=== PATIENT | male | born 1965 | race Caucasian/White ===

== ENCOUNTER → 2016-05-30 | Outpatient (CLI) | payer OTHER ==
[2016-05-30 13:40] LABS: BASO # 0.1 K/mm3 (0.0-0.2); BASO % 1.1 % (0.0-1.0); EOS # 0.1 K/mm3 (0.0-0.50); EOS % 1.2 % (0.0-3.0); LARGE UNSTAINED CELL # 0.2 K/mm3 (0.0-0.4); LARGE UNSTAINED CELL % 4.7 % (0.0-4.0); LYMPH # 1.5 K/mm3 (1.5-4.5); MEAN CORPUSCULAR HEMOGLOBIN 31.7 pg (27.0-33.0); MEAN CORPUSCULAR HGB CONC 32.7 g/dl (32.0-36.5); MEAN CORPUSCULAR VOLUME 97.1 fl (80.0-96.0); MONO # 0.4 K/mm3 (0.0-0.8); MONO % 7.4 % (0.0-5.0); NEUTROPHILS # 2.9 K/mm3 (1.8-7.7); NEUTROPHILS % 56.6 % (36.0-66.0); PLATELET COUNT, AUTOMATED 162 k/mm3 (150-450); RED CELL DISTRIBUTION WIDTH 11.7 % (11.5-14.5); WHITE BLOOD COUNT 5.1 K/mm3 (4.0-10.0)
[2016-05-30 14:10] LABS: ALBUMIN 4.2 GM/DL (3.2-5.2); ALBUMIN/GLOBULIN RATIO 1.08 (1.00-1.93); ALKALINE PHOSPHATASE 55 U/L (45-117); ALT/SGPT 41 U/L (12-78); ANION GAP 8 MEQ/L (8-16); AST/SGOT 31 U/L (15-37); BILIRUBIN,TOTAL 0.6 MG/DL (0.2-1.0); BLOOD UREA NITROGEN 7 MG/DL (7-18); CALCIUM LEVEL 9.3 MG/DL (8.5-10.1); CARBON DIOXIDE LEVEL 29 MEQ/L (21-32); CHLORIDE LEVEL 101 MEQ/L (98-107); CHOLESTEROL LEVEL 270 MG/DL (<200); GLOMERULAR FILTRATION RATE > 60.0 (>56); GLUCOSE, FASTING 84 MG/DL (70-105); POTASSIUM SERUM 4.5 MEQ/L (3.5-5.1); SODIUM LEVEL 138 MEQ/L (136-145); TOTAL PROTEIN 8.1 GM/DL (6.4-8.2); TRIGLYCERIDES LEVEL 81 MG/DL (<150)
== END | disposition home or self-care (01) ==
LOC: M LAB 13:10
PROVIDERS: ATTEND Family Medicine Addiction Medicine
DX: Z00.01 Encounter for general adult medical examination with abnormal findings (principal)

== ENCOUNTER 2016-06-12 12:00 | Emergency (ER) | payer OTHER ==
[2016-06-12] MEDS ORDERED: traMADol 50 MG TAB As Ordered ONE (13:04)
--- NOTE | 2016-06-12 13:43 | REP ---
RIGHT RIB SERIES, WITHOUT PA CHEST: 06/12/2016. Clinical history: Trauma. Lower right rib pain. Findings: No prior studies. There is an old healed and remodeled fracture of the middle one-third shaft of the right clavicle. AC joint with narrowing and prominent spur from the inferior margin of the clavicle. Minor spurring at the inferior margin of the glenoid. There are some degenerative changes of the thoracic spine with marginal osteophytes. Posterior rib articulations were unremarkable on both studies. No gross evidence for compression deformity in the spine with some marginal osteophytes present. The visualized ribs show no displaced rib fracture, focal rib lesion, pleural effusion or pneumothorax. Impression: 1. Old healed and remodeled fracture of the middle one-third shaft of the right clavicle. Minimal degenerative changes at the glenohumeral joint inferiorly and scattered marginal osteophytes throughout the thoracic spine. 2. No visible or displaced rib fracture, focal rib lesion, pleural effusion, pleural thickening or pneumothorax. Signed by Flavio Rainey MD 06/12/2016 01:57 P
--- NOTE | 2016-06-12 14:20 | EDDOCDS ---
Physician Documentation [facility] Name: Sanya Dorantes Sr Age: 50 yrs Sex: Male : 1965 Arrival Date: 06/12/2016 Time: 12:00 Bed PR Private MD: Alexx Gibbs Disposition: 06/12/16 13:39 Discharged to Home/Self Care. Impression: Contusion of right front wall of thorax. - Condition is Stable. - Discharge Instructions: Chest Contusion. - Prescriptions for Naprosyn 500 mg Oral Tablet - take 1 tablet by ORAL route 2 times per day take with food; 30 tablet. - Medication Reconciliation form. - Follow up: Alexx Gibbs; When: Call to arrange an appointment; Reason: Wound/Symptom Recheck, Recheck today's complaints, Worsening of conditions, Continuance of care. - Problem is new. - Symptoms have improved. Historical: - Allergies: no known allergies; - Home Meds: 1. Singulair 10 mg Oral tab 1 tab once daily hasn't picked them up from the pharmacy yet - PMHx: COPD; - PSHx: none; - Social history: Smoking status: Patient uses tobacco products, current every day smoker. No barriers to communication noted, The patient speaks fluent Kiswahili. - Family history: No immediate family members are acutely ill. - : The pt / caregiver states he / she is not on anticoagulants. Home medication list is obtained from the patient. - Exposure Risk Screening:: None identified. Vital Signs: 06/12 12:02 BP 135 / 89; Pulse 81; Resp 18 S; Temp 98.0(O); Pulse Ox 99% on R/A; Weight 74.84 kg / gr2 164.99 lbs (R); Height 5 ft. 8 in. (172.72 cm) (R); Pain 7/10; 13:56 BP 129 / 78 RA Sitting (auto/reg); Pulse 69; Resp 16; Temp 98.1(O); Pulse Ox 96% on jrd R/A; Pain 4/10; 12:02 Body Mass Index 25.09 (74.84 kg, 172.72 cm) gr2 MDM: 12:57 traMADol 50 mg PO once ordered. cc10 12:59 Ribs-Uni Without PA Chest Ordered. EDMS 13:04 Financial registration complete. lg Administered Medications: 13:06 Drug: traMADol 50 mg [tramadol 50 mg tablet (1 tabs)] Route: PO; mb9 Signatures: Dispatcher [employer] Suzie Bhandari, Jose Scott lg RN RN mlb1 Sheldon Beck PA-C PAKarime cc10 Bina Lawrence RN RN ms18 Jose Carnes RN RN mb9 MTDD
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
--- NOTE | 2016-06-14 15:20 | EDDOCDS ---
Physician Documentation [facility] Name: Sanya Dorantes Age: 50 yrs Sex: Male : 1965 Arrival Date: 06/12/2016 Time: 12:00 Bed PR Private MD: Alexx Gibbs Disposition: 06/12/16 13:39 Discharged to Home/Self Care. Impression: Contusion of right front wall of thorax. - Condition is Stable. - Discharge Instructions: Chest Contusion. - Prescriptions for Naprosyn 500 mg Oral Tablet - take 1 tablet by ORAL route 2 times per day take with food; 30 tablet. - Medication Reconciliation form. - Follow up: Alexx Gibbs; When: Call to arrange an appointment; Reason: Wound/Symptom Recheck, Recheck today's complaints, Worsening of conditions, Continuance of care. - Problem is new. - Symptoms have improved. Historical: - Allergies: no known allergies; - Home Meds: 1. Singulair 10 mg Oral tab 1 tab once daily hasn't picked them up from the pharmacy yet - PMHx: COPD; - PSHx: none; - Social history: Smoking status: Patient uses tobacco products, current every day smoker. No barriers to communication noted, The patient speaks fluent Mauritian. - Family history: No immediate family members are acutely ill. - : The pt / caregiver states he / she is not on anticoagulants. Home medication list is obtained from the patient. - Exposure Risk Screening:: None identified. Vital Signs: 06/12 12:02 BP 135 / 89; Pulse 81; Resp 18 S; Temp 98.0(O); Pulse Ox 99% on R/A; Weight 74.84 kg / gr2 164.99 lbs (R); Height 5 ft. 8 in. (172.72 cm) (R); Pain 7/10; 13:56 BP 129 / 78 RA Sitting (auto/reg); Pulse 69; Resp 16; Temp 98.1(O); Pulse Ox 96% on jrd R/A; Pain 4/10; 12:02 Body Mass Index 25.09 (74.84 kg, 172.72 cm) gr2 MDM: 12:57 traMADol 50 mg PO once ordered. cc10 12:59 Ribs-Uni Without PA Chest Ordered. EDMS 13:04 Financial registration complete. lg 14:21 [facility] Payment Agreement was scanned into Personally and attached to record. lg 15:34 T-Sheet-- Draft Copy was scanned into Personally and attached to record. klr Administered Medications: 13:06 Drug: traMADol 50 mg [tramadol 50 mg tablet (1 tabs)] Route: PO; mb9 Signatures: Dispatcher [employer] EDMS Suzie Arriaga, Theo Reg lg Jose Rajan RN RN mlb1 Sheldon Beck PA-C PAKarime cc10 Bina Lawrence RN RN ms18 Jose Carnes RN RN mb9 Taisha Jacobs klr The chart was reviewed and I authenticate all verbal orders and agree with the evaluation and treatment provided.Attachments: 14:21 [facility] Payment Agreement lg 15:34 T-Sheet-- Draft Copy klr Chart Complete MTDD
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
--- NOTE | 2016-06-14 15:20 | EDDOCDS ---
Physician Documentation [facility] Name: Sanya Dorantes Age: 50 yrs Sex: Male : 1965 Arrival Date: 06/12/2016 Time: 12:00 Bed PR Private MD: Alexx Gibbs Disposition: 06/12/16 13:39 Discharged to Home/Self Care. Impression: Contusion of right front wall of thorax. - Condition is Stable. - Discharge Instructions: Chest Contusion. - Prescriptions for Naprosyn 500 mg Oral Tablet - take 1 tablet by ORAL route 2 times per day take with food; 30 tablet. - Medication Reconciliation form. - Follow up: Alexx Gibbs; When: Call to arrange an appointment; Reason: Wound/Symptom Recheck, Recheck today's complaints, Worsening of conditions, Continuance of care. - Problem is new. - Symptoms have improved. Historical: - Allergies: no known allergies; - Home Meds: 1. Singulair 10 mg Oral tab 1 tab once daily hasn't picked them up from the pharmacy yet - PMHx: COPD; - PSHx: none; - Social history: Smoking status: Patient uses tobacco products, current every day smoker. No barriers to communication noted, The patient speaks fluent Cymraes. - Family history: No immediate family members are acutely ill. - : The pt / caregiver states he / she is not on anticoagulants. Home medication list is obtained from the patient. - Exposure Risk Screening:: None identified. Vital Signs: 06/12 12:02 BP 135 / 89; Pulse 81; Resp 18 S; Temp 98.0(O); Pulse Ox 99% on R/A; Weight 74.84 kg / gr2 164.99 lbs (R); Height 5 ft. 8 in. (172.72 cm) (R); Pain 7/10; 13:56 BP 129 / 78 RA Sitting (auto/reg); Pulse 69; Resp 16; Temp 98.1(O); Pulse Ox 96% on jrd R/A; Pain 4/10; 12:02 Body Mass Index 25.09 (74.84 kg, 172.72 cm) gr2 MDM: 12:57 traMADol 50 mg PO once ordered. cc10 12:59 Ribs-Uni Without PA Chest Ordered. EDMS 13:04 Financial registration complete. lg 14:21 [facility] Payment Agreement was scanned into [id number] and attached to record. lg 15:34 T-Sheet-- Draft Copy was scanned into [id number] and attached to record. klr Administered Medications: 13:06 Drug: traMADol 50 mg [tramadol 50 mg tablet (1 tabs)] Route: PO; mb9 Signatures: Dispatcher [employer] EDMS Suzie Arriaga, Theo Reg lg Jose Rajan RN RN mlb1 Sheldon Beck PA-C PAKarime cc10 Bina Lawrence RN RN ms18 Jose Carnes RN RN mb9 Taisha Jacobs klr The chart was reviewed and I authenticate all verbal orders and agree with the evaluation and treatment provided.Attachments: 14:21 [facility] Payment Agreement lg 15:34 T-Sheet-- Draft Copy klr Chart Complete MTDD
== END 2016-06-12 14:19 | disposition home or self-care (01) ==
LOC: M ED 12:00
DX: S20.211A Contusion of right front wall of thorax, initial encounter (principal); Y92.019 Unspecified place in single-family (private) house as the place of occurrence of the external cause; W51.XXXA Accidental striking against or bumped into by another person, initial encounter; Y93.9 Activity, unspecified; Y99.9 Unspecified external cause status; J44.9 Chronic obstructive pulmonary disease, unspecified; Z72.0 Tobacco use; Z79.899 Other long term (current) drug therapy

== ENCOUNTER → 2016-08-02 | Outpatient (CLI) | payer OTHER ==
[~2016-08-02] VITALS: Ht 172.7 cm; Wt 74.4 kg
[~2016-08-02] MED LIST: LIDOCAINE 2% INJ 100 MG/5 ML SDV (FOR ANES.) As Ordered ONE; NS 1,000 ML IV SCH; PROPOFOL 200 MG/20 ML VIAL As Ordered ONE; SING10TA32 PO
--- NOTE | 2016-08-02 15:13 | ROOR ---
Patient Name: Sanya Dorantes Procedure Date: 08/02/2016 2:51 PM Date of : 1965 Age: 50 Room: [facility] Gender: Male Note Status: Finalized Procedure: Colonoscopy Indications: Screening for colorectal malignant neoplasm Providers: Jabier HELMS MD Referring MD: Alexx SANTOYO MD Requesting Provider: Medicines: Monitored Anesthesia Care Complications: No immediate complications. Procedure: Pre-Anesthesia Assessment: - The heart rate, respiratory rate, oxygen saturations, blood pressure, adequacy of pulmonary ventilation, and response to care were monitored throughout the procedure. The Colonoscope was introduced through the anus and advanced to the cecum, identified by appendiceal orifice and ileocecal valve. The colonoscopy was performed without difficulty. The patient tolerated the procedure well. The quality of the bowel preparation was good. Findings: The perianal and digital rectal examinations were normal. A 5 mm polyp was found in the rectum. The polyp was sessile. The polyp was removed with a cold snare. Resection and retrieval were complete. Two sessile polyps were found in the sigmoid colon and cecum. The polyps were 3 to 5 mm in size. These polyps were removed with a cold snare. Resection and retrieval were complete. Small Internal Hemorrhoids. Impression: - One 5 mm polyp in the rectum, removed with a cold snare. Resected and retrieved. - Two 3 to 5 mm polyps in the sigmoid colon and in the cecum, removed with a cold snare. Resected and retrieved. - Small Internal Hemorrhoids. - The examination was otherwise normal. Recommendation: - Repeat colonoscopy in 3 years for surveillance. Jabier Helms MD Jabier HELMS MD 08/02/2016 3:13:05 PM This report has been signed electronically. Number of Addenda: 0 Note Initiated On: 08/02/2016 2:51 PM Estimated Blood Loss: Estimated blood loss: none.
[2016-08-02 15:30] VITALS: BP 140/88
== END ==
LOC: M OPP 12:39
PROVIDERS: ATTEND Internal Medicine Gastroenterology
DX: Z12.11 Encounter for screening for malignant neoplasm of colon (principal); D12.5 Benign neoplasm of sigmoid colon; D12.0 Benign neoplasm of cecum; K62.1 Rectal polyp; K64.8 Other hemorrhoids; F17.200 Nicotine dependence, unspecified, uncomplicated

== ENCOUNTER 2017-08-18 12:52 | Emergency (ER) | payer OTHER ==
[2017-08-18] MEDS: NS 1,000 ML IV (13:15)
[2017-08-18 13:32] LABS: BASO # 0.1 10^3/uL (0.0-0.2); BASO % 1.5 % (0.0-1.0); EOS # 0.1 10^3/uL (0.0-0.50); EOS % 1.7 % (0.0-3.0); HEMATOCRIT 37.5 % (42.0-52.0); HEMOGLOBIN 13.1 g/dl (13.5-17.5); IMMATURE GRANULOCYTE % 0.2 % (0-3.0); LYMPH # 2.2 10^3/uL (1.5-4.5); LYMPH % 39.7 % (24.0-44.0); MEAN CORPUSCULAR HEMOGLOBIN 32.8 pg (27.0-33.0); MEAN CORPUSCULAR HGB CONC 34.9 g/dl (32.0-36.5); MONO # 0.6 10^3/uL (0.0-0.8); MONO % 11.8 % (0.0-5.0); NEUTROPHILS # 2.5 10^3/uL (1.8-7.7); NEUTROPHILS % 45.1 % (36.0-66.0); PLATELET COUNT, AUTOMATED 118 10^3/uL (150-450); RED BLOOD COUNT 3.99 10^6/uL (4.30-6.10); RED CELL DISTRIBUTION WIDTH 12.2 % (11.5-14.5); WHITE BLOOD COUNT 5.4 10^3/uL (4.0-10.0)
[2017-08-18] MEDS: LORazepam 2 MG/ML VIAL (J2060) IV (13:52)
[2017-08-18 13:59] LABS: ANION GAP 8 MEQ/L (8-16); BLOOD UREA NITROGEN 6 MG/DL (7-18); CALCIUM LEVEL 8.4 MG/DL (8.5-10.1); CARBON DIOXIDE LEVEL 24 MEQ/L (21-32); CHLORIDE LEVEL 104 MEQ/L (98-107); CREATININE FOR GFR 0.64 MG/DL (0.70-1.30); ETHYL ALCOHOL (ETHANOL) 0.403 % (0.000-0.010); GLOMERULAR FILTRATION RATE > 60.0 (>56); GLUCOSE, FASTING 82 MG/DL (70-100); POTASSIUM SERUM 3.7 MEQ/L (3.5-5.1); SODIUM LEVEL 136 MEQ/L (136-145)
[2017-08-18 14:02] LABS: LACTIC ACID SEPSIS PROTOCOL 2.3 MMOL/L (0.4-2.0)
== END 2017-08-18 15:50 | disposition home or self-care (01) ==
LOC: M ED 12:52
DX: Z04.6 Encounter for general psychiatric examination, requested by authority (principal); F10.929 Alcohol use, unspecified with intoxication, unspecified; F17.200 Nicotine dependence, unspecified, uncomplicated; Z79.51 Long term (current) use of inhaled steroids; Z79.899 Other long term (current) drug therapy
CPT/HCPCS: J2060

== ENCOUNTER 2017-10-31 15:05 | Emergency (ER) | payer OTHER | END 2017-10-31 17:12 | disposition home or self-care (01) | LOC: M ED 15:05 | DX: F10.120 Alcohol abuse with intoxication, uncomplicated (principal); R29.6 Repeated falls; I10 Essential (primary) hypertension; Z79.899 Other long term (current) drug therapy; F17.200 Nicotine dependence, unspecified, uncomplicated | CPT/HCPCS: 73130 ==

== ENCOUNTER 2018-07-20 08:45 | Emergency (ER) | payer OTHER ==
[~2018-07-20] VITALS: Ht 172.7 cm; Wt 77.3 kg
[~2018-07-20 08:45] MED LIST changes: +ALLE180T33 PO; +CETI10TA; +CYCL5TAB; +FLUTISP; +FOLI1TAB11 PO; +KETO0.02; -LIDOCAINE 2% INJ 100 MG/5 ML SDV (FOR ANES.) As Ordered ONE; +MELA3TAB PO; +MULTCAP PO; +NORV5TAB PO; -NS 1,000 ML IV SCH; -PROPOFOL 200 MG/20 ML VIAL As Ordered ONE
[2018-07-20 09:05] VITALS: BP 141/87
[2018-07-20 10:07] LABS: HEMATOCRIT 42.3 % (42.0-52.0); HEMOGLOBIN 14.4 g/dl (13.5-17.5); MEAN CORPUSCULAR HEMOGLOBIN 33.3 pg (27.0-33.0); MEAN CORPUSCULAR VOLUME 97.9 fl (80.0-96.0); PLATELET COUNT, AUTOMATED 131 10^3/uL (150-450); RED BLOOD COUNT 4.32 10^6/uL (4.30-6.10); WHITE BLOOD COUNT 3.8 10^3/uL (4.0-10.0)
[2018-07-20 10:40] LABS: BLOOD UREA NITROGEN 6 MG/DL (7-18); CALCIUM LEVEL 8.1 MG/DL (8.5-10.1); CARBON DIOXIDE LEVEL 26 MEQ/L (21-32); CHLORIDE LEVEL 109 MEQ/L (98-107); CREATININE FOR GFR 0.62 MG/DL (0.70-1.30); ETHYL ALCOHOL (ETHANOL) 0.437 % (0.000-0.010); GLOMERULAR FILTRATION RATE > 60.0 (>56); GLUCOSE, FASTING 87 MG/DL (70-100); POTASSIUM SERUM 3.8 MEQ/L (3.5-5.1); SODIUM LEVEL 143 MEQ/L (136-145)
== END 2018-07-20 10:02 | disposition home or self-care (01) ==
LOC: M ED 08:45
DX: F10.10 Alcohol abuse, uncomplicated (principal); I10 Essential (primary) hypertension; F17.200 Nicotine dependence, unspecified, uncomplicated; Z79.899 Other long term (current) drug therapy
CPT/HCPCS: 36415; 80048; 85027; 99284; G0480

== ENCOUNTER 2018-10-02 13:35 | Emergency (ER) | payer OTHER ==
[~2018-10-02] VITALS: Ht 172.7 cm; Wt 77.9 kg
[2018-10-02 15:01] LABS: HEMATOCRIT 43.7 % (42.0-52.0); HEMOGLOBIN 15.1 g/dl (13.5-17.5); MEAN CORPUSCULAR HEMOGLOBIN 33.6 pg (27.0-33.0); MEAN CORPUSCULAR HGB CONC 34.6 g/dl (32.0-36.5); MEAN CORPUSCULAR VOLUME 97.1 fl (80.0-96.0); PLATELET COUNT, AUTOMATED 161 10^3/uL (150-450); WHITE BLOOD COUNT 5.6 10^3/uL (4.0-10.0)
[2018-10-02 15:26] LABS: AMPHETAMINES LEVEL URINE NEGATIVE (NEGATIVE); BARBITURATES URINE NEGATIVE (NEGATIVE); BENZODIAZEPINES URINE NEGATIVE (NEGATIVE); CANNABINOIDS URINE NEGATIVE (NEGATIVE); COCAINE METABOLITE URINE NEGATIVE (NEGATIVE); METHADONE URINE NEGATIVE (NEGATIVE); OPIATES URINE NEGATIVE (NEGATIVE); PHENCYCLIDINE URINE NEGATIVE (NEGATIVE)
[2018-10-02 15:36] LABS: ACETAMINOPHEN LEVEL < 2.0 UG/ML (10.0-30.0); ALBUMIN 4.3 GM/DL (3.2-5.2); ALT/SGPT 51 U/L (12-78); BILIRUBIN,DIRECT < 0.1 MG/DL (0.0-0.2); BILIRUBIN,TOTAL 0.3 MG/DL (0.2-1.0); BLOOD UREA NITROGEN 6 MG/DL (7-18); CALCIUM LEVEL 8.7 MG/DL (8.5-10.1); CARBON DIOXIDE LEVEL 25 MEQ/L (21-32); CHLORIDE LEVEL 107 MEQ/L (98-107); CREATININE FOR GFR 0.74 MG/DL (0.70-1.30); ETHYL ALCOHOL (ETHANOL) 0.451 % (0.000-0.010); GLOMERULAR FILTRATION RATE > 60.0 (>56); GLUCOSE, FASTING 83 MG/DL (70-100); POTASSIUM SERUM 3.9 MEQ/L (3.5-5.1); SALICYLATE LEVEL 8.8 MG/DL (5.0-30.0); SODIUM LEVEL 143 MEQ/L (136-145); TOTAL PROTEIN 8.6 GM/DL (6.4-8.2)
[2018-10-03 08:18] VITALS: BP 149/84
== END 2018-10-03 08:21 | disposition home or self-care (01) ==
LOC: M ED 13:35
DX: F10.129 Alcohol abuse with intoxication, unspecified (principal); I10 Essential (primary) hypertension; J44.9 Chronic obstructive pulmonary disease, unspecified; Z79.899 Other long term (current) drug therapy; F17.210 Nicotine dependence, cigarettes, uncomplicated
CPT/HCPCS: 36415; 80048; 80076; 80307; 84443; 85027; 99284; G0480

== ENCOUNTER 2018-11-29 17:19 | Emergency (ER) | payer OTHER ==
[~2018-11-29] VITALS: Ht 172.7 cm; Wt 79.5 kg
[~2018-11-29 17:19] MED LIST changes: -MELA3TAB PO; +MELA3TAB63 PO
[2018-11-29 18:00] LABS: BASO # 0.1 10^3/uL (0.0-0.2); BASO % 1.7 % (0.0-1.0); EOS # 0.1 10^3/uL (0.0-0.50); HEMATOCRIT 41.1 % (42.0-52.0); HEMOGLOBIN 14.2 g/dl (13.5-17.5); LYMPH # 2.4 10^3/uL (1.5-4.5); LYMPH % 37.2 % (24.0-44.0); MEAN CORPUSCULAR HEMOGLOBIN 33.8 pg (27.0-33.0); MEAN CORPUSCULAR HGB CONC 34.5 g/dl (32.0-36.5); MEAN CORPUSCULAR VOLUME 97.9 fl (80.0-96.0); MONO # 0.5 10^3/uL (0.0-0.8); MONO % 7.7 % (0.0-5.0); NEUTROPHILS # 3.3 10^3/uL (1.8-7.7); NEUTROPHILS % 51.1 % (36.0-66.0); PLATELET COUNT, AUTOMATED 212 10^3/uL (150-450); WHITE BLOOD COUNT 6.5 10^3/uL (4.0-10.0)
[2018-11-29 18:01] VITALS: BP 155/83
--- NOTE | 2018-11-29 18:04 | REPVR ---
EXAM: CT Head Without Contrast EXAM DATE/TIME: 11/29/2018 5:39 PM CLINICAL HISTORY: 53 years old, male; Pain; Other: Headache/seizue; Additional info: Headache/seizure TECHNIQUE: Imaging protocol: Computed tomography images of the head without contrast. Radiation optimization: All CT scans at this facility use at least one of these dose optimization techniques: automated exposure control; mA and/or kV adjustment per patient size (includes targeted exams where dose is matched to clinical indication); or iterative reconstruction. COMPARISON: CT Head without contrast 10/31/2017 4:05 PM FINDINGS: Brain: Normal. No hemorrhage. Unremarkable white matter. No mass effect. Ventricles: Normal. No ventriculomegaly. Bones/joints: Unremarkable. No acute fracture. Sinuses: Opacification of the left frontal sinus and mucosal thickening of ethmoid sinuses and visualized left maxillary sinus. Mastoid air cells: Visualized mastoid air cells are well aerated. No mastoid effusion. Soft tissues: Unremarkable. Other findings: Hemispheric volume loss. IMPRESSION: 1. Hemispheric volume loss. 2. Sinusitis. Electronically signed by: Nicole Parker On 11/29/2018 18:03:37 PM
[2018-11-29] MEDS ORDERED: DOXY100C37 PO (18:07)
[2018-11-29 18:27] LABS: ALBUMIN 3.1 GM/DL (3.2-5.2); ALT/SGPT 44 U/L (12-78); BILIRUBIN,DIRECT 0.1 MG/DL (0.0-0.2); BILIRUBIN,TOTAL 0.3 MG/DL (0.2-1.0); BLOOD UREA NITROGEN 5 MG/DL (7-18); CALCIUM LEVEL 8.1 MG/DL (8.5-10.1); CARBON DIOXIDE LEVEL 28 MEQ/L (21-32); CHLORIDE LEVEL 106 MEQ/L (98-107); CREATININE FOR GFR 0.64 MG/DL (0.70-1.30); GLOMERULAR FILTRATION RATE > 60.0 (>56); GLUCOSE, FASTING 94 MG/DL (70-100); MAGNESIUM LEVEL 2.4 MG/DL (1.8-2.4); POTASSIUM SERUM 3.9 MEQ/L (3.5-5.1); SODIUM LEVEL 142 MEQ/L (136-145); TOTAL PROTEIN 7.4 GM/DL (6.4-8.2)
[2018-11-29 18:37] LABS: AMPHETAMINES LEVEL URINE NEGATIVE (NEGATIVE); BARBITURATES URINE NEGATIVE (NEGATIVE); BENZODIAZEPINES URINE NEGATIVE (NEGATIVE); CANNABINOIDS URINE NEGATIVE (NEGATIVE); COCAINE METABOLITE URINE NEGATIVE (NEGATIVE); METHADONE URINE NEGATIVE (NEGATIVE); OPIATES URINE NEGATIVE (NEGATIVE); PHENCYCLIDINE URINE NEGATIVE (NEGATIVE)
== END 2018-11-29 19:04 | disposition left against medical advice (07) ==
LOC: M ED 17:19
DX: F10.129 Alcohol abuse with intoxication, unspecified (principal); J32.9 Chronic sinusitis, unspecified; J44.9 Chronic obstructive pulmonary disease, unspecified; R56.9 Unspecified convulsions; Z79.899 Other long term (current) drug therapy; F17.210 Nicotine dependence, cigarettes, uncomplicated
CPT/HCPCS: 36415; 70450; 80048; 80076; 80307; 83735; 85025; 99284; G0480

== ENCOUNTER → 2019-03-19 | Outpatient (CLI) | payer OTHER ==
[~2019-03-19] MED LIST changes: +DOXY100C37 PO
--- NOTE | 2019-03-19 15:53 | REP ---
MRI lumbar spine: 03/19/2019. Indication: Low back pain. Comparison: None. Technique: Multiplanar short and long TR sequences of the lumbar spine were performed without IV Gadolinium. Findings: Vertebral body alignment is anatomic. Disc desiccation and disc space narrowing are present at L1/L2, L2/L3 and L3/L4: The visualized cord is unremarkable. No significant paraspinal soft tissue abnormalities are detected. L1/L2, L2/L3 and L3/L4: Disc and spur complexes are present most pronounced anteriorly without significant spinal canal or neural foraminal narrowing. The recess and neural foraminal narrowing is most pronounced at L3/L4 on the right which is moderate. L4/L5 and L5/S1: There is no focal disc herniation or significant spinal canal narrowing. Facet arthropathy and minor disc bulging results and mild bilateral neural foraminal narrowing. Impression: Multilevel degenerative sequelae as described most pronounced on the right at L3/L4. Electronically Signed by Tyron Mayfield DO 03/19/2019 03:44 P
== END ==
LOC: M RAD 13:39
PROVIDERS: ATTEND Nurse Practitioner Family
DX: M54.5 Low back pain (principal)

== ENCOUNTER → 2019-07-05 | Outpatient (REF) | payer OTHER, MEDICAID ==
[2019-07-05 17:13] LABS: BASO # 0.1 10^3/uL (0.0-0.2); BASO % 0.9 % (0.0-1.0); EOS # 0.4 10^3/uL (0.0-0.5); EOS % 4.9 % (0.0-3.0); HEMATOCRIT 41.4 % (42.0-52.0); HEMOGLOBIN 13.8 g/dl (13.5-17.5); LYMPH # 1.4 10^3/uL (1.5-5.0); LYMPH % 18.1 % (24.0-44.0); MEAN CORPUSCULAR HEMOGLOBIN 32.4 pg (27.0-33.0); MEAN CORPUSCULAR HGB CONC 33.3 g/dl (32.0-36.5); MEAN CORPUSCULAR VOLUME 97.2 fl (80.0-96.0); MONO % 12.5 % (0.0-5.0); NEUTROPHILS # 4.8 10^3/uL (1.5-8.5); NEUTROPHILS % 63.3 % (36.0-66.0); PLATELET COUNT, AUTOMATED 230 10^3/uL (150-450); RED BLOOD COUNT 4.26 10^6/uL (4.30-6.10); WHITE BLOOD COUNT 7.6 10^3/uL (4.0-10.0)
[2019-07-05 17:48] LABS: ALBUMIN 4.1 GM/DL (3.2-5.2); ALT/SGPT 40 U/L (12-78); BILIRUBIN,TOTAL 1.1 MG/DL (0.2-1.0); BLOOD UREA NITROGEN 6 MG/DL (7-18); CARBON DIOXIDE LEVEL 28 MEQ/L (21-32); CHLORIDE LEVEL 101 MEQ/L (98-107); CHOLESTEROL LEVEL 195 MG/DL (<200); CHOLESTEROL RISK RATIO 3.362 (<5); CREATININE FOR GFR 0.84 MG/DL (0.70-1.30); FREE T4 1.44 NG/DL (0.76-1.46); GLOMERULAR FILTRATION RATE > 60.0 (>56); GLUCOSE, FASTING 102 MG/DL (70-100); HDL CHOLESTEROL 58 MG/DL (>40); LDL CHOLESTEROL 102 MG/DL (<100); NON-HDL-C 137 MG/DL; POTASSIUM SERUM 4.1 MEQ/L (3.5-5.1); SODIUM LEVEL 135 MEQ/L (136-145); TOTAL PROTEIN 7.8 GM/DL (6.4-8.2); TRIGLYCERIDES LEVEL 174 MG/DL (<150)
[2019-07-05 17:49] LABS: TOTAL 25(OH) VITAMIN D 16.2 NG/ML (30.0-100.0)
== END ==
LOC: M LAB REF 16:22
PROVIDERS: ATTEND Physician Assistant
DX: F17.200 Nicotine dependence, unspecified, uncomplicated (principal); N52.01 Erectile dysfunction due to arterial insufficiency; G40.803 Other epilepsy, intractable, with status epilepticus; I10 Essential (primary) hypertension; F10.10 Alcohol abuse, uncomplicated

== ENCOUNTER 2019-09-10 14:32 | Emergency (ER) | payer MEDICAID, OTHER ==
[~2019-09-10] VITALS: Ht 170.2 cm; Wt 70.5 kg
[2019-09-10] MEDS ORDERED: LORazepam 2 MG TAB PO PRN (14:45)
[2019-09-10 15:10] LABS: HEMATOCRIT 45.8 % (42.0-52.0); HEMOGLOBIN 15.5 g/dl (13.5-17.5); MEAN CORPUSCULAR HGB CONC 33.8 g/dl (32.0-36.5); MEAN CORPUSCULAR VOLUME 94.6 fl (80.0-96.0); PLATELET COUNT, AUTOMATED 224 10^3/uL (150-450); RED BLOOD COUNT 4.84 10^6/uL (4.30-6.10); WHITE BLOOD COUNT 12.2 10^3/uL (4.0-10.0)
[2019-09-10 15:50] LABS: ACETAMINOPHEN LEVEL < 2.0 UG/ML (10.0-30.0); ALBUMIN 4.2 GM/DL (3.2-5.2); ALT/SGPT 24 U/L (12-78); AMPHETAMINES LEVEL URINE NEGATIVE (NEGATIVE); BARBITURATES URINE NEGATIVE (NEGATIVE); BENZODIAZEPINES URINE NEGATIVE (NEGATIVE); BILIRUBIN,DIRECT 0.1 MG/DL (0.0-0.2); BILIRUBIN,TOTAL 0.3 MG/DL (0.2-1.0); BLOOD UREA NITROGEN 11 MG/DL (7-18); CALCIUM LEVEL 8.6 MG/DL (8.5-10.1); CANNABINOIDS URINE NEGATIVE (NEGATIVE); CARBON DIOXIDE LEVEL 23 MEQ/L (21-32); CHLORIDE LEVEL 106 MEQ/L (98-107); COCAINE METABOLITE URINE NEGATIVE (NEGATIVE); CPK CREATINE PHOSPHOKINASE 107 U/L (39-308); CREATININE FOR GFR 0.81 MG/DL (0.70-1.30); ETHYL ALCOHOL (ETHANOL) 0.357 % (0.000-0.010); GLOMERULAR FILTRATION RATE > 60.0 (>56); GLUCOSE, FASTING 87 MG/DL (70-100); METHADONE URINE NEGATIVE (NEGATIVE); OPIATES URINE NEGATIVE (NEGATIVE); PHENCYCLIDINE URINE NEGATIVE (NEGATIVE); POTASSIUM SERUM 4.2 MEQ/L (3.5-5.1); SALICYLATE LEVEL 7.1 MG/DL (5.0-30.0); SODIUM LEVEL 142 MEQ/L (136-145); TOTAL PROTEIN 8.4 GM/DL (6.4-8.2)
[2019-09-10] MEDS ORDERED: THIAMINE 100 MG TAB PO SCH (21:00)
[2019-09-11 06:18] VITALS: BP 133/81
[2019-09-11] MEDS ORDERED: FOLIC ACID 1 MG TAB PO SCH (09:00)
[2019-09-11] MEDS ORDERED: MULTIVITAMINS/MINERALS THERAP 1 TAB PO SCH (09:00)
== END 2019-09-11 06:30 | disposition home or self-care (01) ==
LOC: M ED 14:32
DX: F10.129 Alcohol abuse with intoxication, unspecified (principal); F91.9 Conduct disorder, unspecified; R56.9 Unspecified convulsions; J30.89 Other allergic rhinitis; Z79.899 Other long term (current) drug therapy
CPT/HCPCS: 36415; 80048; 80076; 80307; 82550; 84443; 85027; 99284; G0480

== ENCOUNTER → 2019-10-08 | Outpatient (REF) | payer OTHER, MEDICAID ==
[2019-10-08 17:43] LABS: BASO # 0.1 10^3/uL (0.0-0.2); BASO % 2.5 % (0.0-1.0); EOS # 0.4 10^3/uL (0.0-0.5); EOS % 6.8 % (0.0-3.0); HEMATOCRIT 41.5 % (42.0-52.0); HEMOGLOBIN 14.2 g/dl (13.5-17.5); LYMPH % 37.8 % (24.0-44.0); MEAN CORPUSCULAR HGB CONC 34.2 g/dl (32.0-36.5); MEAN CORPUSCULAR VOLUME 96.5 fl (80.0-96.0); MONO # 0.5 10^3/uL (0.0-0.8); MONO % 8.5 % (0.0-5.0); NEUTROPHILS # 2.3 10^3/uL (1.5-8.5); PLATELET COUNT, AUTOMATED 152 10^3/uL (150-450); WHITE BLOOD COUNT 5.3 10^3/uL (4.0-10.0)
[2019-10-08 17:58] LABS: ALBUMIN 3.7 GM/DL (3.2-5.2); ALT/SGPT 60 U/L (12-78); BILIRUBIN,TOTAL 0.3 MG/DL (0.2-1.0); BLOOD UREA NITROGEN 5 MG/DL (7-18); CALCIUM LEVEL 8.4 MG/DL (8.5-10.1); CARBON DIOXIDE LEVEL 26 MEQ/L (21-32); CHLORIDE LEVEL 104 MEQ/L (98-107); CHOLESTEROL LEVEL 230 MG/DL (<200); CHOLESTEROL RISK RATIO 2.149 (<5); CREATININE FOR GFR 0.63 MG/DL (0.70-1.30); GLOMERULAR FILTRATION RATE > 60.0 (>56); GLUCOSE, FASTING 92 MG/DL (70-100); HDL CHOLESTEROL 107 MG/DL (>40); LDL CHOLESTEROL 112 MG/DL (<100); NON-HDL-C 123 MG/DL; POTASSIUM SERUM 3.7 MEQ/L (3.5-5.1); SODIUM LEVEL 138 MEQ/L (136-145); TOTAL 25(OH) VITAMIN D 17.3 NG/ML (30.0-100.0); TOTAL PROTEIN 7.7 GM/DL (6.4-8.2); TRIGLYCERIDES LEVEL 57 MG/DL (<150)
[2019-10-09 09:48] LABS: HEMOGLOBIN A1c 5.3 %
== END ==
LOC: M LAB REF 17:19
PROVIDERS: ATTEND Family Medicine
DX: Z00.01 Encounter for general adult medical examination with abnormal findings (principal)

== ENCOUNTER 2020-01-24 15:25 | Emergency (ER) | payer MEDICAID, OTHER ==
[~2020-01-24] VITALS: Ht 172.7 cm; Wt 75.0 kg
--- NOTE | 2020-01-24 17:26 | REPVR ---
PROCEDURE INFORMATION: Exam: CT Head Without Contrast Exam date and time: 01/24/2020 5:10 PM Age: 54 years old Clinical indication: Injury or trauma; Fall; Blunt trauma (contusions or hematomas) TECHNIQUE: Imaging protocol: Computed tomography of the head without contrast. Radiation optimization: All CT scans at this facility use at least one of these dose optimization techniques: automated exposure control; mA and/or kV adjustment per patient size (includes targeted exams where dose is matched to clinical indication); or iterative reconstruction. COMPARISON: CT Head without contrast 11/29/2018 5:36 PM FINDINGS: Brain: There is volume loss.There is no evidence of infarct, dumont-white matter differentiation is preserved. There is no hemorrhage or extra-axial collection. There is no mass. Cerebral ventricles: There is no hydrocephalus. Bones/joints: Unremarkable. No acute fracture. Paranasal sinuses: There is an air-fluid level in the left maxillary sinus. No adjacent fracture. Mastoid air cells: Visualized mastoid air cells are well aerated. Soft tissues: Unremarkable. IMPRESSION: No intracranial injury or lesion and no change from prior scan. Electronically signed by: Jose Elam On 01/24/2020 17:26:22 PM
--- NOTE | 2020-01-24 17:32 | REPVR ---
PROCEDURE INFORMATION: Exam: CT Cervical Spine Without Contrast Exam date and time: 01/24/2020 5:10 PM Age: 54 years old Clinical indication: Injury or trauma; Fall; Initial encounter; Blunt trauma TECHNIQUE: Imaging protocol: Computed tomography images of the cervical spine without contrast. Radiation optimization: All CT scans at this facility use at least one of these dose optimization techniques: automated exposure control; mA and/or kV adjustment per patient size (includes targeted exams where dose is matched to clinical indication); or iterative reconstruction. COMPARISON: CT Spine,cervical w/o contrast 10/31/2017 4:05 PM FINDINGS: Vertebrae: There is no fracture. Alignment is normal. Discs/Spinal canal/Neural foramina: There is spondylosis and disc space narrowing with posterior osteophytes and disc bulges at multiple levels. This results in moderate segmental central spinal stenosis at C4-C5 and C5-C6 and mild central stenosis at C6-C7. There is multilevel foraminal stenosis. Soft tissues: Unremarkable. Lungs: Lung apices are normal. IMPRESSION: 1. No fracture of the cervical spine. 2. Disc disease and degenerative findings resulting in segmental central spinal stenosis and multilevel foraminal stenosis. Degenerative findings are stable compared with prior scan Electronically signed by: Jose Elam On 01/24/2020 17:32:25 PM
[2020-01-24 17:59] VITALS: BP 118/71
--- NOTE | 2020-01-26 18:31 | ED PDOC ---
Post-Departure Follow-Up jose elias cui faxed formal report of ct c spine for fu Rebecca Fairchild MD Jan 26, 2020 18:31
== END 2020-01-24 18:01 | disposition home or self-care (01) ==
LOC: EDBD 15:25 → M ED 15:25
DX: S00.01XA Abrasion of scalp, initial encounter (principal); W10.8XXA Fall (on) (from) other stairs and steps, initial encounter; Y92.019 Unspecified place in single-family (private) house as the place of occurrence of the external cause; Y99.9 Unspecified external cause status; F10.129 Alcohol abuse with intoxication, unspecified; M50.90 Cervical disc disorder, unspecified, unspecified cervical region; M48.02 Spinal stenosis, cervical region; J44.9 Chronic obstructive pulmonary disease, unspecified; F17.200 Nicotine dependence, unspecified, uncomplicated

== ENCOUNTER 2020-10-05 15:53 | Emergency (ER) | payer OTHER ==
[~2020-10-05] VITALS: Ht 177.8 cm; Wt 75.0 kg
[~2020-10-05 15:53] MED LIST changes: -MELA3TAB63 PO; +MELA3TAB70 PO
[2020-10-05 16:03] VITALS: BP 133/80
[2020-10-05] MEDS ORDERED: NALT50TA4 (16:03)
[2020-10-05] MEDS ORDERED: TEGR200T PO (16:03)
[2020-10-05] MEDS ORDERED: CETI-24 (16:03)
[2020-10-05] MEDS ORDERED: PAXI10TA12 PO (16:03)
[2020-10-05 16:34] LABS: HEMOGLOBIN 13.9 g/dl (13.5-17.5); MEAN CORPUSCULAR HGB CONC 33.9 g/dl (32.0-36.5); MEAN CORPUSCULAR VOLUME 97.4 fl (80.0-96.0); PLATELET COUNT, AUTOMATED 179 10^3/uL (150-450); RED BLOOD COUNT 4.21 10^6/uL (4.30-6.10); WHITE BLOOD COUNT 7.2 10^3/uL (4.0-10.0)
[2020-10-05 17:01] LABS: RSV AMPLIFICATION NEGATIVE (NEGATIVE)
[2020-10-05 17:08] LABS: ACETAMINOPHEN LEVEL < 2.0 UG/ML (10.0-30.0); ALBUMIN 4.1 GM/DL (3.2-5.2); ALT/SGPT 27 U/L (12-78); BILIRUBIN,DIRECT 0.2 MG/DL (0.0-0.2); BILIRUBIN,TOTAL 0.4 MG/DL (0.2-1.0); BLOOD UREA NITROGEN 6 MG/DL (7-18); CALCIUM LEVEL 8.6 MG/DL (8.5-10.1); CARBON DIOXIDE LEVEL 26 MEQ/L (21-32); CHLORIDE LEVEL 98 MEQ/L (98-107); CREATININE FOR GFR 0.65 MG/DL (0.70-1.30); ETHYL ALCOHOL (ETHANOL) 0.497 % (0.000-0.010); GLOMERULAR FILTRATION RATE > 60.0 (>56); GLUCOSE, FASTING 108 MG/DL (70-100); POTASSIUM SERUM 3.8 MEQ/L (3.5-5.1); SALICYLATE LEVEL 7.9 MG/DL (5.0-30.0); SODIUM LEVEL 135 MEQ/L (136-145); TOTAL PROTEIN 8.3 GM/DL (6.4-8.2)
[2020-10-05 17:21] LABS: AMPHETAMINES LEVEL URINE NEGATIVE (NEGATIVE); BARBITURATES URINE NEGATIVE (NEGATIVE); BENZODIAZEPINES URINE NEGATIVE (NEGATIVE); CANNABINOIDS URINE NEGATIVE (NEGATIVE); COCAINE METABOLITE URINE NEGATIVE (NEGATIVE); METHADONE URINE NEGATIVE (NEGATIVE); OPIATES URINE NEGATIVE (NEGATIVE); PHENCYCLIDINE URINE NEGATIVE (NEGATIVE)
== END 2020-10-05 17:02 | disposition left against medical advice (07) ==
LOC: M ED 15:53 → EDBD 15:53 → M ED 17:02
DX: F10.129 Alcohol abuse with intoxication, unspecified (principal); I10 Essential (primary) hypertension; J44.9 Chronic obstructive pulmonary disease, unspecified; F17.200 Nicotine dependence, unspecified, uncomplicated

== ENCOUNTER 2021-03-04 13:37 | Inpatient (IN) | payer OTHER ==
[~2021-03-04] VITALS: Ht 172.7 cm; Wt 74.2 kg
[~2021-03-04 13:37] MED LIST changes: +CETI-24 PO; +DOXY-443 PO; -DOXY100C37 PO; +NALT50TA4 PO; +PAXI10TA12 PO; +TEGR200T PO
--- OUTSIDE RECORDS SUMMARY | 2021-03-04 13:48 | CCD ---
Author Author [facility] Organization [facility] Address Unknown Phone Unavailable Care Team Providers Care Door Paneler Name Role Phone GIO RUANO MD Unavailable Unavailable GIO RUANO MD Unavailable Unavailable GIO RUANO MD Unavailable Unavailable GIO RUANO MD Unavailable Unavailable GIO RUANO MD Unavailable Unavailable GIO RUANO MD Unavailable Unavailable GIO RUANO MD Unavailable Unavailable GIO RUANO MD Unavailable Unavailable Yayo Gibbs MD Unavailable Unavailable Yayo Gibbs MD Unavailable Unavailable Yayo Gibbs MD Unavailable Unavailable Yayo Gibbs MD Unavailable Unavailable Yayo Gibbs MD Unavailable Unavailable Yayo Gibbs MD Unavailable Unavailable Yayo Gibbs MD Unavailable Unavailable Yayo Gibbs MD Unavailable Unavailable Yayo Gibbs MD Unavailable Unavailable Yayo Gibbs MD Unavailable Unavailable Yayo Gibbs MD Unavailable Unavailable Yayo Gibbs MD Unavailable Unavailable Yayo Gibbs MD Unavailable Unavailable Yayo Gibbs MD Unavailable Unavailable Yayo Gibbs MD Unavailable Unavailable Yayo Gibbs MD Unavailable Unavailable Yayo Gibbs MD Unavailable Unavailable Yayo Gibbs MD Unavailable Unavailable Yayo Gibbs MD Unavailable Unavailable Yayo Gibbs MD Unavailable Unavailable Yayo Gibbs MD Unavailable Unavailable Yayo Gibbs MD Unavailable Unavailable Yayo Gibbs MD Unavailable Unavailable Yayo Gibbs MD Unavailable Unavailable Yayo Gibbs MD Unavailable Unavailable Yayo Gibbs MD Unavailable Unavailable Yayo Gibbs MD Unavailable Unavailable Yayo Gibbs MD Unavailable Unavailable Yayo Gibbs MD Unavailable Unavailable Yayo Gibbs MD Unavailable Unavailable Yayo Gibbs MD Unavailable Unavailable Yayo Gibbs MD Unavailable Unavailable Yayo Gibbs MD Unavailable Unavailable Yayo Gibbs MD Unavailable Unavailable Yayo Gibbs MD Unavailable Unavailable Yayo Gibbs MD Unavailable Unavailable Yayo Gibbs MD Unavailable Unavailable Yayo Gibbs MD Unavailable Unavailable Yayo Gibbs MD Unavailable Unavailable Yayo Gibbs MD Unavailable Unavailable Yayo Gibbs MD Unavailable Unavailable Yayo Gibbs MD Unavailable Unavailable Yayo Gibbs MD Unavailable Unavailable Yayo Gibbs MD Unavailable Unavailable Yayo Gibbs MD Unavailable Unavailable Yayo Gibbs MD Unavailable Unavailable Yayo Gibbs MD Unavailable Unavailable Yayo Gibbs MD Unavailable Unavailable Yyao Gibbs MD Unavailable Unavailable Yayo Gibbs MD Unavailable Unavailable Yayo Gibsb MD Unavailable Unavailable Yayo Gibbs MD Unavailable Unavailable Yayo Gibbs MD Unavailable Unavailable Yayo Gibbs MD Unavailable Unavailable Yayo Gibbs MD Unavailable Unavailable Yayo Gibbs MD Unavailable Unavailable Yayo Gibbs MD Unavailable Unavailable Yayo Gibbs MD Unavailable Unavailable Yayo Gibbs MD Unavailable Unavailable Yayo Gibbs MD Unavailable Unavailable Yayo Gibbs MD Unavailable Unavailable Yayo Gibbs MD Unavailable Unavailable Yayo Gibbs MD Unavailable Unavailable Yayo Gibbs MD Unavailable Unavailable Yayo Gibbs MD Unavailable Unavailable Yayo Gibbs MD Unavailable Unavailable Yayo Gibbs MD Unavailable Unavailable Yayo Gibbs MD Unavailable Unavailable Yayo Gibbs MD Unavailable Unavailable Yayo Gibbs MD Unavailable Unavailable Yayo Gibbs MD Unavailable Unavailable Yayo Gibbs MD Unavailable Unavailable Yayo Gibbs MD Unavailable Unavailable Yayo Gibbs MD Unavailable Unavailable Yayo Gibbs MD Unavailable Unavailable Yayo Gibbs MD Unavailable Unavailable Yayo Gibbs MD Unavailable Unavailable Yayo Gibbs MD Unavailable Unavailable Yayo Gibbs MD Unavailable Unavailable Yayo Gibbs MD Unavailable Unavailable Yayo Gibbs MD Unavailable Unavailable Yayo Gibbs MD Unavailable Unavailable Yayo Gibbs MD Unavailable Unavailable Yayo Gibbs MD Unavailable Unavailable Yayo Gibbs MD Unavailable Unavailable Yayo Gibbs MD Unavailable Unavailable Yayo Gibbs MD Unavailable Unavailable Yayo Gibbs MD Unavailable Unavailable Yayo Gibbs MD Unavailable Unavailable Yayo Gibbs MD Unavailable Unavailable Yayo Gibbs MD Unavailable Unavailable Yayo Gibbs MD Unavailable Unavailable Yayo Gibbs MD Unavailable Unavailable Jailene Collado HEALTH CENTER MANAGER Unavailable Unavailable Drea Marcus MD Unavailable Unavailable Drea Marcus MD Unavailable Unavailable Drea Marcus MD Unavailable Unavailable Porcari, Torres MD Unavailable Unavailable Porcari, Torres MD Unavailable Unavailable Porcari, Torres MD Unavailable Unavailable Porcari, Torres MD Unavailable Unavailable Porcari, Torres MD Unavailable Unavailable Porcari, Torres MD Unavailable Unavailable Porcari, Torres MD Unavailable Unavailable Porcari, Torres MD Unavailable Unavailable Porcari, Torres MD Unavailable Unavailable Porcari, Torres MD Unavailable Unavailable Porcari, Torres MD Unavailable Unavailable Porcari, Torres MD Unavailable Unavailable Porcari, Torres MD Unavailable Unavailable Porcari, Torres MD Unavailable Unavailable Porcari, Torres MD Unavailable Unavailable Porcari, Torres MD Unavailable Unavailable Porcari, Torres MD Unavailable Unavailable Porcari, Torres MD Unavailable Unavailable Porcari, Torres MD Unavailable Unavailable Porcari, Torres MD Unavailable Unavailable Porcari, Torres MD Unavailable Unavailable Porcari, Torres MD Unavailable Unavailable Porcari, Torres MD Unavailable Unavailable Porcari, Torres MD Unavailable Unavailable Porcari, Torres MD Unavailable Unavailable Porcari, Torres MD Unavailable Unavailable Porcari, Torres MD Unavailable Unavailable Porcari, Torres MD Unavailable Unavailable Porcari, Torres MD Unavailable Unavailable UNKNOWN Unavailable Unavailable Collado, F Jailene HEALTH CENTER MANAGER-BC Unavailable Unavailable Collado, F Jailene HEALTH CENTER MANAGER-BC Unavailable Unavailable Collado, F Jailene HEALTH CENTER MANAGER-BC Unavailable Unavailable Collado, F Jailene HEALTH CENTER MANAGER-BC Unavailable Unavailable Collado, F Jailene HEALTH CENTER MANAGER-BC Unavailable Unavailable Collado, F Jailene HEALTH CENTER MANAGER-BC Unavailable Unavailable Collado, F Jailene HEALTH CENTER MANAGER-BC Unavailable Unavailable Collado, F Jailene HEALTH CENTER MANAGER-BC Unavailable Unavailable Collado, F Jailene HEALTH CENTER MANAGER-BC Unavailable Unavailable Collado, F Jailene HEALTH CENTER MANAGER-BC Unavailable Unavailable Collado, F Jailene HEALTH CENTER MANAGER-BC Unavailable Unavailable Collado, F Jailene HEALTH CENTER MANAGER-BC Unavailable Unavailable Collado, F Jailene HEALTH CENTER MANAGER-BC Unavailable Unavailable Collado, F Jailene HEALTH CENTER MANAGER-BC Unavailable Unavailable Collado, F Jailene HEALTH CENTER MANAGER-BC Unavailable Unavailable Collado, F Jailene HEALTH CENTER MANAGER-BC Unavailable Unavailable Collado, F Jailene HEALTH CENTER MANAGER-BC Unavailable Unavailable Collado, F Jailene HEALTH CENTER MANAGER-BC Unavailable Unavailable Collado, F Jailene HEALTH CENTER MANAGER-BC Unavailable Unavailable Collado, F Jailene HEALTH CENTER MANAGER-BC Unavailable Unavailable Collado, F Jailene HEALTH CENTER MANAGER-BC Unavailable Unavailable Mahamed Collado HEALTH CENTER MANAGER-BC Unavailable Unavailable Mahamed Collado HEALTH CENTER MANAGER-BC Unavailable Unavailable Re-disclosure Warning The records that you are about to access may contain information from federally-assisted alcohol or drug abuse programs. If such information is present, then the following federally mandated warning applies: This information has been disclosed to you from records protected by federal confidentiality rules (42 CFR part 2). The federal rules prohibit you from making any further disclosure of this information unless further disclosure is expressly permitted by the written consent of the person to whom it pertains or as otherwise permitted by 42 CFR part 2. A general authorization for the release of medical or other information is NOT sufficient for this purpose. The Federal rules restrict any use of the information to criminally investigate or prosecute any alcohol or drug abuse patient.The records that you are about to access may contain highly sensitive health information, the redisclosure of which is protected by Article 27-F of the [facility] Public Health law. If you continue you may have access to information: Regarding HIV / AIDS; Provided by facilities licensed or operated by the [facility] Office of Mental Health; or Provided by the [facility] Office for People With Developmental Disabilities. If such information is present, then the following [facility] mandated warning applies: This information has been disclosed to you from confidential records which are protected by state law. State law prohibits you from making any further disclosure of this information without the specific written consent of the person to whom it pertains, or as otherwise permitted by law. Any unauthorized further disclosure in violation of state law may result in a fine or mcfp sentence or both. A general authorization for the release of medical or other information is NOT sufficient authorization for further disc losure. Family History Family Member Name Family Member Gender Family Member Status Date o f Status Description Data Source(s) Unknown Unknown Problem [facility] ) Encounters Encounter Providers Location Date Indications Data Source(s ) Outpatient Attender: UNKNOWN CPSCAORT-LABEJN 11/01/2020 08:33:00 PM E DT [facility] Inpatient Attender: Torres Henley MDA ttender: GIO RUANO MDAdmitter: Torres Henley MD ED-[facility] 11/01/2020 07:03:00 PM EDT - 11/04/2020 01:55:00 PM EDT F10.20 [facility] F10.20 Patient discharged. Outpatient Attender: Torres Henley MD ED-LABPNP 10/2020 04:26:00 PM EDT - 11/01/2020 04:27:00 PM EDT DETOX [facility] DETOX Patient discharged. Alexx Gibbs MD: [address] [place] [address], Ph. Attender: Alexx Gibbs MD [facility] Medical 10/12/2020 12:00:00 AM EDT [facility] ([facility]) Alexx Gibbs MD: [address] [place] [address], Ph. Attender: Alexx Gibbs MD [facility] Medical 09/08/2020 12:00:00 AM EDT [facility] ([facility]) Alexx Gibbs MD: [address] [place] [address], Ph. Attender: Alexx Gibbs MD [facility] Medical 09/08/2020 12:00:00 AM EDT [facility] ([facility]) Alexx Gibbs MD: [address] [place] [address], Ph. Attender: Alexx Gibbs MD [facility] Medical 05/11/2020 12:00:00 AM EST [facility] ([facility]) Alexx Gibbs MD: [address] [place] [address], Ph. Attender: Alexx Gibbs MD [facility] Medical 05/11/2020 12:00:00 AM EST [facility] ([facility]) Alexx Gibbs MD: [address] [place] [address], Ph. Attender: Alexx Gibbs MD [facility] Medical 05/11/2020 12:00:00 AM EST [facility] ([facility]) Alexx Gibbs MD: [address] [place] [address], Ph. Attender: Alexx Gibbs MD AL - [facility] Medical 05/11/2020 12:00:00 AM EST [facility] ([facility]) Outpatient CPSCAORT-LABEJImani 04/10/2020 11:50:00 PM [facility] 03/05/2020 02:25:00 PM [facility] Inpatient Attender: GIO RUANO MDAd mitter: GIO RUANO MDConsultant: Drea Marcus MD ED-[facility] 03/01/2020 12:21:00 [facility] 03/08/2020 04:00:00 PM [facility]020 [facility] F1020 Patient discharged. Outpatient Attender: MICAELA HINOJOSA 01/26/2020 12:58:01 PM EDT [facility] Outpatient Attender: MICAELA HINOJOSA 01/26/2020 12:20:07 PM EDT [facility] Outpatient Attender: Jailene ELKINS 01/26/2020 12: 20:04 PM EDT [facility] Outpatient Attender: MICAELA HINOJOSA 01/26/2020 12:14:00 PM EDT [facility] Outpatient Attender: MICAELA HINOJOSA 01/26/2020 12:06:07 PM EDT [facility] Outpatient Attender: MICAELA HINOJOSA 01/10/2020 01:52:00 PM EDT [facility] Immunizations Vaccine Date Status Description Data Source(s) COVID-19 VACCINE July 09/08/2020 12:00:00 AM EDT completed [employer] Vaccine Series Complete: YESThis Data wa s Submitted to [facility]. COVID-19, mRNA, LNP-S, PF, 100 mcg/0.5 mL dose 09/06/2020 12 :00:00 AM EDT completed 09/06/2020 [facility] ([facility]) Medications Medication Brand Name Start Date Product Form Dose Route Admi nistrative Instructions Pharmacy Instructions Status Indications Reaction Description Data Source(s) Cyclobenzaprine hydrochloride 5 MG Oral Tablet cyclobe nzaprine 5 mg tablet cyclobenzaprine 5 mg tablet 10/12/2020 12:00:00 AM EDT completed cyclobenzaprine hydrochloride 5 MG Oral Tablet [facility] ([facility]) paroxetine 10 mg tablet [id number] 05/11/2020 12:00:00 AM EST completed paroxetine hydrochloride 10 MG Oral Tablet [facility] ([facility]) paroxetine 10 mg tablet [id number] 05/11/2020 12:00:00 AM EST completed paroxetine hydrochloride 10 MG Oral Tablet [facility] ([facility]) paroxetine 10 mg tablet [id number] 05/11/2020 12:00:00 AM EST completed paroxetine hydrochloride 10 MG Oral Tablet [facility] ([facility]) paroxetine 10 mg tablet [id number] 05/11/2020 12:00:00 AM EST completed paroxetine hydrochloride 10 MG Oral Tablet [facility] ([facility]) Acamprosate calcium 333 MG Delayed Relea se Oral Tablet acamprosate 333 mg tablet,delayed release acamprosate 333 mg tablet,delayed release completed acamprosate calcium 333 MG Delay ed Release Oral Tablet [facility] ([facility]) Trazodone Hydrochloride 50 MG Oral Tablet trazodone 50 mg tablet trazodone 50 mg tablet completed trazodone hydro chloride 50 MG Oral Tablet [facility] ([facility]) Trazodone Hydrochloride 100 MG Oral Tablet trazodone 1 00 mg tablet trazodone 100 mg tablet completed trazodone hy drochloride 100 MG Oral Tablet [facility] ([facility]) Carbamazepine 200 MG Oral Tablet carbamazepine 200 mg tablet carbamazepine 200 mg tablet completed carbamazepin e 200 MG Oral Tablet [facility] ([facility]) Naltrexone hydrochloride 50 MG Oral Tablet naltrexone 50 mg tablet naltrexone 50 mg tablet completed naltrexone h ydrochloride 50 MG Oral Tablet [facility] ([facility]) Trazodone Hydrochloride 100 MG Oral Tablet trazodone 1 00 mg tablet trazodone 100 mg tablet completed trazodone hy drochloride 100 MG Oral Tablet [facility] ([facility]) Trazodone Hydrochloride 50 MG Oral Tablet trazodone 50 mg tablet trazodone 50 mg tablet completed trazodone hydro chloride 50 MG Oral Tablet [facility] ([facility]) Nicotine 4 MG Oral Lozenge nicotine (polacrilex) 4 mg buccal lozenge nicotine (polacrilex) 4 mg buccal lozenge compl eted nicotine 4 MG Oral Lozenge [facility] ([facility]) Trazodone Hydrochloride 50 MG Oral Tablet trazodone 50 mg tablet trazodone 50 mg tablet completed trazodone hydro chloride 50 MG Oral Tablet [facility] ([facility]) Naltrexone 112 MG/ML Injectable Suspensi on [Vivitrol] Vivitrol 380 mg intramuscular suspension,extended release Vivitrol 380 mg intramuscular suspension,extended release completed naltrexone 380 MG Injection [Vivitrol] [facility] ([facility]) Trazodone Hydrochloride 50 MG Oral Tablet trazodone 50 mg tablet trazodone 50 mg tablet completed trazodone hydr ochloride 50 MG Oral Tablet [facility] ([facility]) Trazodone Hydrochloride 100 MG Oral Tablet trazodone 1 00 mg tablet trazodone 100 mg tablet completed trazodone h ydrochloride 100 MG Oral Tablet [facility] ([facility]) Folic Acid 1 MG Oral Tablet folic acid 1 mg tablet folic acid 1 mg ta blet completed folic acid 1 MG Oral Tablet [facility] ([facility]) Trazodone Hydrochloride 100 MG Oral Tablet trazodone 1 00 mg tablet trazodone 100 mg tablet completed trazodone h ydrochloride 100 MG Oral Tablet [facility] ([facility]) Insurance Providers Payer name Policy type / Coverage type Policy ID Covered constitution party ID Covered constitution party's relationship to tsai Policy Tsai Plan Information [facility] COMMUNITY PLAN [facility] [id number] SP [id number] [facility] COMMUNITY PLAN [facility] [id number] SP [id number] [facility] COMMUNITY PLAN [facility] [id number] SP [id number] Managed Care - Community Plan [facility] P [id number] S [id number] Medicaid S [id number] Managed Care - Community Plan [facility] P [id number] S [id number] Medicaid S [id number] S [id number] [facility] COMMUNITY PL [id number] S [id number] [facility] PL [id number] S [id number] [facility] Community Plan P [id number] S [id number] [facility] PL [id number] Unknown [id number] Medicaid S [id number] S [id number] Managed Care [facility] Community Plan P [id number] S [id number] [employer] COMMUNITY PLAN MCDHMO [id number] SP [id number] [facility] PL [id number] Unemploye d [id number] [employer] [id number] SP [id number] [facility] [id number] SP [id number] [facility]) O [id number] S [id number] Self Pay P UNAVAILABLE S UNAVAILA BLE [facility] PL [id number] S [id number] [facility] Community Plan P [id number] S [id number] Managed Care - Community Plan [facility] P [id number] S [id number] [facility]) O [id number] S [id number] [facility] COMMUNITY [facility] [id number] SP [id number] [facility] Health Maintenance Organization (HMO) [id number] Self SELF PAY UNAVAILABLE SP UNAVAILA BLE Problems, Conditions, and Diagnoses Code Display Name Description Problem Type Effective Dates Data Source(s) Y90.8 Blood alcohol level of 240 mg/100 ml or more BLOOD ALCOHOL LEVEL OF 240 MG/100 ML OR MORE Diagnosis 11/01/2020 07:03:00 PM [facility] spital F12.10 Cannabis abuse, uncomplicated CANNABIS ABUSE, UNCOMPLI CATED Diagnosis 11/01/2020 07:03:00 PM Located within [facility] G47.00 Insomnia, unspecified INSOMNIA, UNSPECIFIED Diagnosis 11/01/2020 07:03:00 PM Located within [facility] F32.9 Major depressive disorder, single episod e, unspecified MAJOR DEPRESSIVE DISORDER, SINGLE EPISODE, UNSPECIFIED Diagnosis 11/01/2020 07:03:00 PM Located within [facility] 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 THROMBOCYTOPENIA Diagnosis 11/01/2020 07:03:00 PM Located within [facility] J30.2 Other seasonal allergic rhinitis OTHER SEASONAL ALLERGIC RHINITIS Diagnosis 11/01/2020 07:03:00 PM T [facility] F17.210 Nicotine dependence, cigarettes, uncompl icated NICOTINE DEPENDENCE, CIGARETTES, UNCOMPLICATED Diagnosis 11/01/2020 07:03:00 PM EDT [facility] F10.230 Alcohol dependence with withdrawal, unco mplicated ALCOHOL DEPENDENCE WITH WITHDRAWAL, UNCOMPLICATED Diagnosis 11/01/2020 07:03:00 PM EDT [facility] F17.200 Nicotine dependence, unspecified, uncomp licated NICOTINE DEPENDENCE, UNSPECIFIED, UNCOMPLICATED Diagnosis 03/01/2020 12:21:00 PM [facility] G40.509 Epileptic seizures related t o external causes, not intractable, without status epilepticus EPILEPTIC SEIZ REL TO EXTRN CAUSES, NOT NTRCT, W/O STA T EPI Diagnosis 03/01/2020 12:21:00 PM [facility] J30.9 Allergic rhinitis, unspecified ALLERGIC RHINITIS, UNSP ECIFIED Diagnosis 03/01/2020 12:21:00 PM [facility] F41.9 Anxiety disorder, unspecified ANXIETY DISORDER, UNSPEC IFIED Diagnosis 03/01/2020 12:21:00 PM [facility] F10.232 Alcohol dependence with withdrawal with perceptual disturbance ALCOHOL DEPENDENCE W WITHDRAWAL WITH PERCEPTUAL DISTURBANCE Diagnosis 12:21:00 PM [facility] [id number] Epilepsy Epilepsy Problem 05/11/2020 12:00:00 AM PERCY YARBROUGH ([facility]) [id number] 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 Problem 05/11/2020 12:00:00 AM LOURDES YARBROUGH ([facility]) [id number] Insomnia Insomnia Problem 05/11/2020 12:00:00 AM PERCY YARBROUGH ([facility]) [id number] Epilepsy Epilepsy Problem 05/11/2020 12:00:00 AM PERCY YARBROUGH ([facility]) [id number] 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 Problem 05/11/2020 12:00:00 AM LOURDES YARBROUGH ([facility]) [id number] Insomnia Insomnia Problem 05/11/2020 12:00:00 AM PERCY YARBROUGH ([facility]) [id number] Epilepsy Epilepsy Problem 05/11/2020 12:00:00 AM PERCY YARBROUGH ([facility]) [id number] 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 Problem 05/11/2020 12:00:00 AM LOURDES YARBROUGH ([facility]) [id number] Insomnia Insomnia Problem 05/11/2020 12:00:00 AM PERCY YARBROUGH ([facility]) [id number] Epilepsy Epilepsy Problem 05/11/2020 12:00:00 AM PERCY YARBROUGH ([facility]) [id number] 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 Problem 05/11/2020 12:00:00 AM LOURDES YARBROUGH ([facility]) [id number] Insomnia Insomnia Problem 05/11/2020 12:00:00 AM PERCY YARBROUGH ([facility]) V85.1 BMI 23.0-23.9 BMI 23.0-23.9 01/26/2020 12:19:11 PM EDT [facility] [id number] Body measurement finding Body Measurement Finding Prob marc 01/26/2020 12:00:00 AM EDT [facility] ([facility]) [id number] Body measurement finding Body Measurement Finding Prob marc 01/26/2020 12:00:00 AM EDT [facility] ([facility]) [id number] 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 Status Epilepticus Due to Refractory Epilepsy Problem 09/04/2017 12:00:00 AM EDT - 05/11/2020 12:00:00 AM EST [facility] ([facility]) [id number] 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 Status Epilepticus Due to Refractory Epilepsy Problem 09/04/2017 12:00:00 AM EDT - 05/11/2020 12:00:00 AM EST [facility] ([facility]) [id number] 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 Status Epilepticus Due to Refractory Epilepsy Problem 09/04/2017 12:00:00 AM EDT - 05/11/2020 12:00:00 AM EST [facility] ([facility]) [id number] 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 Status Epilepticus Due to Refractory Epilepsy Problem 09/04/2017 12:00:00 AM EDT - 05/11/2020 12:00:00 AM EST ILNNEA ([facility]) Surgeries/Procedures Procedure Description Date Indications Data Source(s) Detoxification Services for Substance Abuse Treatment DETOXIFICATION SERVICES FOR SUBSTANCE ABUSE TREATMENT 11/01/2020 12:00:00 AM EDT [facility] INDIV OFFICE CASHIER FOR SUBSTANCE ABUSE TREATMENT, CONTINUING CARE 03/03/2020 12:00:00 AM [facility] Results ID Date Data Source [id number] 01/10/2021 12:00:00 AM EDT [facility] Name Value Range Interpretation Code Description Data Elizabeth rce(s) Supporting Document(s) SARS-CoV2 Rapid Antigen Negative [facility] [facility] This lab was ordered by [facility] and r eported by [facility]. ID Date Data Source [id number] 11/04/2020 02:34:00 AM EDT [facility] Name Value Range Interpretation Code Description Data Elizabeth rce(s) Supporting Document(s) Hepatitis A Ab,IgG result Normal (applies to no n-numeric results) [facility] Result indicates immunity to hepatitis A infection from either vaccination or past exposure to hepatitis A. False-positive results may be observed in patients with CMV antibodies or heterophilic antibodies. REFERENCE VALUE Unvaccinated: Negative Vaccinated: Positive Test Performed by: [facility] [place] [address] Corporate Law Specialist: Nadeem Mancia M.D. Ph.D.; CLIA# [id number] ID Date Data Source [id number] 11/03/2020 06:58:00 PM EDT [facility] Name Value Range Interpretation Code Description Data Elizabeth rce(s) Supporting Document(s) Hepatitis A Ab,IgG result Normal (applies to no n-numeric results) [facility] Result indicates immunity to hepatitis A infection from either vaccination or past exposure to hepatitis A. False-positive results may be observed in patients with CMV antibodies or heterophilic antibodies. REFERENCE VALUE Unvaccinated: Negative Vaccinated: Positive Test Performed by: [facility] [address] [place] [address] Corporate Law Specialist: Nadeem Mancia M.D. Ph.D.; IA# [id number] ID Date Data Source [id number] 11/01/2020 08:27:00 PM EDT [facility] Name Value Range Interpretation Code Description Data Elizabeth rce(s) Supporting Document(s) Sodium 140 mmol/L 136-145 Normal (applies to non-numeric resul ts) [facility] Potassium 3.5-5.1 Normal (applies to non-numeric resul ts) [facility] Chloride 97 mmol/L 98-107 Below low normal [facility] spital Carbon Dioxide CO2 21-32 Normal (applies to non-numer ic results) [facility] Anion Gap 5.0-16.0 Normal (applies to non-numeric resul ts) [facility] BUN 9 mg/dL 7-18 Normal (applies to non-numeric results) [facility] Creatinine,Serum 0.8-1.5 Normal (applies to non-numeric results) [facility] GFR >60 Normal (applies to non-numeric results) [facility] Glucose Level 142 mg/dL 60-99 Above high normal [facility] Reference range is only applicable when patient is fasting Note the following drug interference: Sulfasalazine Sulfapyridine Can see falsely depressed Can see falsely elevated result with up to 17% results with up to 11% decrease in measurement increase in measurement Recommend patients be collected for this test prior to administration of either drug. Calcium 8.5-10.1 Below low normal [facility] Bilirubin,Total 0.1-1.9 Normal (applies to non-numeric results) [facility] SGOT(AST) 64 U/L 15-37 Above high normal [facility] Note the following drug interference: Sulfasalazine Sulfapyridine Can see falsely depressed Can see falsely elevated result with up to 10% results with up to 10% decrease in measurement increase in measurement Recommend patients be collected for this test prior to administration of either drug. SGPT(ALT) 43 U/L 12-78 Normal (applies to non-numeric resul ts) [facility] Note the following drug interference: Sulfasalazine Sulfapyridine Can see falsely depressed Can see falsely elevated result with up to 29% results with up to 10% decrease in measurement increase in measurement Recommend patients be collected for this test prior to administration of either drug. Alkaline Phosphatase 58 U/L 38-126 Normal (applies to non-num martin results) [facility] can increase Alkaline Phosp le vels up to 2 times the normal adult value. Normal values for children and adolescents are 2 to 3 times the normal adult value. Total Protein 6.0-8.2 Above high normal [facility] Albumin Level 3.4-5.0 Normal (applies to non-numeric re sults) [facility] ID Date Data Source [id number] 11/01/2020 08:27:00 PM EDT [facility] Name Value Range Interpretation Code Description Data Elizabeth rce(s) Supporting Document(s) Bilirubin,Direct 0.05-0.20 Normal (applies to non-numeric results) [facility] ID Date Data Source [id number] 11/01/2020 08:27:00 PM EDT [facility] Value Range Interpretation Code Description Data Elizabeth rce(s) Supporting Document(s) Phosphorus 2.5-4.9 Normal (applies to non-numeric resul ts) [facility] ID Date Data Source [id number] 11/01/2020 08:27:00 PM EDT [facility] Value Range Interpretation Code Description Data Elizabeth rce(s) Supporting Document(s) Magnesium 1.8-2.4 Above high normal [facility] ID Date Data Source [id number] [facility] Interpret[facility] Code Description Data Elizabeth rce(s) Supporting Document(s) Thyroid Stimulate Hormone TSH 0.358-3.74 No rmal (applies to non-numeric results) [facility] ID Date Data Source [id number] 11/02/2020 03:54:00 AM EDT [facility] Value Range Interpretation Code Description Data Elizabeth rce(s) Supporting Document(s) CPK result 131 U/L 39-308 Normal (applies to non-numeric resul ts) [facility] Test Performed By: [facility] [address] [place] [address] Director: Agustin Lawrence MD ID Date Data Source [id number] 11/02/2020 03:54:00 AM EDT [facility] Value Range Interpretation Code Description Data Elizabeth rce(s) Supporting Document(s) Hepatitis C Virus Ab result Nonreactive Norm al (applies to non-numeric results) [facility] Test Performed By: [facility] [address] [place] [address] Director: Agustin Lawrence MD ID Date Data Source [id number] 11/02/2020 03:54:00 AM EDT [facility] Value Range Interpretation Code Description Data Elizabeth rce(s) Supporting Document(s) Hep Bs Ag result T-Test Nonreactive Normal (applies to non -numeric results) [facility] Test Performed By: [facility] [address] [place] [address] Director: Agustin Lawrence MD ID Date Data Source [id number] 11/02/2020 03:54:00 AM EDT [facility] Value Range Interpretation Code Description Data Elizabeth rce(s) Supporting Document(s) Syphilis Serology result Nonreactive Normal (applies to non-numeric results) [facility] Test Performed By: [facility] [address] [place] [address] Director: Agustin Lawrence MD ID Date Data Source [id number] 11/01/2020 08:37:00 PM EDT [facility] Name Value Range Interpretation Code Description Data Elizabeth rce(s) Supporting Document(s) Ethanol Less than 10.0 Above high normal [facility] ID Date Data Source [id number] 11/01/2020 08:02:00 PM EDT [facility] Name Value Range Interpretation Code Description Data Elizabeth rce(s) Supporting Document(s) White Blood Count 3.5-10.5 Normal (applies to non-numeri c results) [facility] Red Blood Count 4.30-5.70 Below low normal [facility] Hemoglobin 13.5-17.5 Normal (applies to non-numeric resul ts) [facility] Hematocrit 38.8-50.0 Normal (applies to non-numeric resul ts) [facility] Mean Corpuscular Volume 81.2-95.1 Above high normal [facility] Mean Corpuscular Hgb 25.6-32.2 Above high normal [facility] Mean Corpuscular Hgb Conc 32.0-36.0 Normal (applies to no n-numeric results) [facility] Red Cell Distribution Width 11.8-15.6 Normal (appli es to non-numeric results) [facility] Platelet Count 108 x10 3/uL 150-450 Below low normal [facility] Mean Platelet Volume 9.4-12.4 Normal (applies to non-num martin results) [facility] Neutrophils% (Auto) 31.0-71.0 Normal (applies to non-nume conchita results) [facility] Lymphocytes% (Auto) 20.0-55.0 Normal (applies to non-nume conchita results) [facility] Monocytes% (Auto) 4.0-12.0 Normal (applies to non-numeri c results) [facility] Eosinophils% (Auto) 1.0-8.0 Normal (applies to non-nume conchita results) [facility] Basophils% (Auto) 0.0-2.0 Normal (applies to non-numeri c results) [facility] Immature Granulocytes% (Auto) 0.0-2.0 Normal (dmitry lies to non-numeric results) [facility] Neutrophils# (Auto) 1.50-6.20 Below low normal [facility] Lymphocytes# (Auto) 1.20-4.00 Normal (applies to non-nume conchita results) [facility] Monocytes# (Auto) 0.00-0.90 Normal (applies to non-numeri c results) [facility] Eosinophils# (Auto) 0.00-0.50 Normal (applies to non-nume conchita results) [facility] Basophils# (Auto) 0.00-0.20 Normal (applies to non-numeri c results) [facility] Immature Granulocytes# (Auto) 0.00-7.00 No rmal (applies to non-numeric results) [facility] ID Date Data Source [id number] 11/04/2020 02:50:00 AM EDT [facility] Name Value Range Interpretation Code Description Data Elizabeth rce(s) Supporting Document(s) Chlamydia,Urine result Negative Normal (applies to non-n umeric results) [facility] Test Performed By: [facility] [address] [place] [address] Director: Agustin Lawrence MD . GC Urine result Negative Normal (applies to non-numeric results) [facility] Test Performed By: [place] [address] Director: Agustin Lawrence MD . Methodology: Second generation nucleic acid amplification. ID Date Data Source [id number] 11/03/2020 04:39:00 PM EDT [facility] Name Value Range Interpretation Code Description Data Elizabeth rce(s) Supporting Document(s) Chlamydia,Urine Negative Normal (applies to non-numeric results) [facility] Test Performed By: [facility] [address] [place] [address] Director: Agustin Lawrence MD . GC Urine Negative Normal (applies to non-numeric resul ts) [facility] Test Performed By: [facility] [address] [place] [address] Director: Agustin Lawrence MD . Methodology: Second generation nucleic acid amplification. ID Date Data Source [id number] 11/01/2020 08:39:00 PM EDT [facility] Collected By: Nurse's Aide Initials: dn Name Value Range Interpretation Code Description Data Elizabeth rce(s) Supporting Document(s) Color,Urine Colorl-Dk Y Normal (applies to non-numeric res ults) [facility] Clarity,Urine Clear Normal (applies to non-numeric re sults) [facility] Specific Cornish,Urine 1.005-1.030 Normal (applies to non- numeric results) [facility] pH,Urine 5.0-8.0 Normal (applies to non-numeric resul ts) [facility] Protein,Urine Negative Normal (applies to non-numeric re sults) [facility] Glucose,Urine Negative Normal (applies to non-numeric re sults) [facility] Ketones,Urine Negative Normal (applies to non-numeric re sults) [facility] Blood,Urine Negative Normal (applies to non-numeric resu lts) [facility] Bilirubin,Urine Negative Normal (applies to non-numeric results) [facility] Urobilinogen,Urine 0.2-1.0 Normal (applies to non-numer ic results) [facility] Leukocyte Esterase,Urine Negative Normal (applies to non -numeric results) [facility] Nitrite,Urine Negative Normal (applies to non-numeric re sults) [facility] ID Date Data Source [id number] 11/01/2020 08:33:00 PM EDT [facility] Name Value Range Interpretation Code Description Data Elizabeth rce(s) Supporting Document(s) UDS Benzodiazepines Screen Negative Normal (applies to n on-numeric results) [facility] UDS Cocaine Screen Negative Normal (applies to non-numer ic results) [facility] UDS Ampetamine Screen Negative Normal (applies to non-nu meric results) [facility] UDS Cannabinoids Screen Negative Normal (applies to non- numeric results) [facility] UDS Opiates Screen Negative Normal (applies to non-numer ic results) [facility] UDS Barbiturates Screen Negative Normal (applies to non- numeric results) [facility] Threshold Levels Benzodiazepine 200 ng/mL Cocaine 300 ng/mL Amphetamines 1000 ng/mL Cannabinoids (THC) 50 ng/mL Opiates 300 ng/mL Barbiturates 200 ng/mL All positive findings are presumptive and unconfirmed. Confirmation of positive results are performed only at request of provider. Unconfirmed results must not be used for non-medical purposes (i.e. preemployment and legal purposes) ID Date Data Source [id number] 11/02/2020 01:04:00 AM EDT [facility] Value Range Interpretation Code Description Data Elizabeth rce(s) Supporting Document(s) Hep C Ab-T Test Nonreactive Normal (applies to non-numeric results) [facility] Test Performed By: [place] [address] Director: Agustin Lawrence MD ID Date Data Source [id number] 11/02/2020 01:04:00 AM EDT [facility] Value Range Interpretation Code Description Data Elizabeth rce(s) Supporting Document(s) Hep Bs Ag Result T-Test Nonreactive Normal (applies to non -numeric results) [facility] Test Performed By: [place] [address] Director: Agustin Lawrence MD ID Date Data Source [id number] 11/02/2020 01:04:00 AM EDT [facility] Value Range Interpretation Code Description Data Elizabeth rce(s) Supporting Document(s) Syphilis Serology Nonreactive Normal (applies to non-numer ic results) [facility] Test Performed By: [facility] [address] [place] [address] Director: Agustin Lawrence MD ID Date Data Source [id number] 11/01/2020 10:55:00 PM EDT [facility] Value Range Interpretation Code Description Data Elizabeth rce(s) Supporting Document(s) CPK 131 U/L 39-308 Normal (applies to non-numeric resul ts) [facility] Test Performed By: [facility] [address] [place] [address] Director: Agustin Lawrence MD ID Date Data Source [id number] 11/01/2020 04:15:00 PM EDT [facility] Name Value Range Interpretation Code Description Data Elizabeth rce(s) Supporting Document(s) Respiratory specimen severe acute respir atory syndrome coronavirus 2 (SARS-CoV-2) RNA Negative (qualifier value) [facility] This lab was ordered by [facility] and reported by . ID Date Data Source [id number] 11/01/2020 04:47:00 PM EDT [facility] Name Value Range Interpretation Code Description Data Elizabeth rce(s) Supporting Document(s) SARS-CoV-2 RNA Negative Normal (applies to non-numeric r esults) [facility] Negative results should be treated as pr esumptive and, if inconsistent with clinical signs and symptoms or necessary for patient management, should be tested with different authorized or cleared molecular tests. Negative results do not preclude SARS-CoV-2 infection and should not be used as the sole basis for patient management decisions. Negative results should be considered in the context of a patient???s recent exposures, history and the presence of clinical signs and symptoms consistent with COVID-19. This test has not been FDA cleared or approved; this test has been authorized by FDA under an Emergency Use Authorization for use by laboratories certified under the Clinical Laboratory Improvement Amendments of 1988 (CLIA), 42 U.S.C. ???263a, to perform moderate complexity/high complexity tests and at the Point of Care (POC), i.e., in patient care settings operating under a CLIA Certificate of Waiver, Certificate of Compliance, or Certificate of Accreditation. Factsheets for healthcare providers: https://www.fda.gov/media/022731/download Factsheets for patients: https://www.fda.gov/media/224563/download The ID NOW Instrument is a rapid molecular in vitro diagnostic test utilizing an isothermal nucleic acid amplification technology intended for the qualitative detection of nucleic acid from the SARS-CoV-2 viral RNA. THIS IS A STATE REPORTABLE COMMUNICABLE DISEASE. Manual entry verified by Lori Morrison 11/01/20 1644 ID Date Data Source [id number] 10/05/2020 04:45:00 PM EDT [facility] ([facility]) Name Value Range Interpretation Code Description Data Elizabeth rce(s) Supporting Document(s) barbiturates urine negative negative Barbiturates Urin e [facility] ([facility]) amphetamines level urine negative negative Amphetamine s Level Urine [facility] ([facility]) benzodiazepines urine negative negative Benzodiazepine s Urine [facility] ([facility]) cocaine metabolite urine negative negative Cocaine Met abolite Urine [facility] ([facility]) methadone urine negative negative Methadone Urine AT[facility] ([facility]) cannabinoids urine negative negative Cannabinoids Urin e [facility] ([facility]) opiates urine negative negative Opiates Urine [facility] ( [facility]) phencyclidine urine negative negative Phencyclidine Ur ine [facility] ([facility]) ID Date Data Source [id number] 10/05/2020 04:11:00 PM EDT [facility] ([facility]) Name Value Range Interpretation Code Description Data Elizabeth rce(s) Supporting Document(s) thyroid stimulating hormone 3.120 uIU/mL 0.358-3.740 Thyroid Stimulating Hormone [facility] ([facility]) ID Date Data Source [id number] 10/05/2020 04:11:00 PM EDT [facility] ([facility]) Name Value Range Interpretation Code Description Data Elizabeth rce(s) Supporting Document(s) acetaminophen level < 2.0 10.0-30.0 Below low normal Acetaminop hen Level [facility] ([facility]) ID Date Data Source [id number] 10/05/2020 04:11:00 PM EDT [facility] ([facility]) Name Value Range Interpretation Code Description Data Elizabeth rce(s) Supporting Document(s) salicylate level 7.9 mg/dL 5.0-30.0 Salicylate Level AT [facility] ([facility]) ID Date Data Source [id number] 10/05/2020 04:11:00 PM EDT [facility] ([facility]) Name Value Range Interpretation Code Description Data Elizabeth rce(s) Supporting Document(s) ethyl alcohol (ethanol) 0.497 % 0.000-0.010 Above high normal Ethyl Alcohol (Ethanol) [facility] ([facility]) ID Date Data Source [id number] 10/05/2020 04:11:00 PM EDT [facility] ([facility]) Name Value Range Interpretation Code Description Data Elizabeth rce(s) Supporting Document(s) glucose, fasting 108 mg/dL 70-100 Above high normal Glucose, Fas ting [facility] ([facility]) creatinine for GFR 0.65 mg/dL 0.70-1.30 Below low normal Creatinine for GFR [facility] ([facility]) blood urea nitrogen 6 mg/dL 7-18 Below low normal Blood Urea Nitrogen [facility] ([facility]) potassium serum 3.8 mEq/L 3.5-5.1 Potassium Serum ATHE NA ([facility]) sodium level 135 mEq/L 136-145 Below low normal Sodium Level [facility] NA ([facility]) glomerular filtration rate > 60.0 >56 Glomerula r Filtration Rate [facility] ([facility]) carbon dioxide level 26 mEq/L 21-32 Carbon Dioxide Level [facility] ([facility]) chloride level 98 mEq/L 98-107 Chloride Level [facility] ([facility]) anion gap 11 mEq/L 8-16 Anion Gap [facility] ([facility]) calcium level 8.6 mg/dL 8.5-10.1 Calcium Level [facility] ( [facility]) ID Date Data Source [id number] 10/05/2020 04:11:00 PM EDT [facility] ([facility]) Name Value Range Interpretation Code Description Data Elizabeth rce(s) Supporting Document(s) AST/SGOT 36 U/L 7-37 AST/SGOT [facility] ([facility]) ALT/SGPT 27 U/L 12-78 ALT/SGPT [facility] ([facility]) bilirubin,direct 0.2 mg/dL 0.0-0.2 Bilirubin,direct AT [facility] ([facility]) alkaline phosphatase 56 U/L 45-117 Alkaline Phosph atase [facility] ([facility]) bilirubin,total 0.4 mg/dL 0.2-1.0 Bilirubin,total ATHE NA ([facility]) albumin/globulin ratio Albumin/globu maik Ratio [facility] ([facility]) albumin 4.1 gm/dL 3.2-5.2 Albumin [facility] ([facility]) total protein 8.3 gm/dL 6.4-8.2 Above high normal Total Protein A THEN ([facility]) ID Date Data Source [id number] 10/05/2020 04:11:00 PM EDT [facility] ([facility]) Name Value Range Interpretation Code Description Data Elizabeth rce(s) Supporting Document(s) white blood count 7.2 10 4.0-10.0 White Blood Count [facility] ([facility]) red blood count 4.21 10 4.30-6.10 Below low normal Red Blood Coun t [facility] ([facility]) hemoglobin 13.9 g/dL 13.5-17.5 Hemoglobin [facility] ([facility]) hematocrit 41.0 % 42.0-52.0 Below low normal Hematocrit [facility] ( [facility]) mean corpuscular volume 97.4 fL 80.0-96.0 Above high normal Mean Corpuscular Volume [facility] ([facility]) mean corpuscular hemoglobin 33.0 pg 27.0-33.0 Mean Cor puscular Hemoglobin [facility] ([facility]) mean corpuscular HGB conc 33.9 g/dL 32.0-36.5 Mean Corpu scular HGB Conc [facility] ([facility]) red cell distribution width 12.7 % 11.5-14.5 Red Cell Distribution Width MERRIMAC ([facility]) nucleated red blood cell % 0.0 % 0-0 Nucleated Red Blood Cell % MERRIMAC ([facility]) platelet count, automated 179 10 150-450 Platelet C ount, Automated LINNEA ([facility]) ID Date Data Source [id number] 10/05/2020 04:05:00 PM EDT [facility] Name Value Range Interpretation Code Description Data Elizabeth rce(s) Supporting Document(s) SARS coronavirus 2 RNA [Presence] in Res piratory specimen by MADDY with probe detection NEGATIVE [facility] This lab was ordered by [facility] a nd reported by [facility]. ID Date Data Source [id number] 10/05/2020 04:05:00 PM EDT MERRIMAC ([facility]) Name Value Range Interpretation Code Description Data Elizabeth rce(s) Supporting Document(s) influenza B amplification negative negative Influenza B Amplification MERRIMAC ([facility]) influenza A amplification negative negative Influenza a Amplification MERRIMAC ([facility]) RSV amplification negative negative RSV Amplification MERRIMAC ([facility]) sars covid-19 amplification negative negative Sars Cov id-19 Amplification MERRIMAC ([facility]) ID Date Data Source [id number] 09/08/2020 10:42:00 AM EDT [facility]) Name Value Range Interpretation Code Description Data Elizabeth rce(s) Supporting Document(s) Urea nitrogen [Mass/volume] in Serum or Plasma 5 mg/dL 7-25 Below low normal Urea Nitrogen (BUN) LINNEA ([facility]) Glucose [Mass/volume] in Serum or Plasma 84 mg/dL 65-99 Glucose MERRIMAC ([facility]) Creatinine [Mass/volume] in Serum or Plasma 0.68 mg/dL 0.70 -1.33 Below low normal Creatinine LINNEA ([facility]) Glomerular filtration rate/1.73 sq M.pre dicted among blacks [Volume Rate/Area] in Serum, Plasma or Blood by Creatinine-based formula (CKD-EPI) 124 mL/min/1.73m2 > or = 60 eGFR LINNEA ([facility]) Glomerular filtration rate/1.73 sq M.pre dicted among non-blacks [Volume Rate/Area] in Serum, Plasma or Blood by Creatinine-based formula (CKD-EPI) 107 mL/min/1.73m2 > or = 60 eGFR Non-afr. [place] Citizen LINNEA ([facility]) Urea nitrogen/Creatinine [Mass Ratio] in Serum or Plasma 7 (calc) 6-22 BUN/creatinine Ratio LINNEA ([facility]) Chloride [Moles/volume] in Serum or Plasma 102 mmol/L 98-110 Chloride LINNEA ([facility]) Sodium [Moles/volume] in Serum or Plasma 141 mmol/L 135-146 Sodium LINNEA ([facility]) Potassium [Moles/volume] in Serum or Plasma 4.6 mmol/L 3.5-5.3 Potassium LINNEA ([facility]) Carbon dioxide, total [Moles/volume] in Serum or Plasma 20 mmol/L 20-32 Carbon Dioxide LINNEA ([facility]) Calcium [Mass/volume] in Serum or Plasma 8.6 mg/dL 8.6-10.3 Calcium LINNEA ([facility]) Protein [Mass/volume] in Serum or Plasma 7.8 g/dL 6.1-8.1 Protein, [facility] Albumin/Globulin [Mass Ratio] in Serum or Plasma 1.3 (calc) 1.0-2 .5 Albumin/globulin Ratio LINNEA ([facility]) Albumin [Mass/volume] in Serum or Plasma 4.4 g/dL 3.6-5.1 Albumin LINNEA ([facility]) Globulin [Mass/volume] in Serum by calculation 3.4 g/dL_(calc) 1.9- 3.7 Globulin LINNEA ([facility]) Alkaline phosphatase [Enzymatic activity/volume] in Serum or Plasma 55 U/L 35-144 Alkaline Phosphatase LINNEA ([facility]) Aspartate aminotransferase [Enzymatic activity/volume] in Serum or Plasma 50 U/L 10-35 Above high normal Ast LINNEA ([facility]) Bilirubin.total [Mass/volume] in Serum or Plasma 0.3 mg/dL 0.2-1 .2 Bilirubin, Total LINNEA ([facility]) Alanine aminotransferase [Enzymatic activity/volume] in Seru m or Plasma 36 U/L 9-46 Alt LINNEA ([facility]) ID Date Data Source [id number] 09/08/2020 10:42:00 AM EDT MERRIMAC ([facility]) Name Value Range Interpretation Code Description Data Elizabeth rce(s) Supporting Document(s) Cholesterol [Mass/volume] in Serum or Plasma 251 mg/dL <200 Above high normal Cholesterol, Total LINNEA ([facility]) Cholesterol in HDL [Mass/volume] in Serum or Plasma 116 mg/dL > or = 40 HDL Cholesterol MERRIMAC ([facility]) Cholesterol.total/Cholesterol in HDL [Mass Ratio] in Serum o r Plasma 2.2 calc <5.0 Chol/hdlc Ratio LINNEA ([facility]) Triglyceride [Mass/volume] in Serum or Plasma 65 mg/dL <150 Triglycerides LINNEA ([facility]) Cholesterol non HDL [Mass/volume] in Serum or Plasma 135 mg/dL_( calc) <130 Above high normal Non HDL Cholesterol LINNEA ([facility]) Cholesterol in LDL [Mass/volume] in Serum or Plasma by calculation 119 mg/dL_(calc) <100 Above high normal LDL-cholesterol LINNEA ([facility]) Lipoprotein.alpha 3 [Moles/volume] in Serum 170 nmol/L <215 LDL Medium LINNEA ([facility]) Lipoprotein.beta.subparticle [Moles/volume] in Serum or Plas ma 1138 nmol/L <1138 Above high normal LDL Particle Number LINNEA ([facility]) Lipoprotein.beta.subparticle.small [Moles/volume] in Serum o r Plasma 177 nmol/L <142 Above high normal LDL Small LINNEA ([facility]) Lipoprotein.alpha.subparticle.large [Moles/volume] in Serum or Plasma 9929 nmol/L >6729 HDL Large LINNEA ([facility]) Lipoprotein.beta.subparticle [Entitic length] in Serum or Pl asma 228.6 angstrom >222.9 LDL Peak Size LINNEA ([facility]) Cholesterol in LDL real size pattern [Identifier] in Serum or Plasm a A A LDL Pattern LINNEA ([facility]) Apolipoprotein B [Mass/volume] in Serum or Plasma 83 mg/dL Apolipoprotein B MERRIMAC ([facility]) Lipoprotein a [Moles/volume] in Serum or Plasma <10 <75 Lipoprotein (a) LINNEA ([facility]) ID Date Data Source [id number] 09/08/2020 10:42:00 AM EDT [facility]) Name Value Range Interpretation Code Description Data Elizabeth rce(s) Supporting Document(s) Triiodothyronine resin uptake (T3RU) in Serum or Plasma 33 % 22 -35 T3 Uptake LINNEA ([facility]) Thyroxine (T4) free index in Serum or Plasma by calculation 1.4-3.8 Free T4 Index (T7) MERRIMAC ([facility]) Thyroxine (T4) [Mass/volume] in Serum or Plasma 6.3 mcg/dL 4.9-10 .5 T4 (Thyroxine), Total LINNEA ([facility]) Thyrotropin [Units/volume] in Serum or Plasma 2.28 mIU/L 0.40-4.50 Tsh [facility]) ID Date Data Source [id number] 03/06/2020 03:06:00 AM [facility] Name Value Range Interpretation Code Description Data Elizabeth rce(s) Supporting Document(s) Carbamazepine (Tegretol) 4.0-12.0 Normal (applies to non -numeric results) [facility] Test Performed By: [facility] [address] [place] [address] Director: Agustin Lawrence MD ID Date Data Source [id number] 03/06/2020 07:49:00 AM [facility] Name Value Range Interpretation Code Description Data Elizabeth rce(s) Supporting Document(s) Carbamazepine result 4.0-12.0 Normal (applies to non-num martin results) [facility] Test Performed By: [facility] [address] [place] [address] Director: Agustin Lawrence MD ID Date Data Source [id number] 03/05/2020 07:55:00 AM EST [facility] Name Value Range Interpretation Code Description Data Elizabeth rce(s) Supporting Document(s) Sodium 137 mmol/L 136-145 Normal (applies to non-numeric resul ts) [facility] Potassium 3.5-5.1 Normal (applies to non-numeric resul ts) [facility] Chloride 99 mmol/L 98-107 Normal (applies to non-numeric resul ts) [facility] Carbon Dioxide CO2 21-32 Normal (applies to non-numer ic results) [facility] Anion Gap 5.0-16.0 Normal (applies to non-numeric resul ts) [facility] BUN 14 mg/dL 7-18 Normal (applies to non-numeric results) [facility] Creatinine,Serum 0.8-1.5 Below low normal [facility] GFR >60 Normal (applies to non-numeric results) [facility] Glucose Level 91 mg/dL 60-99 Normal (applies to non-numeric re sults) [facility] Reference range is only applicable when patient is fasting Note the following drug interference: Sulfasalazine Sulfapyridine Can see falsely depressed Can see falsely elevated result with up to 17% results with up to 11% decrease in measurement increase in measurement Recommend patients be collected for this test prior to administration of either drug. Calcium 8.5-10.1 Normal (applies to non-numeric resul ts) [facility] Bilirubin,Total 0.1-1.9 Normal (applies to non-numeric results) [facility] SGOT(AST) 15 U/L 15-37 Normal (applies to non-numeric resul ts) [facility] Note the following drug interference: Sulfasalazine Sulfapyridine Can see falsely depressed Can see falsely elevated result with up to 10% results with up to 10% decrease in measurement increase in measurement Recommend patients be collected for this test prior to administration of either drug. SGPT(ALT) 16 U/L 12-78 Normal (applies to non-numeric resul ts) [facility] Note the following drug interference: Sulfasalazine Sulfapyridine Can see falsely depressed Can see falsely elevated result with up to 29% results with up to 10% decrease in measurement increase in measurement Recommend patients be collected for this test prior to administration of either drug. Alkaline Phosphatase 45 U/L 38-126 Normal (applies to non-num martin results) [facility] can increase Alkaline Phosp le vels up to 2 times the normal adult value. Normal values for children and adolescents are 2 to 3 times the normal adult value. Total Protein 6.0-8.2 Normal (applies to non-numeric re sults) [facility] Albumin Level 3.4-5.0 Below low normal [facility] ID Date Data Source [id number] 11/22/2020 02:25:00 PM EDT [facility] Name Value Range Interpretation Code Description Data Elizabeth rce(s) Supporting Document(s) CPK result Normal (applies to non-numeric results) [facility] ID Date Data Source [id number] 11/22/2020 02:25:00 PM [facility] Value Range Interpretation Code Description Data Elizabeth rce(s) Supporting Document(s) Hepatitis C Virus Ab result Normal (applies to non-numeric results) [facility] ID Date Data Source [id number] 11/22/2020 02:25:00 PM T [facility] Value Range Interpretation Code Description Data Elizabeth rce(s) Supporting Document(s) Hep Bs Ag result T-Test Normal (applies to non- numeric results) [facility] TESTS MISSED BY [facility] DURING CYBER ATTACK/ DOWNTIME ID Date Data Source [id number] 03/17/2020 08:36:00 AM EST [facility] Value Range Interpretation Code Description Data Elizabeth rce(s) Supporting Document(s) Color,Urine Colorl-Dk Y Normal (applies to non-numeric res ults) [facility] Clarity,Urine Clear Normal (applies to non-numeric re sults) [facility] Specific Cornish,Urine 1.005-1.030 Normal (applies to non- numeric results) [facility] pH,Urine 5.0-8.0 Normal (applies to non-numeric resul ts) [facility] Protein,Urine Negative Normal (applies to non-numeric re sults) [facility] Glucose,Urine Negative Normal (applies to non-numeric re sults) [facility] Ketones,Urine Negative Normal (applies to non-numeric re sults) [facility] Blood,Urine Negative Normal (applies to non-numeric resu lts) [facility] Bilirubin,Urine Negative Normal (applies to non-numeric results) [facility] Urobilinogen,Urine 0.2-1.0 Normal (applies to non-numer ic results) [facility] Leukocyte Esterase,Urine Negative Normal (applies to non -numeric results) [facility] Nitrite,Urine Negative Normal (applies to non-numeric re sults) [facility] ID Date Data Source [id number] 03/17/2020 08:35:00 AM EST [facility] Name Value Range Interpretation Code Description Data Elizabeth rce(s) Supporting Document(s) UDS Benzodiazepines Screen Negative Normal (applies to n on-numeric results) [facility] UDS Cocaine Screen Negative Normal (applies to non-numer ic results) [facility] UDS Ampetamine Screen Negative Normal (applies to non-nu meric results) [facility] UDS Cannabinoids Screen Negative [facility] UDS Opiates Screen Negative Normal (applies to non-numer ic results) [facility] UDS Barbiturates Screen Negative Normal (applies to non- numeric results) [facility] ID Date Data Source [id number] 03/17/2020 08:34:00 AM EST [facility] Name Value Range Interpretation Code Description Data Elizabeth rce(s) Supporting Document(s) Sodium 138 mmol/L 136-145 Normal (applies to non-numeric resul ts) [facility] Potassium 3.5-5.1 Normal (applies to non-numeric resul ts) [facility] Chloride 99 mmol/L 98-107 Normal (applies to non-numeric resul ts) [facility] Carbon Dioxide CO2 21-32 Normal (applies to non-numer ic results) [facility] Anion Gap 5.0-16.0 Normal (applies to non-numeric resul ts) [facility] BUN 9 mg/dL 7-18 Normal (applies to non-numeric results) [facility] Creatinine,Serum 0.8-1.5 Normal (applies to non-numeric results) [facility] GFR >60 Normal (applies to non-numeric results) [facility] Glucose Level 121 mg/dL 60-99 Above high normal [facility] Reference range is only applicable when patient is fasting Note the following drug interference: Sulfasalazine Sulfapyridine Can see falsely depressed Can see falsely elevated result with up to 17% results with up to 11% decrease in measurement increase in measurement Recommend patients be collected for this test prior to administration of either drug. Calcium 8.5-10.1 Below low normal [facility] spital Bilirubin,Total 0.1-1.9 Normal (applies to non-numeric results) [facility] SGOT(AST) 28 U/L 15-37 Normal (applies to non-numeric resul ts) [facility] Note the following drug interference: Sulfasalazine Sulfapyridine Can see falsely depressed Can see falsely elevated result with up to 10% results with up to 10% decrease in measurement increase in measurement Recommend patients be collected for this test prior to administration of either drug. SGPT(ALT) 24 U/L 12-78 Normal (applies to non-numeric resul ts) [facility] Note the following drug interference: Sulfasalazine Sulfapyridine Can see falsely depressed Can see falsely elevated result with up to 29% results with up to 10% decrease in measurement increase in measurement Recommend patients be collected for this test prior to administration of either drug. Alkaline Phosphatase 64 U/L 38-126 Normal (applies to non-num martin results) [facility] can increase Alkaline Phosp le vels up to 2 times the normal adult value. Normal values for children and adolescents are 2 to 3 times the normal adult value. Total Protein 6.0-8.2 Normal (applies to non-numeric re sults) [facility] Albumin Level 3.4-5.0 Below low normal [facility] ID Date Data Source [id number] 03/17/2020 08:34:00 AM EST [facility] Name Value Range Interpretation Code Description Data Elizabeth rce(s) Supporting Document(s) Bilirubin,Direct 0.05-0.20 Normal (applies to non-numeric results) [facility] ID Date Data Source [id number] 03/17/2020 08:34:00 AM [facility] Name Value Range Interpretation Code Description Data Elizabeth rce(s) Supporting Document(s) Thyroid Stimulate Hormone TSH 0.358-3.74 No rmal (applies to non-numeric results) [facility] ID Date Data Source [id number] 03/17/2020 08:31:00 AM [facility] Name Value Range Interpretation Code Description Data Elizabeth rce(s) Supporting Document(s) White Blood Count 3.5-10.5 Normal (applies to non-numeri c results) [facility] Red Blood Count 4.30-5.70 Below low normal [facility] Hemoglobin 13.5-17.5 Below low normal [facility] ospital Hematocrit 38.8-50.0 Normal (applies to non-numeric resul ts) [facility] Mean Corpuscular Volume 81.2-95.1 Above high normal [facility] Mean Corpuscular Hgb 25.6-32.2 Above high normal [facility] Mean Corpuscular Hgb Conc 32.0-36.0 Normal (applies to no n-numeric results) [facility] Red Cell Distribution Width 11.8-15.6 Normal (appli es to non-numeric results) [facility] Platelet Count 165 x10 3/uL 150-450 Normal (applies to non-numeric results) [facility] Mean Platelet Volume 9.4-12.4 Normal (applies to non-num martin results) [facility] Neutrophils% (Auto) 31.0-71.0 Normal (applies to non-nume conchita results) [facility] Lymphocytes% (Auto) 20.0-55.0 Below low normal [facility] Monocytes% (Auto) 4.0-12.0 Normal (applies to non-numeri c results) [facility] Eosinophils% (Auto) 1.0-8.0 Above high normal [facility] Basophils% (Auto) 0.0-2.0 Normal (applies to non-numeri c results) [facility] Immature Granulocytes% (Auto) 0.0-2.0 Normal (dmitry lies to non-numeric results) [facility] Neutrophils# (Auto) 1.50-6.20 Normal (applies to non-nume conchita results) [facility] Lymphocytes# (Auto) 1.20-4.00 Below low normal [facility] Monocytes# (Auto) 0.00-0.90 Normal (applies to non-numeri c results) [facility] Eosinophils# (Auto) 0.00-0.50 Above high normal [facility] Basophils# (Auto) 0.00-0.20 Normal (applies to non-numeri c results) [facility] Immature Granulocytes# (Auto) 0.00-7.00 No rmal (applies to non-numeric results) [facility] ID Date Data Source [id number] 01/26/2020 11:41:11 AM EDT [facility] Measurements & CalculationsHeight: 68 inches (5 ft. 8 in.) 172.72 cm Weight: 156 pounds 70.91 kg Body Mass Index (BMI): 23.81BMI Interpretation: Healthy WeightBody Surface Area (BSA): 1.84Weight Management Education Done (Nutrition/Physical Activity)Vital SignsTemperature: 97.2F 36.22C tympanic Pulse Rate: 85 beats/minuteRespiratory Rate: 19 respirations/minuteBlood Pressure: 125/87 left arm sitting automaticO2 Saturation: 99% Vital Signs performed by: Savanna Pavon LPN, January 26, 2020 11:42 AMInitial Intake Information From: patientRoom #: 1Infectious Disease / Travel ScreeningRecent travel for you or any close contacts? NoHave you had any close contact with anyone diagnosed with or under investigation for COVID-19 (coronavirus)? NoFever? NoRespiratory symptoms: cough, cold, congestion, shortness of breath, difficulty breathing? NoLoss of smell? NoLoss of taste? N oSmoking, Tobacco, Vaping or Smoke Exposure StatusSmoke Status: current every day smokerTobacco Use: YesAdv to Quit: YesDo you vape? NoPassive Smoke Exposure: YesHealthcare HistorySince your last office visit...Have you been admitted to the hospital? NoHave you been to an emergency room (ER) or urgent care clinic? Yes - seizureEmergency room (ER) or urgent care date reported today: 01/24/2020Have you seen a dentist? NoIntake performed by: Savanna Pavon LPN, January 26, 2020 11:42 AMRate Your HealthIn general, would you say your health is? Very GoodPain AssessmentAre you currently having any pain which... You would like your provider to address? Yes Affects your activity level? YesDepression Screening - PHQ-2Over the last two weeks, have you... Had little interest or pleasure in doing things? Not at all Been feeling down, depressed, or hopeless? Not at all PHQ-2 Score: 0Anxiety Screening - MERRICK-2Over the last two weeks, have you been... Feeling nervous, anxious, or on edge? Several days Unable to stop or control worrying? Several days MERRICK-2 Score: 2Food InsecurityWithin the past year...Did you worry whether your food would run out before you got money to buy more? Never trueWas there a time when the food you bought didn't last and you didn't have money to get more? Never trueGeneralized Anxiety Disorder 7-Item Screening (MERRICK-7)Answer Guide:0 = Not at all1 = Several days2 = Over half the days3 = Nearly every dayOver the last 2 weeks, how often have you been bothered by the following problems?Feeling nervous, anxious, or on edge: 1Not being able to stop or control worryinWorrying too much about different things: 1Trouble relaxinBeing so restless that it's hard to sit still: 1Becoming easily annoyed or irritable: 1Feeling afraid as if something awful might happen: 1Answer Guide:0 = Not difficult at all1 = Somewhat difficult2 = Very difficult3 = Extremely difficultHow difficult have these made it for you to do your work, take care of things at home, or get along with other people? 1GAD-7 Screening Results MERRICK-2 Score: 2GAD-7 Score: 7Functional Impairment: Somewhat difficultRecommendation: Mild anxietyPain AssessmentLocation: hip/backDuration: 2-3 daysFrequency: DailyScreening, Brief Intervention, & Referral to Treatment (SBIRT)Pre-Screening Questions How many times have you have 5 or more drinks in a day? 200How many times have you used an illegal drug or used a prescription medication for a non-medical reason? 200Performed by: Savanna Pavon LPN, January 26, 2020 11:44 AMPatient History Medical History:back spasmseizuresalcoholismSurgical History:No known surgical historyFamily History:Heart disease (Mother)Cancer - Unknown (Mother)Social/Personal History: Advised to Quit/Tobacco Education: YesChief Complaintfollow-up visitHistory of Present Illness (HPI)54 yo male presents for follow up of seizures.Pt states he has had about 6 seizures the last 3 weeks. Pt was diagnosed with seizures 2.5 yrs ago at [facility]. 01/24/2020 on Mond ay was worst one. Pt fell down stairs at his home. States he usually knows when it will happen: sees white spots, sweats profusely, is able to sit himself down, denies rigors or LOC (until 01/24/2020). Admits to drinking [employer] tall boys 3-4 times a week and 2-3 at a time. Last detox program was about 1.5 yrs ago at [place], has detoxed 4 times for alcohol total. Pt has attended rehab at [facility] and [facility] previously. Currently with [facility], talks to [facility] once a week, next appointment is tomorrow. They suggested he meet with mental health there, he is considering this. Doesn't drive or "even ride a bike". Receives Vivitrol through [facility]. Naltrexone as well that he takes twice daily prior to injections, but admits to not taking right now. Transitions of Care InboundProblem ReviewProblem List was reviewed and/or updated during this visit.Medication Reconciliation & ReviewMedication List was reviewed and/or updated during this visit, including review of any ptoa-dsy-bilpyjw medications, herbal therapies, and/or supplements.Allergy ReviewAllergy List was reviewed and/or updated during this visit.Adult Preventive CareScreening Tobacco Screening: Smoking Status: current every day smoker (01/26/2020) Tobacco Use: Currently (01/26/2020) Advised to Quit: Yes (01/26/2020)Labs/Meds/Other Counseling-Nutrition and Physical Activity:BMI Interpretation: Healthy Weight (01/26/2020) Counseling: Done (01/26/2020) Physical Activity: Done (01/26/2020)Review of Systems General: Denies loss of appetite, dizziness, fatigue, fever, headache, feeling ill. Eyes: Complains of see HPI. Denies double vision, eye pain, sensitivity to light. Ears/Nose/Throat: Denies earache, ringing in ears. Cardiovascular: Denies chest pain, palpitations, feeling faint, peripheral edema, elevated blood pressure. Respiratory: Complains of cough, shortness of breath, wheezing. he attributes to his allergies and emphysemaGastrointestinal: Denies nausea, vomiting, diarrhea, pain or discomfort. Musculoskeletal: Complains of see HPI, back pain. Neurologic: Complains of see HPI, seizures. Denies weakness, numbness/tingling, slurred speech, feeling faint, tremors. Psychiatric: Complains of see HPI. Physical ExamGeneral Appearance: well nourished, well hydrated, no acute distress, disheveled and unkeptEyes, External: conjunctivae and lids normal, EOMIPupils: equal, round, reactive to light and accommodationNeck: FROMRespiratory, Auscultation: clear to auscultation bilaterally; no rales, rhonchi, or wheezesCardiovascular, Auscultation: S1, S2 audible; no murmur, rub, or gallop; RRRPeripheral Circulation: no clubbing, cyanosis, edema, or varicositiesAbdomen: soft, non-tender, no masses, bowel sounds normalGait & Station: somewhat stiff but unassistedSensation: normal and symmetric perception of light touch throughoutMotor, Tone, & Strength: normal tone and muscle bulk; no atrophy or fasciculations present; strength 5/5 throughoutOrientation: oriented to time, place, and personMood & Affect: no depression, anxiety, or agitationJudgment & Insight: intactCare Management Plan Transitions of CareInboundRate Your HealthIn general, would you say your health is? Very GoodAssessment & Plan Problems:Added: BMI 23.0-23.9 (ICD-V85.1) (ICD10- Z68.23)Assessed:Other epilepsy, intractable, with status epilepticus (ICD10- G40.803) Assessment: Instructions: Urgent referral to neurology as this appears to have never been fully worked up and diagnosed. Reviewed no driving or operating heavy machinery. Reviewed risk of alcohol with seizures.Alcohol abuse (ICD-305.00) (DMU34-D12.10) Assessment: Instructions: Continue with [facility], consider more aggressive treatment like rehab or detox.Low back pain (ICD-724.2) (WSK87-E79.5) Assessment: Instructions: Supportive measures: heat/ice, gentle stretching, consider physical therapy. No muscle relaxers due to alcohol intake.Spasm of back muscles (ICD-724.8) (JJM84-O57.830) Assessment: Instructions: As above.Allergic rhinitis (ICD-477.9) (ICD10- J30.9) Assessment: Instructions: Refilled allergy medication and ventolin inhaler.Removed:Acute frontal sinusitis, unspecified (PFX90-T77.10)Patient In structions/Care Plan: Other epilepsy- intractable- with status epilepticus: Urgent referral to neurology as this appears to have never been fully worked up and diagnosed. Reviewed no driving or operating heavy machinery. Reviewed risk of alcohol with seizures.Alcohol abuse: Continue with [facility], consider more aggressive treatment like rehab or detox.Low back pain: Supportive measures: heat/ice, gentle stretching, consider physical therapy. No muscle relaxers due to alcohol intake.Spasm of back muscles: As above.Allergic rhinitis: Refilled allergy medication and ventolin inhaler. Plan developed in collaboration with patient and/or familyMedications:VENTOLIN HFA 108 (90 BASE) MCG/ACT INHALATION AEROSOL SOLUTIONZYRTEC ALLERGY 10 MG ORAL TABLETFLONASE ALLERGY RELIEF 50 MCG/ACT NASAL SUSPENSIONTEGRETOL 200 MG ORAL TABLETTRAZODONE HCL 100 MG ORAL TABLETSINGULAIR 10 MG ORAL TABLETMedication Changes:Refilled:VENTOLIN HFA 108 (90 BASE) MCG/ACT INHALATION AEROSOL KASNYLJW-8-9 puffs q 4-6 hours prn wheezing Qty: 1[Inhaler] Refills: 2 Method: ElectronicZYRTEC ALLERGY 10 MG ORAL TABLET-1 tab po daily Qty: 90[Tablet] Refills: 0 Method: ElectronicFLONASE ALLERGY RELIEF 50 MCG/ACT NASAL SUSPENSION-one spray/nostril QD Qty: 3[Container] Refills: 0 Method: ElectronicSINGULAIR 10 MG ORAL TABLET-1 tab po at bedtime Qty: 90[Tablet] Refills: 0 Method: ElectronicRemoved:CYCLOBENZAPRINE HCL 5 MG ORAL TABLET- one tab po TID prn spasm, NICORELIEF 2 MG MOUTH/THROAT GUM-1 unit daily, ACAMPROSATE CALCIUM 333 MG ORAL TABLET DELAYED RELEASE-1 tab po tid, ALL DAY ALLERGY 10 MG ORAL TABLET-1 tab dailyChanged:From: ORAL ZYRTEC ALLERGY 10 MG ORAL TABLET Qty: [id number] Refills: 90[Tablet] To: ZYRTEC ALLERGY 10 MG ORAL TABLET-1 tab po daily Qty: 90[Tablet] Refills: 0 To: FLONASE ALLERGY RELIEF 50 MCG/ACT NASAL SUSPENSION-one spray/nostril QD Qty: 3[Container] Refills: 0From: ORAL SINGULAIR 10 MG ORAL TABLET Qty: [id number] Refills: 90[Tablet] To: SINGULAIR 10 MG ORAL TABLET-1 tab po at bedtime Qty: 90[Tablet] Refills: 0Allergies:* SEASONAL (Critical)Orders:Neurology Consult [CPT-03219] Adult - Ofc Vst, EST, Level IV [CPT-36088] Follow-Up Return to clinic: in 30 days for preventive care visitAdditional Follow-Up: annual PE with Dr. Cifuentesinical Visit Summary Completed Name Value Range Interpretation Code Description Data Elizabeth rce(s) Supporting Document(s) Procedure Social History No Information Vital Signs ID Date Data Source UNK Name Value Range Interpretation Code Description Data Source(s) Diastolic blood pressure 76 mm[Hg] 76 mm[Hg] [facility] ([facility]) Body height 68 [in_i] 68 [in_i] [facility] ([facility]) Body mass index (BMI) [Ratio] 24.3 kg/m2 24.3 k g/m2 [facility] ([facility]) Systolic blood pressure 111 mm[Hg] 111 mm[Hg] A [facility] ([facility]) Body weight 2552 [oz_av] 2552 [oz_av] LINNEA ([facility]) Body height 68 [in_i] 68 [in_i] [facility] ([facility]) Body height 68 [in_i] 68 [in_i] [facility] ([facility]) Diastolic blood pressure 80 mm[Hg] 80 mm[Hg] [facility] ([facility]) Body height 68 [in_i] 68 [in_i] [facility] ([facility]) Diastolic blood pressure 80 mm[Hg] 80 mm[Hg] [facility] ([facility]) Body height 68 [in_i] 68 [in_i] [facility] ([facility]) Body mass index (BMI) [Ratio] 24.9 kg/m2 24.9 k g/m2 [facility] ([facility]) Systolic blood pressure 119 mm[Hg] 119 mm[Hg] A THENA ([facility]) Body weight 2624 [oz_av] 2624 [oz_av] [facility] ([facility]) Body mass index (BMI) [Ratio] 24.9 kg/m2 24.9 k g/m2 [facility] ([facility]) Systolic blood pressure 119 mm[Hg] 119 mm[Hg] A THENA ([facility]) Body weight 2624 [oz_av] 2624 [oz_av] [facility] ([facility]) Diastolic blood pressure 80 mm[Hg] 80 mm[Hg] [facility] ([facility]) Body height 68 [in_i] 68 [in_i] [facility] ([facility]) Body mass index (BMI) [Ratio] 24.9 kg/m2 24.9 k g/m2 [facility] ([facility]) Systolic blood pressure 119 mm[Hg] 119 mm[Hg] A THE[facility] ([facility]) Body weight 2624 [oz_av] 2624 [oz_av] [facility] ([facility]) Diastolic blood pressure 80 mm[Hg] 80 mm[Hg] [facility] ([facility]) Body height 68 [in_i] 68 [in_i] [facility] ([facility]) Body mass index (BMI) [Ratio] 24.9 kg/m2 24.9 k g/m2 [facility] ([facility]) Systolic blood pressure 119 mm[Hg] 119 mm[Hg] A THENA ([facility]) Body weight 2624 [oz_av] 2624 [oz_av] [facility] ([facility]) Diastolic blood pressure 87 mm[Hg] 87 mm[Hg] [facility] ([facility]) Body height 68 [in_i] 68 [in_i] [facility] ([facility]) Body mass index (BMI) [Ratio] 23.81 kg/m2 23.81 kg/m2 [facility] ([facility]) Systolic blood pressure 125 mm[Hg] 125 mm[Hg] A THENA ([facility]) Body weight 2496 [oz_av] 2496 [oz_av] [facility] ([facility]) Diastolic blood pressure 87 mm[Hg] 87 mm[Hg] [facility] ([facility]) Body height 68 [in_i] 68 [in_i] [facility] ([facility]) Body mass index (BMI) [Ratio] 23.81 kg/m2 23.81 kg/m2 [facility] ([facility]) Systolic blood pressure 125 mm[Hg] 125 mm[Hg] A SCOTT ([facility]) Body weight 2496 [oz_av] 2496 [oz_av] [facility] ([facility]) ID Date Data Source [id number] 11/03/2020 06:58:00 PM EDT [facility] Name Value Range Interpretation Code Description Data Source(s) Weight (Calculated Kilograms) 78.02 78.02 [facility] Height (Calculated Centimeters) 172.72 172. 72 [facility] Body Mass Index (BMI) 26.1 26.1 [facility] ID Date Data Source [id number] 11/06/2020 06:37:00 AM EDT [facility] spital Name Value Range Interpretation Code Description Data Source(s) Weight (Calculated Kilograms) 68.67 68.67 [facility] Weight 2422.4 2422.4 [facility] pital Temperature Source 7 7 [facility] Temperature 97.6 97.6 [facility] spital Respiratory Effort 1 1 [facility] Respiratory Rate 18 18 [facility] Pulse Assessment Method 4 4 G [facility] Pulse Rate 68 68 [facility] Height (Calculated Centimeters) 172.72 172. 72 [facility] Height 68 68 [facility] Blood Pressure 122/68 122/68 [facility] Body Mass Index (BMI) 23.0 23.0 [facility] Weight (Calculated Kilograms) 68.67 68.67 [facility] Weight 2422.4 2422.4 [facility] pital Temperature Source 7 7 [facility] Temperature 97.6 97.6 [facility] spital Respiratory Effort 1 1 [facility] Respiratory Rate 18 18 [facility] Pulse Assessment Method 4 4 [facility] Pulse Rate 68 68 [facility] pital Height (Calculated Centimeters) 172.72 172. 72 [facility] Height 68 68 [facility] Blood Pressure 122/68 122/68 [facility] Body Mass Index (BMI) 23.0 23.0 [facility] Weight (Calculated Kilograms) 68.67 68.67 [facility] Weight 2422.4 2422.4 [facility] pital Temperature Source 7 7 [facility] Temperature 97.6 97.6 [facility] spital Respiratory Effort 1 1 [facility] Respiratory Rate 18 18 [facility] Pulse Assessment Method 4 4 [facility] Pulse Rate 68 68 [facility] pital Height (Calculated Centimeters) 172.72 172. 72 [facility] Height 68 68 [facility] pital Blood Pressure 122/68 122/68 [facility] Body Mass Index (BMI) 23.0 23.0 [facility] Weight (Calculated Kilograms) 68.67 68.67 [facility] Weight 2422.4 2422.4 [facility] pital Temperature Source 7 7 [facility] Temperature 97.1 97.1 [facility] spital Respiratory Effort 1 1 [facility] Respiratory Rate 18 18 [facility] Pulse Assessment Method 4 4 [facility] Pulse Rate 86 86 [facility] pital Height (Calculated Centimeters) 172.72 172. 72 [facility] Height 68 68 [facility] pital Blood Pressure 114/78 114/78 [facility] Body Mass Index (BMI) 23.0 23.0 [facility] Weight (Calculated Kilograms) 68.67 68.67 [facility] Weight 2422.4 2422.4 [facility] pital Temperature Source 3 3 [facility] Temperature 97.7 97.7 [facility] spital Respiratory Effort 1 1 [facility] Respiratory Rate 18 18 [facility] Pulse Assessment Method 4 4 [facility] Pulse Rate 80 80 [facility] pital Height (Calculated Centimeters) 172.72 172. 72 [facility] Height 68 68 [facility] pital Blood Pressure 138/85 138/85 [facility] Body Mass Index (BMI) 23.0 23.0 [facility] Weight (Calculated Kilograms) 68.67 68.67 [facility] Weight 2422.4 2422.4 [facility] pital Temperature 97.1 97.1 [facility] spital Respiratory Effort 1 1 [facility] Respiratory Rate 18 18 [facility] Pulse Rate 90 90 [facility] Height (Calculated Centimeters) 172.72 172. 72 [facility] Height 68 68 [facility] Blood Pressure 141/92 141/92 [facility] Body Mass Index (BMI) 23.0 23.0 [facility] Weight (Calculated Kilograms) 74.84 74.84 [facility] Height (Calculated Centimeters) 177.8 177. 8 [facility] Body Mass Index (BMI) 23.6 23.6 [facility] ID Date Data Source [id number] 11/02/2020 12:05:00 AM EDT [facility]ital Name Value Range Interpretation Code Description Data Source(s) Weight (Calculated Kilograms) 74.84 74.84 [facility] Height (Calculated Centimeters) 177.8 177. 8 [facility] Body Mass Index (BMI) 23.6 23.6 [facility] ID Date Data Source [id number] 04/10/2020 11:50:00 PM [facility] Name Value Range Interpretation Code Description Data Source(s) Weight (Calculated Kilograms) 78.02 78.02 [facility] Height (Calculated Centimeters) 172.72 172. 72 [facility] Body Mass Index (BMI) 26.1 26.1 [facility] ID Date Data Source [id number] 11/22/2020 02:25:00 PM EDT [facility] Name Value Range Interpretation Code Description Data Source(s) Weight (Calculated Kilograms) 74.84 74.84 [facility] Weight 2528 2528 [facility] pital Temperature Source 7 7 [facility] Temperature 98.1 98.1 [facility] spital Respiratory Effort 1 1 [facility] Respiratory Rate 16 16 [facility] Pulse Assessment Method 4 4 [facility] Pulse Rate 70 70 [facility] pital Height (Calculated Centimeters) 177.8 177. 8 [facility] Height 68 68 [facility] pital Blood Pressure 100/65 100/65 [facility] Body Mass Index (BMI) 23.6 23.6 [facility] Weight (Calculated Kilograms) 74.84 74.84 [facility] Weight 2528 2528 [facility] pital Temperature Source 7 7 [facility] Temperature 98.1 98.1 [facility] spital Respiratory Effort 1 1 [facility] Respiratory Rate 16 16 [facility] Pulse Assessment Method 4 4 [facility] Pulse Rate 70 70 [facility] pital Height (Calculated Centimeters) 177.8 177. 8 [facility] Height 68 68 [facility] pital Blood Pressure 100/65 100/65 [facility] Body Mass Index (BMI) 23.6 23.6 [facility] Weight (Calculated Kilograms) 74.84 74.84 [facility] Weight 2528 2528 [facility] pital Temperature Source 7 7 [facility] Temperature 98.1 98.1 [facility] Res[facility] Effort 1 1 [facility] Respiratory Rate 16 16 [facility] Pulse Assessment Method 4 4 [facility] Pulse Rate 70 70 [facility] pital Height (Calculated Centimeters) 177.8 177. 8 [facility] Height 68 68 [facility] Blood Pressure 100/65 100/65 [facility] Body Mass Index (BMI) 23.6 23.6 [facility] Weight (Calculated Kilograms) 74.84 74.84 [facility] Weight 2528 2528 [facility] pital Temperature Source 7 7 [facility] Temperature 98.1 98.1 [facility] spital Respiratory Effort 1 1 [facility] Respiratory Rate 16 16 [facility] Pulse Assessment Method 4 4 [facility] Pulse Rate 70 70 [facility] pital Height (Calculated Centimeters) 177.8 177. 8 [facility] Height 68 68 [facility] pital Blood Pressure 100/65 100/65 [facility] Body Mass Index (BMI) 23.6 23.6 [facility] Weight (Calculated Kilograms) 74.84 74.84 [facility] Temperature Source 7 7 [facility] Temperature 97.9 97.9 [facility] spital Respiratory Effort 1 1 [facility] Respiratory Rate 18 18 [facility] Pulse Assessment Method 4 4 [facility] Pulse Rate 77 77 [facility] pital Height (Calculated Centimeters) 177.8 177. 8 [facility] Blood Pressure 128/79 128/79 [facility] Body Mass Index (BMI) 23.6 23.6 [facility] Weight (Calculated Kilograms) 74.84 74.84 [facility] Temperature Source 7 7 [facility] Temperature 97.9 97.9 [facility] spital Respiratory Effort 1 1 [facility] Respiratory Rate 18 18 [facility] Pulse Assessment Method 4 4 [facility] Pulse Rate 77 77 [facility] Height (Calculated Centimeters) 177.8 177. 8 [facility] Blood Pressure 128/79 128/79 [facility] Body Mass Index (BMI) 23.[address] [place] [address] Weight (Calculated Kilograms) 74.84 74.84 [facility] Temperature Source 7 7 [facility] Temperature 97.9 97.9 [facility] spital Respiratory Effort 1 1 [facility] Respiratory Rate 16 16 [facility] Pulse Assessment Method 4 4 [facility] Pulse Rate 85 85 [facility] Height (Calculated Centimeters) 177.8 177. 8 [facility] Blood Pressure 150/91 150/91 [facility] Body Mass Index (BMI) 23.[address] Patient Treatment Plan of Care Planned Activity Planned Date Details Description Data Source (s) Cyclobenzaprine hydrochloride 5 MG Oral Tablet 10/12/2020 12:00:00 AM EDT [facility] ([facility]) paroxetine 10 mg tablet 05/11/2020 12:00:00 AM EST [facility] ([facility]) paroxetine 10 mg tablet 05/11/2020 12:00:00 AM EST [facility] ([facility]) paroxetine 10 mg tablet 05/11/2020 12:00:00 AM EST [facility] ([facility]) paroxetine 10 mg tablet 05/11/2020 12:00:00 AM EST [facility] ([facility]) Naltrexone 112 MG/ML Injectable Suspension [Vivitrol] [facility] ([facility]) Trazodone Hydrochloride 50 MG Oral Tablet [facility] ([facility]) Trazodone Hydrochloride 100 MG Oral Tablet [facility] ([facility]) Nicotine 4 MG Oral Lozenge A THENA ([facility]) Naltrexone hydrochloride 50 MG Oral Tablet [facility] ([facility]) Folic Acid 1 MG Oral Tablet [facility] ([facility]) Carbamazepine 200 MG Oral Tablet [facility] ([facility]) Acamprosate calcium 333 MG Delayed Release Oral Tablet [facility] ([facility]) Trazodone Hydrochloride 50 MG Oral Tablet [facility] ([facility]) Trazodone Hydrochloride 100 MG Oral Tablet [facility] ([facility]) Trazodone Hydrochloride 50 MG Oral Tablet [facility] ([facility]) Trazodone Hydrochloride 100 MG Oral Tablet [facility] ([facility]) Trazodone Hydrochloride 50 MG Oral Tablet [facility] ([facility]) Trazodone Hydrochloride 100 MG Oral Tablet [facility] ([facility])
[2021-03-04] MEDS ORDERED: B-1100TA2 PO (14:01)
[2021-03-04] MEDS ORDERED: MONT10TA10 PO (14:01)
[2021-03-04] MEDS ORDERED: FOLI1TAB11 PO (14:01)
--- NOTE | 2021-03-04 15:29 | REP ---
INDICATION: trauma. COMPARISON: 01/24/2020 TECHNIQUE: Axial soft tissue and bone window settings with coronal reconstructions provided FINDINGS: Lateral ventricles are midline symmetric and dilated in proportion with cortical atrophy. Moderate volume loss is noted. Fu-white junction differentiation is maintained. There is no vascular territory infarct, intracranial hemorrhage, mass, mass effect or edema. Basal ganglia were symmetric. Third and 4th ventricles also proportionate and unremarkable. Brainstem intact cerebellum shows atrophy without hemorrhage or mass in the posterior fossa. Basal cisterns are intact. Mastoids were symmetric and preserved. There is mucosal thickening in left sphenoid and maxillary sinuses. The ethmoid, frontal and right maxillary sinuses clear. Septum midline. Skull base and calvarium show no fracture or focal lesion. Orbits and contents symmetric. IMPRESSION: 1. Ventriculomegaly and cortical atrophy in proportion with no new or acute infarct, intracranial hemorrhage, mass, mass effect or edema. 2. Left sphenoid and maxillary sinus mucosal thickening the other sinuses clear. Skull base and calvarium intact. Stable exam with no new findings. <Electronically signed by Flavio Rainey > 03/04/21 0334
--- NOTE | 2021-03-04 15:37 | REP ---
INDICATION: trauma. COMPARISON: CT 01/24/2020 TECHNIQUE: Trauma protocol with axial soft tissue and bone windows and both coronal and sagittal bone window reconstructions. FINDINGS: Vertebral body heights are maintained there is no malalignment some disc space narrowing at C4-5 through C6-7. Posterior osteophytes from C4-5 through C7-T1. Prominent anterior osteophytes and syndesmophytes at C4-5 through C6-7. All of this is stable the dens was intact. Its relationship to the anterior arch C1 is normal. The dens and lateral masses of C1 show normal relationship on the coronal reconstructions. Craniocervical and cervicothoracic alignment normal. Posterior elements show spinous processes, lamina, pedicles, facets, transverse processes and transverse foramina without evidence of fracture. There is no prevertebral swelling. Cervical disc space narrowing with posterior osteophytes and disc bulges are again seen with central canal stenosis at C4-5 and C5-6, less at C6-7 but unchanged. There is foraminal encroachment due to uncinate spurring and facet arthropathy at multiple levels, greatest at C5-6. Visualized portion of the lung apices are normal. That portion of the 1st 2 paired ribs and associated vertebral bodies seen was unremarkable. Soft tissues of the neck were unremarkable. IMPRESSION: 1. Normal alignment and no evidence of compression fracture, avulsion, prevertebral swelling or other acute bony finding. 2. Degenerative disc disease and facet arthritis with uncinate spurring contributing to central canal and foraminal stenosis at multiple levels but these findings are stable. Nothing acute. <Electronically signed by Flavio Rainey > 03/04/21 0942
--- NOTE | 2021-03-04 15:43 | REP ---
INDICATION: trauma. COMPARISON: Right rib series 06/12/2016 TECHNIQUE: AP supine. FINDINGS: Lung edwards are mildly hyperinflated. There overpenetrated limiting evaluation. There is focal soft tissue/sub pleural thickening laterally at the inferior right lung base and some infrahilar soft tissue density this could be loculated fluid or subpleural hematoma or effusion versus other pleural lesion and parenchymal opacity as atelectasis/infiltrate in the right infrahilar region. Left lung clear. Heart not enlarged. The aorta and airway intact. No widening of the mediastinum. Rubi grossly intact. There is an old healed and remodeled fracture of the midshaft of the right clavicle and the posterolateral left 9th rib. No free air under the diaphragm IMPRESSION: 1. Focal pleural thickening or subpleural hematoma/effusion right lateral lower chest wall some blunting of CP angle, stranding in the lower lobe and infrahilar right base atelectasis or infiltrate suspected. Left lung clear. Lungs overpenetrated so detail is not for this AP supine chest. 2. No cardiomegaly or edema. Old healed and remodeled the mid right clavicle and left posterolateral 9th rib fracture. No definite acute bony finding. <Electronically signed by Flavio Rainey > 03/04/21 [id number]
--- NOTE | 2021-03-04 15:49 | REP ---
INDICATION: trauma. COMPARISON: None. TECHNIQUE: AP pelvis and two-view right hip. FINDINGS: AP pelvis: Pelvic ring intact SI joints symmetric. Sacral ala and foramina intact degenerative disc and facet changes in the lower lumbar spine noted. Iliac wings without fracture. Bilateral hips show acetabular roof sclerosis, spurring at the margins and some mild subchondral cystic change femoral head show no obvious fracture and the hip joint spaces are symmetric and preserved femoral neck and intertrochanteric region without fracture. There is soft tissue ossification in the region of the greater tuberosity at tendon insertions. Pubic rami and symphysis pubis unremarkable. Right hip two view shows sclerosis acetabular roof and rim osteophyte femoral head. Some subchondral cystic change in that acetabular roof and 1 small areas suggested in the femoral head on the frogleg view there may be very mild narrowing of the hip joint space superiorly on the frogleg view no AVN or fracture. Ossific densities adjacent to tendon insertions on the greater trochanter proximal shaft of the femur and that portion of ischium and symphysis pubis seen unremarkable. IMPRESSION: 1. Some osteoarthritis of the hip without visible or displaced fracture. Subtle joint-space narrowing right hip superiorly on the frogleg view. Rim osteophyte on that femoral head as well as acetabulum. 2. The AP pelvis shows no fracture or focal lesion. There are degenerative changes lower lumbar spine and facets. Fairly symmetric hip joint degenerative changes seen. <Electronically signed by Flavio Rainey > 03/04/21 0370
[2021-03-04 15:50] LABS: BASO % 0.2 % (0.0-1.0); EOS % 0.1 % (0.0-3.0); LYMPH # 1.8 10^3/uL (1.5-5.0); LYMPH % 10.3 % (24.0-44.0); MEAN CORPUSCULAR HGB CONC 31.8 g/dl (32.0-36.5); MEAN CORPUSCULAR VOLUME 100.6 fl (80.0-96.0); MONO # 1.3 10^3/uL (0.0-0.8); MONO % 7.3 % (2.0-8.0); NEUTROPHILS # 13.8 10^3/uL (1.5-8.5); NEUTROPHILS % 79.3 % (36.0-66.0); PLATELET COUNT, AUTOMATED 574 10^3/uL (150-450); RED BLOOD COUNT 1.72 10^6/uL (4.30-6.10); WHITE BLOOD COUNT 17.4 10^3/uL (4.0-10.0)
[2021-03-04 15:54] LABS: HEMATOCRIT 17.3 % (42.0-52.0); HEMOGLOBIN 5.5 g/dl (13.5-17.5)
--- OUTSIDE RECORDS SUMMARY | 2021-03-04 15:54 | CCD ---
Author Author [facility] Organization [facility] Address Unknown Phone Unavailable Care Team Providers Care Histotechnologist Name Role Phone GIO RUANO MD Unavailable [...] Yayo Gibbs MD Unavailable Unavailable Jailene Collado MANAGER FITNESS Unavailable Unavailable Drea Marcus MD Unavailable Unavailable [...] Unavailable UNKNOWN Unavailable Unavailable Collado, F Jailene MANAGER FITNESS-BC Unavailable Unavailable Collado, F Jailene MANAGER FITNESS-BC Unavailable Unavailable Collado, F Jailene MANAGER FITNESS-BC Unavailable Unavailable Collado, F Jailene MANAGER FITNESS-BC Unavailable Unavailable Collado, F Jailene MANAGER FITNESS-BC Unavailable Unavailable Collado, F Jailene MANAGER FITNESS-BC Unavailable Unavailable Collado, F Jailene MANAGER FITNESS-BC Unavailable Unavailable Collado, F Jailene MANAGER FITNESS-BC Unavailable Unavailable Collado, F Jailene MANAGER FITNESS-BC Unavailable Unavailable Collado, F Jailene MANAGER FITNESS-BC Unavailable Unavailable Collado, F Jailene MANAGER FITNESS-BC Unavailable Unavailable Collado, F Jailene MANAGER FITNESS-BC Unavailable Unavailable Collado, F Jailene MANAGER FITNESS-BC Unavailable Unavailable Collado, F Jailene MANAGER FITNESS-BC Unavailable Unavailable Collado, F Jailene MANAGER FITNESS-BC Unavailable Unavailable Collado, F Jailene MANAGER FITNESS-BC Unavailable Unavailable Collado, F Jailene MANAGER FITNESS-BC Unavailable Unavailable Collado, F Jailene MANAGER FITNESS-BC Unavailable Unavailable Collado, F Jailene MANAGER FITNESS-BC Unavailable Unavailable Collado, F Jailene MANAGER FITNESS-BC Unavailable Unavailable Collado, F Jailene MANAGER FITNESS-BC Unavailable Unavailable Mahamed Collado MANAGER FITNESS-BC Unavailable Unavailable Mahamed Collado MANAGER FITNESS-BC Unavailable Unavailable Re-disclosure Warning The records that [...] is protected by Article 27-F of the [facility] Public Health law. If you continue you may have access to information: Regarding HIV / AIDS; Provided by facilities licensed or operated by the [facility] Office of Mental Health; or Provided by the [facility] Office for People With Developmental Disabilities. If such information is present, then the following [facility] mandated warning applies: This information has been [...] law may result in a fine or custodial sentence or both. A general authorization for the release of medical or other information is NOT sufficient authorization for further disc losure. Family History Family Member Name Family Member Gender Family Member Status Date o f Status Description Data Source(s) Unknown Unknown Problem [facility] Encounters Encounter Providers Location Date Indications Data Source(s ) Outpatient Attender: UNKNOWN [facility]PS[facility]ORT-LABEJN 11/01/2020 08:33:00 PM E DT [facility] Inpatient Attender: Torres Henley MDA ttender: GIO RUANO MDAdmitter: Torres Henley MD [facility] 11/01/2020 07:03:00 PM EDT - 11/04/2020 01:55:00 PM EDT F10.20 [facility] F10.20 Patient discharged. Outpatient Attender: Torres Henley MD ED-LABPNP 10/2020 04:26:00 PM EDT - 11/01/2020 04:27:00 PM EDT DETOX [facility] DETOX Patient discharged. Alexx Gibbs MD: [address] [place] [address], Ph. Attender: Alexx Gibbs MD [facility] Medical 10/12/2020 12:00:00 AM EDT [facility] ([facility]) Alexx Gibbs MD: [address] [place] [address], Ph. Attender: Alexx Gibbs MD [facility] Medical 09/08/2020 12:00:00 AM EDT [place] ([facility]) Alexx Gibbs MD: [address] [place] [address], Ph. Attender: Alexx Gibbs MD [facility] Medical 09/08/2020 12:00:00 AM EDT [place] ([facility]) Alexx Gibbs MD: [address] [place] [address], Ph. Attender: Alexx Gibbs MD [facility] Medical 05/11/2020 12:00:00 AM EST [facility] ([facility]) Alexx Gibbs MD: [address] [place] [address], Ph. Attender: Alexx Gibbs MD [facility] Medical 05/11/2020 12:00:00 AM EST [facility] ([facility]) Alexx Gibbs MD: [address] [place] [address], Ph. Attender: Alexx Gibbs MD [facility] Medical 05/11/2020 12:00:00 AM EST [facility] ([facility]) Alexx Gibbs MD: [address] [place] [address], Ph. Attender: Alexx Gibbs MD [place] [facility] Medical 05/11/2020 12:00:00 AM EST VAN ([facility]) Outpatient [facility]PS[facility]ORT-LABEJImani 04/10/2020 11:50:00 PM [email or web address] 03/05/2020 02:25:00 PM [facility] Inpatient Attender: GIO RUANO MDAd mitter: GIO RUANO MDConsultant: Drea Marcus MD [facility] 03/01/2020 12:21:00 PM [facility] - 03/08/2020 04:00:00 PM [facility] F1020 Patient discharged. Outpatient Attender: MICAELA HINOJOSA 01/26/2020 12:58:01 PM EDT [facility] Outpatient Attender: MICAELA HINOJOSA 01/26/2020 12:20:07 PM EDT [facility] Outpatient Attender: Jailene ELKINS 01/26/2020 12: 20:04 PM EDT [facility] Outpatient Attender: MICAELA HINOJOSA 01/26/2020 12:14:00 PM EDT [facility] Outpatient Attender: MICAELA HINOJOSA 01/26/2020 12:06:07 PM EDT [facility] Outpatient Attender: MICAELA HINOJOSA 01/10/2020 01:52:00 PM EDT [facility] Immunizations Vaccine Date Status Description Data Source(s) COVID-19 VACCINE July 09/08/2020 12:00:00 AM EDT completed [employer] Vaccine Series Complete: YESThis Data wa s Submitted to [facility] Via [employer]. COVID-19, mRNA, LNP-S, PF, 100 mcg/0.5 mL dose 09/06/2020 12 :00:00 AM EDT completed 09/06/2020 [facility] ([facility]) Medications Medication Brand Name Start Date Product Form Dose Route Admi nistrative Instructions Pharmacy Instructions Status Indications Reaction Description Data Source(s) Cyclobenzaprine hydrochloride 5 MG Oral Tablet cyclobe nzaprine 5 mg tablet cyclobenzaprine 5 mg tablet 10/12/2020 12:00:00 AM EDT completed cyclobenzaprine hydrochloride 5 MG Oral Tablet [facility] ([facility]) paroxetine 10 mg tablet [id number] 05/11/2020 12:00:00 AM EST completed paroxetine hydrochloride 10 MG Oral Tablet [facility] ([facility]) paroxetine 10 mg tablet [id number] 05/11/2020 12:00:00 AM EST completed paroxetine hydrochloride 10 MG Oral Tablet [facility] ([facility]) paroxetine 10 mg tablet [id number] 05/11/2020 12:00:00 AM EST completed paroxetine hydrochloride 10 MG Oral Tablet [facility] ([facility]) paroxetine 10 mg tablet [id number] 05/11/2020 12:00:00 AM EST completed paroxetine hydrochloride 10 MG Oral Tablet VAN ([facility]) Acamprosate calcium 333 MG Delayed Relea se Oral Tablet acamprosate 333 mg tablet,delayed release acamprosate 333 mg tablet,delayed release completed acamprosate calcium 333 MG Delay ed Release Oral Tablet [facility] ([facility]) Trazodone Hydrochloride 50 MG Oral Tablet trazodone 50 mg tablet trazodone 50 mg tablet completed trazodone hydro chloride 50 MG Oral Tablet [facility] ([facility]) Trazodone Hydrochloride 100 MG Oral Tablet trazodone 1 00 mg tablet trazodone 100 mg tablet completed trazodone hy drochloride 100 MG Oral Tablet [facility] ([facility]) Carbamazepine 200 MG Oral Tablet carbamazepine 200 mg tablet carbamazepine 200 mg tablet completed carbamazepin e 200 MG Oral Tablet [facility] ([facility]) Naltrexone hydrochloride 50 MG Oral Tablet naltrexone 50 mg tablet naltrexone 50 mg tablet completed naltrexone h ydrochloride 50 MG Oral Tablet [facility] ([facility]) Trazodone Hydrochloride 100 MG Oral Tablet trazodone 1 00 mg tablet trazodone 100 mg tablet completed trazodone hy drochloride 100 MG Oral Tablet [facility] ([facility]) Trazodone Hydrochloride 50 MG Oral Tablet trazodone 50 mg tablet trazodone 50 mg tablet completed trazodone hydro chloride 50 MG Oral Tablet [facility] ([facility]) Nicotine 4 MG Oral Lozenge nicotine (polacrilex) 4 mg buccal lozenge nicotine (polacrilex) 4 mg buccal lozenge compl eted nicotine 4 MG Oral Lozenge [facility] ([facility]) Trazodone Hydrochloride 50 MG Oral Tablet trazodone 50 mg tablet trazodone 50 mg tablet completed trazodone hydro chloride 50 MG Oral Tablet [facility] ([facility]) Naltrexone 112 MG/ML Injectable Suspensi on [Vivitrol] Vivitrol 380 mg intramuscular suspension,extended release Vivitrol 380 mg intramuscular suspension,extended release completed naltrexone 380 MG Injection [Vivitrol] [facility] ([facility]) Trazodone Hydrochloride 50 MG Oral Tablet trazodone 50 mg tablet trazodone 50 mg tablet completed trazodone hydr ochloride 50 MG Oral Tablet [facility] ([facility]) Trazodone Hydrochloride 100 MG Oral Tablet trazodone 1 00 mg tablet trazodone 100 mg tablet completed trazodone h ydrochloride 100 MG Oral Tablet [facility] ([facility]) Folic Acid 1 MG Oral Tablet folic acid 1 mg tablet folic acid 1 mg ta blet completed folic acid 1 MG Oral Tablet [facility] ([facility]) Trazodone Hydrochloride 100 MG Oral Tablet trazodone 1 00 mg tablet trazodone 100 mg tablet completed trazodone h ydrochloride 100 MG Oral Tablet [facility] ([facility]) Insurance Providers Payer name Policy type / Coverage type Policy ID Covered republican ID Covered republican's relationship to tsai Policy Tsai Plan Information [facility] COMMUNITY PLAN [facility] [id number] SP [id number] [facility]AN [facility] [id number] SP [id number] [facility] COMMUNITY PLAN [facility] [id number] SP [id number] Managed Care - Community Plan [facility] P [id number] S [id number] Medicaid S [id number] S [id number] Managed Care - Community Plan [facility] P [id number] S [id number] Medicaid S [id number] S [id number] [facility] COMMUNITY PL [id number] S [id number] [facility] [address] [id number] S [id number] [facility] Care [facility] Community Plan P [id number] S [id number] [facility] PL [id number] Unknown [id number] Medicaid S [id number] S [id number] Managed Care [facility] Community Plan P [id number] S [id number] [employer] COMMUNITY PLAN MCDHMO [id number] SP [id number] [facility] PL [id number] Unemploye d [id number] [place] [id number] SP [id number] [facility] [id number] SP [id number] [facility](MCAID) O [id number] S [id number] Self Pay P UNAVAILABLE S UNAVAILA BLE [facility] [address] [id number] S [id number] [facility] Care [facility] Community Plan P [id number] S [id number] Managed Care - Community Plan [facility] P [id number] S [id number] [facility](MCAID) O [id number] S [id number] [facility] COMMUNITY [facility] [id number] SP [id number] [facility] Health Maintenance Organization (HMO) [id number] Self SELF PAY UNAVAILABLE SP UNAVAILA BLE Problems, Conditions, and Diagnoses Code Display Name Description Problem Type Effective Dates Data Source(s) Y90.8 Blood alcohol level of 240 mg/100 ml or more BLOOD ALCOHOL LEVEL OF 240 MG/100 ML OR MORE Diagnosis 11/01/2020 07:03:00 PM [facility] F12.10 Cannabis abuse, uncomplicated CANNABIS ABUSE, UNCOMPLI CATED Diagnosis 11/01/2020 07:03:00 PM [facility] G47.00 Insomnia, unspecified INSOMNIA, UNSPECIFIED Diagnosis 11/01/2020 07:03:00 PM [facility] F32.9 Major depressive disorder, single episod e, unspecified MAJOR DEPRESSIVE DISORDER, SINGLE EPISODE, UNSPECIFIED Diagnosis 11/01/2020 07:03:00 PM [facility] 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 THROMBOCYTOPENIA Diagnosis 11/01/2020 07:03:00 PM [facility] J30.2 Other seasonal allergic rhinitis OTHER SEASONAL ALLERGIC RHINITIS Diagnosis 11/01/2020 07:03:00 PM T [facility] F17.210 Nicotine dependence, cigarettes, uncompl icated NICOTINE DEPENDENCE, CIGARETTES, UNCOMPLICATED Diagnosis 11/01/2020 07:03:00 PM EDT [facility] F10.230 Alcohol dependence with withdrawal, unco mplicated ALCOHOL DEPENDENCE WITH WITHDRAWAL, UNCOMPLICATED Diagnosis 11/01/2020 07:03:00 PM EDT [facility] F17.200 Nicotine dependence, unspecified, uncomp licated NICOTINE DEPENDENCE, UNSPECIFIED, UNCOMPLICATED Diagnosis 03/01/2020 12:21:00 PM [facility] G40.509 Epileptic seizures related t o external causes, not intractable, without status epilepticus EPILEPTIC SEIZ REL TO EXTRN CAUSES, NOT NTRCT, W/O STA T EPI Diagnosis 03/01/2020 12:21:00 PM [facility] J30.9 Allergic rhinitis, unspecified ALLERGIC RHINITIS, UNSP ECIFIED Diagnosis 03/01/2020 12:21:00 PM [facility] F41.9 Anxiety disorder, unspecified ANXIETY DISORDER, UNSPEC IFIED Diagnosis 03/01/2020 12:21:00 PM [facility] F10.232 Alcohol dependence with withdrawal with perceptual disturbance ALCOHOL DEPENDENCE W WITHDRAWAL WITH PERCEPTUAL DISTURBANCE Diagnosis 12:21:00 PM [facility] [id number] Epilepsy Epilepsy Problem 05/11/2020 12:00:00 AM PERCY YARBROUGH ([facility]) [id number] 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 Problem 05/11/2020 12:00:00 AM LOURDES YARBROUGH ([facility]) [id number] Insomnia Insomnia Problem 05/11/2020 12:00:00 AM PERCY YARBROUGH ([facility]) [id number] Epilepsy Epilepsy Problem 05/11/2020 12:00:00 AM PERCY YARBROUGH ([facility]) [id number] 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 Problem 05/11/2020 12:00:00 AM LOURDES YARBROUGH ([facility]) [id number] Insomnia Insomnia Problem 05/11/2020 12:00:00 AM PERCY YARBROUGH ([facility]) [id number] Epilepsy Epilepsy Problem 05/11/2020 12:00:00 AM PERCY YARBROUGH ([facility]) [id number] 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 Problem 05/11/2020 12:00:00 AM LOURDES YARBROUGH ([facility]) [id number] Insomnia Insomnia Problem 05/11/2020 12:00:00 AM PERCY YARBROUGH ([facility]) [id number] Epilepsy Epilepsy Problem 05/11/2020 12:00:00 AM PERCY YARBROUGH ([facility]) [id number] 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 Problem 05/11/2020 12:00:00 AM LOURDES YARBROUGH ([facility]) [id number] Insomnia Insomnia Problem 05/11/2020 12:00:00 AM PERCY YARBROUGH ([facility]) V85.1 BMI 23.0-23.9 BMI 23.0-23.9 01/26/2020 12:19:11 PM EDT [facility] [id number] Body measurement finding Body Measurement Finding Prob marc 01/26/2020 12:00:00 AM EDT [facility]NE[facility] ([facility] er) [id number] Body measurement finding Body Measurement Finding Prob marc 01/26/2020 12:00:00 AM EDT [facility] ([facility]) [id number] 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 Status Epilepticus Due to Refractory Epilepsy Problem 09/04/2017 12:00:00 AM EDT - 05/11/2020 12:00:00 AM EST [facility] ([facility] er) [id number] 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 Status Epilepticus Due to Refractory Epilepsy Problem 09/04/2017 12:00:00 AM EDT - 05/11/2020 12:00:00 AM EST [facility] ([facility] er) [id number] 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 Status Epilepticus Due to Refractory Epilepsy Problem 09/04/2017 12:00:00 AM EDT - 05/11/2020 12:00:00 AM EST [facility] ([facility] er) [id number] 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 Status Epilepticus Due to Refractory Epilepsy Problem 09/04/2017 12:00:00 AM EDT - 05/11/2020 12:00:00 AM EST [facility] ([facility]) Surgeries/Procedures Procedure Description Date Indications Data Source(s) Detoxification Services for Substance Abuse Treatment DETOXIFICATION SERVICES FOR SUBSTANCE ABUSE TREATMENT 11/01/2020 12:00:00 AM EDT [facility] Individual Counsel[facility] for Substance [facility], [facility] INDIV SPECIAL EDUCATION PROFESSIONAL FOR SUBSTANCE ABUSE TREATMENT, CONTINUING CARE 03/03/2020 12:00:00 AM [facility] Results ID Date Data Source [id number] 01/10/2021 12:00:[address] [facility] Name Value Range Interpretation Code Description Data Elizabeth rce(s) Supporting Document(s) SARS-CoV2 Rapid Antigen [address] [facility] This lab was ordered by [facility] and r eported by [facility]. ID Date Data Source [id number] 11/04/2020 02:34:00 AM EDT [facility] Name Value Range Interpretation Code Description Data Elizabeth rce(s) Supporting Document(s) Hepatitis A Ab,IgG result Normal (applies to no n-numeric results) [facility] Result indicates immunity to hepatitis A infection from either vaccination or past exposure to hepatitis A. False-positive results may be observed in patients with CMV antibodies or heterophilic antibodies. REFERENCE VALUE Unvaccinated: Negative Vaccinated: Positive Test Performed by: [facility] [place] [address] Shipping And Receiving Weigher: Nadeem Mancia M.D. Ph.D.; CLIA# [id number] ID Date Data Source [id number] 11/03/2020 06:58:00 PM EDT [facility] Name Value Range Interpretation Code Description Data Elizabeth rce(s) Supporting Document(s) Hepatitis A Ab,IgG result Normal (applies to no n-numeric results) [facility] Result indicates immunity to hepatitis A infection from either vaccination or past exposure to hepatitis A. False-positive results may be observed in patients with CMV antibodies or heterophilic antibodies. REFERENCE VALUE Unvaccinated: Negative Vaccinated: Positive Test Performed by: [facility] [address] [place] [address] Shipping And Receiving Weigher: Nadeem Mancia M.D. Ph.D.; IA# [id number] ID Date Data Source [id number] 11/01/2020 08:27:00 PM EDT [facility] Name Value Range Interpretation Code Description Data Elizabeth rce(s) Supporting Document(s) Sodium 140 mmol/L 136-145 Normal (applies to non-numeric resul ts) [facility] Potassium 3.5-5.1 Normal (applies to non-numeric resul ts) [facility] Chloride 97 mmol/L 98-107 Below low normal [facility] spital Carbon Dioxide CO2 21-32 Normal (applies to non-numer ic results) [facility] Anion Gap 5.0-16.0 Normal (applies to non-numeric resul ts) [facility] BUN 9 mg/dL 7-18 Normal (applies to non-numeric results) [facility] Creatinine,Serum 0.8-1.5 Normal (applies to non-numeric results) [facility] GFR >60 Normal (applies to non-numeric results) [facility] Glucose Level 142 mg/dL 60-99 Above high normal [facility] Reference range is only applicable when patient is fasting Note the following drug interference: Sulfasalazine Sulfapyridine Can see falsely depressed Can see falsely elevated result with up to 17% results with up to 11% decrease in measurement increase in measurement Recommend patients be collected for this test prior to administration of either drug. Calcium 8.5-10.1 Below low normal [facility] spital Bilirubin,Total 0.1-1.9 Normal (applies to non-numeric results) [facility] SGOT(AST) 64 U/L 15-37 Above high normal [facility] ospital Note the following drug interference: Sulfasalazine Sulfapyridine Can see falsely depressed Can see falsely elevated result with up to 10% results with up to 10% decrease in measurement increase in measurement Recommend patients be collected for this test prior to administration of either drug. SGPT(ALT) 43 U/L 12-78 Normal (applies to non-numeric resul ts) [facility] Note the following drug interference: Sulfasalazine Sulfapyridine Can see falsely depressed Can see falsely elevated result with up to 29% results with up to 10% decrease in measurement increase in measurement Recommend patients be collected for this test prior to administration of either drug. Alkaline Phosphatase 58 U/L 38-126 Normal (applies to non-num martin results) [facility] can increase Alkaline Phosp le vels up to 2 times the normal adult value. Normal values for children and adolescents are 2 to 3 times the normal adult value. Total Protein 6.0-8.2 Above high normal [facility] Albumin Level 3.4-5.0 Normal (applies to non-numeric re sults) [facility] ID Date Data Source [id number] 11/01/2020 08:27:00 PM EDT [facility] Name Value Range Interpretation Code Description Data Elizabeth rce(s) Supporting Document(s) Bilirubin,Direct 0.05-0.20 Normal (applies to non-numeric results) [facility] ID Date Data Source [id number] 11/01/2020 08:27:00 PM EDT [facility] Value Range Interpretation Code Description Data Elizabeth rce(s) Supporting Document(s) Phosphorus 2.5-4.9 Normal (applies to non-numeric resul ts) [facility] ID Date Data Source [id number] 11/01/2020 08:27:00 PM EDT [facility] Value Range Interpretation Code Description Data Elizabeth rce(s) Supporting Document(s) Magnesium 1.8-2.4 Above high normal [facility] ID Date Data Source [id number] [facility] Interpretation Code Description Data Elizabeth rce(s) Supporting Document(s) Thyroid Stimulate Hormone TSH 0.358-3.74 No rmal (applies to non-numeric results) [facility] ID Date Data Source [id number] 11/02/2020 03:54:00 AM EDT [facility] Value Range Interpretation Code Description Data Elizabeth rce(s) Supporting Document(s) CPK result 131 U/L 39-308 Normal (applies to non-numeric resul ts) [facility] Test Performed By: [facility] [address] [place] [address] Director: Agustin Lawrence MD ID Date Data Source [id number] 11/02/2020 03:54:00 AM EDT [facility] Value Range Interpretation Code Description Data Elizabeth rce(s) Supporting Document(s) Hepatitis C Virus Ab result Nonreactive Norm al (applies to non-numeric results) [facility] Test Performed By: [facility] [address] [place] [address] Director: Agustin Lawrence MD ID Date Data Source [id number] 11/02/2020 03:54:00 AM EDT [facility] Value Range Interpretation Code Description Data Elizabeth rce(s) Supporting Document(s) Hep Bs Ag result T-Test Nonreactive Normal (applies to non -numeric results) [facility] Test Performed By: [facility] [address] [place] [address] Director: Agustin Lawrence MD ID Date Data Source [id number] 11/02/2020 03:54:00 AM EDT [facility] Value Range Interpretation Code Description Data Elizabeth rce(s) Supporting Document(s) Syphilis Serology result Nonreactive Normal (applies to non-numeric results) [facility] Test Performed By: [facility] [address] [place] [address] Director: Agustin Lawrence MD ID Date Data Source [id number] 11/01/2020 08:37:00 PM EDT [facility] Name Value Range Interpretation Code Description Data Elizabeth rce(s) Supporting Document(s) Ethanol Less than 10.0 Above high normal [facility] ID Date Data Source [id number] 11/01/2020 08:02:00 PM EDT [facility] Name Value Range Interpretation Code Description Data Elizabeth rce(s) Supporting Document(s) White Blood Count 3.5-10.5 Normal (applies to non-numeri c results) [facility] Red Blood Count 4.30-5.70 Below low normal [facility] Hemoglobin 13.5-17.5 Normal (applies to non-numeric resul ts) [facility] Hematocrit 38.8-50.0 Normal (applies to non-numeric resul ts) [facility] Mean Corpuscular Volume 81.2-95.1 Above high normal [facility] Mean Corpuscular Hgb 25.6-32.2 Above high normal [facility] Mean Corpuscular Hgb Conc 32.0-36.0 Normal (applies to no n-numeric results) [facility] Red Cell Distribution Width 11.8-15.6 Normal (appli es to non-numeric results) [facility] Platelet Count 108 x10 3/uL 150-450 Below low normal [facility] Mean Platelet Volume 9.4-12.4 Normal (applies to non-num martin results) [facility] Neutrophils% (Auto) 31.0-71.0 Normal (applies to non-nume conchita results) [facility] Lymphocytes% (Auto) 20.0-55.0 Normal (applies to non-nume conchita results) [facility] Monocytes% (Auto) 4.0-12.0 Normal (applies to non-numeri c results) [facility] Eosinophils% (Auto) 1.0-8.0 Normal (applies to non-nume conchita results) [facility] Basophils% (Auto) 0.0-2.0 Normal (applies to non-numeri c results) [facility] Immature Granulocytes% (Auto) 0.0-2.0 Normal (dmitry lies to non-numeric results) [facility] Neutrophils# (Auto) 1.50-6.20 Below low normal [facility] Lymphocytes# (Auto) 1.20-4.00 Normal (applies to non-nume conchita results) [facility] Monocytes# (Auto) 0.00-0.90 Normal (applies to non-numeri c results) [facility] Eosinophils# (Auto) 0.00-0.50 Normal (applies to non-nume conchita results) [facility] Basophils# (Auto) 0.00-0.20 Normal (applies to non-numeri c results) [facility] Immature Granulocytes# (Auto) 0.00-7.00 No rmal (applies to non-numeric results) [facility] ID Date Data Source [id number] 11/04/2020 02:50:00 AM EDT [facility] Name Value Range Interpretation Code Description Data Elizabeth rce(s) Supporting Document(s) Chlamydia,Urine result Negative Normal (applies to non-n umeric results) [facility] Test Performed By: [facility] [address] [place] [address] Director: Agustin Lawrence MD . GC Urine result Negative Normal (applies to non-numeric results) [facility] Test Performed By: [place] [address] Director: Agustin Lawrence MD . Methodology: Second generation nucleic acid amplification. ID Date Data Source [id number] 11/03/2020 04:39:00 PM EDT [facility] Name Value Range Interpretation Code Description Data Elizabeth rce(s) Supporting Document(s) Chlamydia,Urine Negative Normal (applies to non-numeric results) [facility] Test Performed By: [facility] [address] [place] [address] Director: Agustin Lawrence MD . GC Urine Negative Normal (applies to non-numeric resul ts) [facility] Test Performed By: [facility] [address] [place] [address] Director: Agustin Lawrence MD . Methodology: Second generation nucleic acid amplification. ID Date Data Source [id number] 11/01/2020 08:39:00 PM EDT [facility] Collected By: Nurse's Aide Initials: dn Name Value Range Interpretation Code Description Data Elizabeth rce(s) Supporting Document(s) Color,Urine Colorl-Dk Y Normal (applies to non-numeric res ults) [facility] Clarity,Urine Clear Normal (applies to non-numeric re sults) [facility] Specific [place],Urine 1.005-1.030 Normal (applies to non- numeric results) [facility] pH,Urine 5.0-8.0 Normal (applies to non-numeric resul ts) [facility] Protein,Urine Negative Normal (applies to non-numeric re sults) [facility] Glucose,Urine Negative Normal (applies to non-numeric re sults) [facility] Ketones,Urine Negative Normal (applies to non-numeric re sults) [facility] Blood,Urine Negative Normal (applies to non-numeric resu lts) [facility] Bilirubin,Urine Negative Normal (applies to non-numeric results) [facility] Urobilinogen,Urine 0.2-1.0 Normal (applies to non-numer ic results) [facility] Leukocyte Esterase,Urine Negative Normal (applies to non -numeric results) [facility] Nitrite,Urine Negative Normal (applies to non-numeric re sults) [facility] ID Date Data Source [id number] 11/01/2020 08:33:00 PM EDT [facility] Name Value Range Interpretation Code Description Data Elizabeth rce(s) Supporting Document(s) UDS Benzodiazepines Screen Negative Normal (applies to n on-numeric results) [facility] UDS Cocaine Screen Negative Normal (applies to non-numer ic results) [facility] UDS Ampetamine Screen Negative Normal (applies to non-nu meric results) [facility] UDS Cannabinoids Screen Negative Normal (applies to non- numeric results) [facility] UDS Opiates Screen Negative Normal (applies to non-numer ic results) [facility] UDS Barbiturates Screen Negative Normal (applies to non- numeric results) [facility] Threshold Levels Benzodiazepine 200 ng/mL Cocaine 300 ng/mL Amphetamines 1000 ng/mL Cannabinoids (THC) 50 ng/mL Opiates 300 ng/mL Barbiturates 200 ng/mL All positive findings are presumptive and unconfirmed. Confirmation of positive results are performed only at request of provider. Unconfirmed results must not be used for non-medical purposes (i.e. preemployment and legal purposes) ID Date Data Source [id number] 11/02/2020 01:04:00 AM EDT [facility] Value Range Interpretation Code Description Data Elizabeth rce(s) Supporting Document(s) Hep C Ab-T Test Nonreactive Normal (applies to non-numeric results) [facility] Test Performed By: [place] [address] Director: Agustin Lawrence MD ID Date Data Source [id number] 11/02/2020 01:04:00 AM EDT [facility] Value Range Interpretation Code Description Data Elizabeth rce(s) Supporting Document(s) Hep Bs Ag Result T-Test Nonreactive Normal (applies to non -numeric results) [facility] Test Performed By: [place] [address] Director: Agustin Lawrence MD ID Date Data Source [id number] 11/02/2020 01:04:00 AM EDT [facility] Value Range Interpretation Code Description Data Elizabeth rce(s) Supporting Document(s) Syphilis Serology Nonreactive Normal (applies to non-numer ic results) [facility] Test Performed By: [facility] [address] [place] [address] Director: Agustin Lawrence MD ID Date Data Source [id number] 11/01/2020 10:55:00 PM EDT [facility] Value Range Interpretation Code Description Data Elizabeth rce(s) Supporting Document(s) CPK 131 U/L 39-308 Normal (applies to non-numeric resul ts) [facility] Test Performed By: [facility] [address] [place] [address] Director: Agustin Lawrence MD ID Date Data Source [id number] 11/01/2020 04:15:00 PM EDT [facility] Name Value Range Interpretation Code Description Data Elizabeth rce(s) Supporting Document(s) Respiratory specimen severe acute respir atory syndrome coronavirus 2 (SARS-CoV-2) RNA Negative (qualifier value) [facility] This lab was ordered by [facility] and reported by . ID Date Data Source [id number] 11/01/2020 04:47:00 PM EDT [facility] Name Value Range Interpretation Code Description Data Elizabeth rce(s) Supporting Document(s) SARS-CoV-2 RNA Negative Normal (applies to non-numeric r esults) [facility] Negative results should be treated as pr [...] Certificate of Accreditation. Factsheets for healthcare providers: https://www.fda.gov/media/409869/download Factsheets for patients: https://www.fda.gov/media/096155/download The ID NOW Instrument is a rapid molecular in vitro diagnostic test utilizing an isothermal nucleic acid amplification technology intended for the qualitative detection of nucleic acid from the SARS-CoV-2 viral RNA. THIS IS A STATE REPORTABLE COMMUNICABLE DISEASE. Manual entry verified by Lori Morrison 11/01/20 1644 ID Date Data Source [id number] 10/05/2020 04:45:00 PM EDT [facility]) Name Value Range Interpretation Code Description Data Elizabeth rce(s) Supporting Document(s) barbiturates urine negative negative Barbiturates Urin e LINNEA ([facility]) amphetamines level urine negative negative Amphetamine s Level Urine [facility] ([facility]) benzodiazepines urine negative negative Benzodiazepine s Urine [facility] ([facility]) cocaine metabolite urine negative negative Cocaine Met abolite Urine [facility]A ([facility]) methadone urine negative negative Methadone Urine ATHE ([facility]) cannabinoids urine negative negative Cannabinoids Urin e LIN[facility]A ([facility]) opiates urine negative negative Opiates Urine [facility]A ( [facility]) phencyclidine urine negative negative Phencyclidine Ur ine [facility] ([facility]) ID Date Data Source [id number] 10/05/2020 04:11:00 PM EDT [facility] ([facility]) Name Value Range Interpretation Code Description Data Elizabeth rce(s) Supporting Document(s) thyroid stimulating hormone 3.120 uIU/mL 0.358-3.740 Thyroid Stimulating Hormone [facility] ([facility]) ID Date Data Source [id number] 10/05/2020 04:11:00 PM EDT [facility] ([facility]) Name Value Range Interpretation Code Description Data Elizabeth rce(s) Supporting Document(s) acetaminophen level < 2.0 10.0-30.0 Below low normal Acetaminop hen Level [facility] ([facility]) ID Date Data Source [id number] 10/05/2020 04:11:00 PM EDT [facility] ([facility]) Name Value Range Interpretation Code Description Data Elizabeth rce(s) Supporting Document(s) salicylate level 7.9 mg/dL 5.0-30.0 Salicylate Level AT LAUREN ([facility]) ID Date Data Source [id number] 10/05/2020 04:11:00 PM EDT [facility] ([facility]) Name Value Range Interpretation Code Description Data Elizabeth rce(s) Supporting Document(s) ethyl alcohol (ethanol) 0.497 % 0.000-0.010 Above high normal Ethyl Alcohol (Ethanol) [facility] ([facility]) ID Date Data Source [id number] 10/05/2020 04:11:00 PM EDT [facility] ([facility]) Name Value Range Interpretation Code Description Data Elizabeth rce(s) Supporting Document(s) glucose, fasting 108 mg/dL 70-100 Above high normal Glucose, Fas ting [facility] ([facility]) creatinine for GFR 0.65 mg/dL 0.70-1.30 Below low normal Creatinine for GFR [facility] ([facility]) blood urea nitrogen 6 mg/dL 7-18 Below low normal Blood Urea Nitrogen [facility] ([facility]) potassium serum 3.8 mEq/L 3.5-5.1 Potassium Serum ATHE NA ([facility]) sodium level 135 mEq/L 136-145 Below low normal Sodium Level ATHE NA ([facility]) glomerular filtration rate > 60.0 >56 Glomerula r Filtration Rate LINNEA ([facility]) carbon dioxide level 26 mEq/L 21-32 Carbon Dioxide Level [facility] ([facility]) chloride level 98 mEq/L 98-107 Chloride Level [facility] ([facility]) anion gap 11 mEq/L 8-16 Anion Gap [facility] ([facility]) calcium level 8.6 mg/dL 8.5-10.1 Calcium Level [facility] ( [facility]) ID Date Data Source [id number] 10/05/2020 04:11:00 PM EDT [facility] ([facility]) Name Value Range Interpretation Code Description Data Elizabeth rce(s) Supporting Document(s) AST/SGOT 36 U/L 7-37 AST/SGOT [facility] ([facility]) ALT/SGPT 27 U/L 12-78 ALT/SGPT [facility] ([facility]) bilirubin,direct 0.2 mg/dL 0.0-0.2 Bilirubin,direct AT LAUREN ([facility]) alkaline phosphatase 56 U/L 45-117 Alkaline Phosph atase [facility] ([facility]) bilirubin,total 0.4 mg/dL 0.2-1.0 Bilirubin,total ATHE NA ([facility]) albumin/globulin ratio Albumin/globu maik Ratio LIN[facility]A ([facility]) albumin 4.1 gm/dL 3.2-5.2 Albumin [facility] ([facility]) total protein 8.3 gm/dL 6.4-8.2 Above high normal Total Protein A THEN ([facility]) ID Date Data Source [id number] 10/05/2020 04:11:00 PM EDT [facility] ([facility]) Name Value Range Interpretation Code Description Data Elizabeth rce(s) Supporting Document(s) white blood count 7.2 10 4.0-10.0 White Blood Count [facility] ([facility]) red blood count 4.21 10 4.30-6.10 Below low normal Red Blood Coun t LINNEA ([facility]) hemoglobin 13.9 g/dL 13.5-17.5 Hemoglobin [facility]A ([facility]) hematocrit 41.0 % 42.0-52.0 Below low normal Hematocrit LIN[facility]A ( [facility]) mean corpuscular volume 97.4 fL 80.0-96.0 Above high normal Mean Corpuscular Volume LINNEA ([facility]) mean corpuscular hemoglobin 33.0 pg 27.0-33.0 Mean Cor puscular Hemoglobin [facility]A ([facility]) mean corpuscular HGB conc 33.9 g/dL 32.0-36.5 Mean Corpu scular HGB Conc LIN[facility]A ([facility]) red cell distribution width 12.7 % 11.5-14.5 Red Cell Distribution Width [facility] ([facility]) nucleated red blood cell % 0.0 % 0-0 Nucleated Red Blood Cell % [facility] ([facility]) platelet count, automated 179 10 150-450 Platelet C ount, Automated [facility]A ([facility]) ID Date Data Source [id number] 10/05/2020 04:05:00 PM EDT [facility] Name Value Range Interpretation Code Description Data Elizabeth rce(s) Supporting Document(s) SARS coronavirus 2 RNA [Presence] in Res piratory specimen by MADDY with probe detection NEGATIVE [facility] This lab was ordered by [facility] a nd reported by [facility]. ID Date Data Source [id number] 10/05/2020 04:05:00 PM EDT [facility] ([facility]) Name Value Range Interpretation Code Description Data Elizabeth rce(s) Supporting Document(s) influenza B amplification negative negative Influenza B Amplification [facility] ([facility]) influenza A amplification negative negative Influenza a Amplification [facility] ([facility]) RSV amplification negative negative RSV Amplification [facility] ([facility]) sars covid-19 amplification negative negative Sars Cov id-19 Amplification [facility] ([facility]) ID Date Data Source [id number] 09/08/2020 10:42:00 AM EDT [facility]) Name Value Range Interpretation Code Description Data Elizabeth rce(s) Supporting Document(s) Urea nitrogen [Mass/volume] in Serum or Plasma 5 mg/dL 7-25 Below low normal Urea Nitrogen (BUN) [facility] ([facility]) Glucose [Mass/volume] in Serum or Plasma 84 mg/dL 65-99 Glucose [facility] ([facility]) Creatinine [Mass/volume] in Serum or Plasma 0.68 mg/dL 0.70 -1.33 Below low normal Creatinine [facility] ([facility]) Glomerular filtration rate/1.73 sq M.pre dicted among blacks [Volume Rate/Area] in Serum, Plasma or Blood by Creatinine-based formula (CKD-EPI) 124 mL/min/1.73m2 > or = 60 eGFR [facility] ([facility]) Glomerular filtration rate/1.73 sq M.pre dicted among non-blacks [Volume Rate/Area] in Serum, Plasma or Blood by Creatinine-based formula (CKD-EPI) 107 mL/min/1.73m2 > or = 60 eGFR Non-afr. Samoan LINNEA ([facility]) Urea nitrogen/Creatinine [Mass Ratio] in Serum or Plasma 7 (calc) 6-22 BUN/creatinine Ratio [facility] ([facility]) Chloride [Moles/volume] in Serum or Plasma 102 mmol/L 98-110 Chloride LIN[facility]A ([facility]) Sodium [Moles/volume] in Serum or Plasma 141 mmol/L 135-146 Sodium LIN[facility]A ([facility]) Potassium [Moles/volume] in Serum or Plasma 4.6 mmol/L 3.5-5.3 Potassium [facility]A ([facility]) Carbon dioxide, total [Moles/volume] in Serum or Plasma 20 mmol/L 20-32 Carbon Dioxide LIN[facility]A ([facility]) Calcium [Mass/volume] in Serum or Plasma 8.6 mg/dL 8.6-10.3 Calcium [facility]A ([facility]) Protein [Mass/volume] in Serum or Plasma 7.8 g/dL 6.1-8.1 [facility], [facility] Albumin/Globulin [Mass Ratio] in Serum or Plasma 1.3 (calc) 1.0-2 .5 Albumin/globulin Ratio [facility] ([facility]) Albumin [Mass/volume] in Serum or Plasma 4.4 g/dL 3.6-5.1 Albumin LIN[facility]A ([facility]) Globulin [Mass/volume] in Serum by calculation 3.4 g/dL_(calc) 1.9- 3.7 Globulin [facility]A ([facility]) Alkaline phosphatase [Enzymatic activity/volume] in Serum or Plasma 55 U/L 35-144 Alkaline Phosphatase [facility]A ([facility]) Aspartate aminotransferase [Enzymatic activity/volume] in Serum or Plasma 50 U/L 10-35 Above high normal Ast [facility]A ([facility]) Bilirubin.total [Mass/volume] in Serum or Plasma 0.3 mg/dL 0.2-1 .2 Bilirubin, Total [facility]A ([facility]) Alanine aminotransferase [Enzymatic activity/volume] in Seru m or Plasma 36 U/L 9-46 Alt [facility] ([facility]) ID Date Data Source [id number] 09/08/2020 10:42:00 AM EDT [facility] ([facility]) Name Value Range Interpretation Code Description Data Elizabeth rce(s) Supporting Document(s) Cholesterol [Mass/volume] in Serum or Plasma 251 mg/dL <200 Above high normal Cholesterol, Total [facility] ([facility]) Cholesterol in HDL [Mass/volume] in Serum or Plasma 116 mg/dL > or = 40 HDL Cholesterol [facility] ([facility]) Cholesterol.total/Cholesterol in HDL [Mass Ratio] in Serum o r Plasma 2.2 calc <5.0 Chol/hdlc Ratio LIN[facility]A ([facility]) Triglyceride [Mass/volume] in Serum or Plasma 65 mg/dL <150 Triglycerides LINNEA ([facility]) Cholesterol non HDL [Mass/volume] in Serum or Plasma 135 mg/dL_( calc) <130 Above high normal Non HDL Cholesterol [facility]A ([facility]) Cholesterol in LDL [Mass/volume] in Serum or Plasma by calculation 119 mg/dL_(calc) <100 Above high normal LDL-cholesterol LIN[facility] ([facility]) Lipoprotein.alpha 3 [Moles/volume] in Serum 170 nmol/L <215 LDL Medium LIN[facility] ([facility]) Lipoprotein.beta.subparticle [Moles/volume] in Serum or Plas ma 1138 nmol/L <1138 Above high normal LDL Particle Number [facility]A ([facility]) Lipoprotein.beta.subparticle.small [Moles/volume] in Serum o r Plasma 177 nmol/L <142 Above high normal LDL Small LINNEA ([facility]) Lipoprotein.alpha.subparticle.large [Moles/volume] in Serum or Plasma 9929 nmol/L >6729 HDL Large [facility] ([facility]) Lipoprotein.beta.subparticle [Entitic length] in Serum or Pl asma 228.6 angstrom >222.9 LDL Peak Size LIN[facility]A ([facility]) Cholesterol in LDL real size pattern [Identifier] in Serum or Plasm a A A LDL Pattern [facility] ([facility]) Apolipoprotein B [Mass/volume] in Serum or Plasma 83 mg/dL Apolipoprotein B [facility] ([facility]) Lipoprotein a [Moles/volume] in Serum or Plasma <10 <75 Lipoprotein (a) [facility] ([facility]) ID Date Data Source [id number] 09/08/2020 10:42:00 AM EDT [facility]) Name Value Range Interpretation Code Description Data Elizabeth rce(s) Supporting Document(s) Triiodothyronine resin uptake (T3RU) in Serum or Plasma 33 % 22 -35 T3 Uptake LINNEA ([facility]) Thyroxine (T4) free index in Serum or Plasma by calculation 1.4-3.8 Free T4 Index (T7) [facility] ([facility]) Thyroxine (T4) [Mass/volume] in Serum or Plasma 6.3 mcg/dL 4.9-10 .5 T4 (Thyroxine), Total LINNEA ([facility]) Thyrotropin [Units/volume] in Serum or Plasma 2.28 mIU/L 0.40-4.50 Tsh [facility]) ID Date Data Source [id number] 03/06/2020 03:06:00 AM [facility] Name Value Range Interpretation Code Description Data Elizabeth rce(s) Supporting Document(s) Carbamazepine (Tegretol) 4.0-12.0 Normal (applies to non -numeric results) [facility] Test Performed By: [facility] [address] [place] [address] Director: Agustin Lawrence MD ID Date Data Source [id number] 03/06/2020 07:49:00 AM [facility] Name Value Range Interpretation Code Description Data Elizabeth rce(s) Supporting Document(s) Carbamazepine result 4.0-12.0 Normal (applies to non-num martin results) [facility] Test Performed By: [facility] [address] [place] [address] Director: Agustin Lawrence MD ID Date Data Source [id number] 03/05/2020 07:55:00 AM EST [facility] Name Value Range Interpretation Code Description Data Elizabeth rce(s) Supporting Document(s) Sodium 137 mmol/L 136-145 Normal (applies to non-numeric resul ts) [facility] Potassium 3.5-5.1 Normal (applies to non-numeric resul ts) [facility] Chloride 99 mmol/L 98-107 Normal (applies to non-numeric resul ts) [facility] Carbon Dioxide CO2 21-32 Normal (applies to non-numer ic results) [facility] Anion Gap 5.0-16.0 Normal (applies to non-numeric resul ts) [facility] BUN 14 mg/dL 7-18 Normal (applies to non-numeric results) [facility] Creatinine,Serum 0.8-1.5 Below low normal [facility] GFR >60 Normal (applies to non-numeric results) [facility] Glucose Level 91 mg/dL 60-99 Normal (applies to non-numeric re sults) [facility] Reference range is only applicable when patient is fasting Note the following drug interference: Sulfasalazine Sulfapyridine Can see falsely depressed Can see falsely elevated result with up to 17% results with up to 11% decrease in measurement increase in measurement Recommend patients be collected for this test prior to administration of either drug. Calcium 8.5-10.1 Normal (applies to non-numeric resul ts) [facility] Bilirubin,Total 0.1-1.9 Normal (applies to non-numeric results) [facility] SGOT(AST) 15 U/L 15-37 Normal (applies to non-numeric resul ts) [facility] Note the following drug interference: Sulfasalazine Sulfapyridine Can see falsely depressed Can see falsely elevated result with up to 10% results with up to 10% decrease in measurement increase in measurement Recommend patients be collected for this test prior to administration of either drug. SGPT(ALT) 16 U/L 12-78 Normal (applies to non-numeric resul ts) [facility] Note the following drug interference: Sulfasalazine Sulfapyridine Can see falsely depressed Can see falsely elevated result with up to 29% results with up to 10% decrease in measurement increase in measurement Recommend patients be collected for this test prior to administration of either drug. Alkaline Phosphatase 45 U/L 38-126 Normal (applies to non-num martin results) [facility] can increase Alkaline Phosp le vels up to 2 times the normal adult value. Normal values for children and adolescents are 2 to 3 times the normal adult value. Total Protein 6.0-8.2 Normal (applies to non-numeric re sults) [facility] Albumin Level 3.4-5.0 Below low normal [facility] ID Date Data Source [id number] 11/22/2020 02:25:00 PM EDT [facility] Name Value Range Interpretation Code Description Data Elizabeth rce(s) Supporting Document(s) CPK result Normal (applies to non-numeric results) [facility] ID Date Data Source [id number] 11/22/2020 02:25:00 PM [facility] Value Range Interpretation Code Description Data Elizabeth rce(s) Supporting Document(s) Hepatitis C Virus Ab result Normal (applies to non-numeric results) [facility] ID Date Data Source [id number] 11/22/2020 02:25:00 PM T [facility] Value Range Interpretation Code Description Data Elizabeth rce(s) Supporting Document(s) Hep Bs Ag result T-Test Normal (applies to non- numeric results) [facility] TESTS MISSED BY [facility] DURING CYBER ATTACK/ DOWNTIME ID Date Data Source [id number] 03/17/2020 08:36:00 AM EST [facility] Value Range Interpretation Code Description Data Elizabeth rce(s) Supporting Document(s) Color,Urine Colorl-Dk Y Normal (applies to non-numeric res ults) [facility] Clarity,Urine Clear Normal (applies to non-numeric re sults) [facility] Specific [place],Urine 1.005-1.030 Normal (applies to non- numeric results) [facility] pH,Urine 5.0-8.0 Normal (applies to non-numeric resul ts) [facility] Protein,Urine Negative Normal (applies to non-numeric re sults) [facility] Glucose,Urine Negative Normal (applies to non-numeric re sults) [facility] Ketones,Urine Negative Normal (applies to non-numeric re sults) [facility] Blood,Urine Negative Normal (applies to non-numeric resu lts) [facility] Bilirubin,Urine Negative Normal (applies to non-numeric results) [facility] Urobilinogen,Urine 0.2-1.0 Normal (applies to non-numer ic results) [facility] Leukocyte Esterase,Urine Negative Normal (applies to non -numeric results) [facility] Nitrite,Urine Negative Normal (applies to non-numeric re sults) [facility] ID Date Data Source [id number] 03/17/2020 08:35:00 AM EST [facility] Name Value Range Interpretation Code Description Data Elizabeth rce(s) Supporting Document(s) UDS Benzodiazepines Screen Negative Normal (applies to n on-numeric results) [facility] UDS Cocaine Screen Negative Normal (applies to non-numer ic results) [facility] UDS Ampetamine Screen Negative Normal (applies to non-nu meric results) [facility] UDS Cannabinoids Screen Negative [facility] UDS Opiates Screen Negative Normal (applies to non-numer ic results) [facility] UDS Barbiturates Screen Negative Normal (applies to non- numeric results) [facility] ID Date Data Source [id number] 03/17/2020 08:34:00 AM EST [facility] Name Value Range Interpretation Code Description Data Elizabeth rce(s) Supporting Document(s) Sodium 138 mmol/L 136-145 Normal (applies to non-numeric resul ts) [facility] Potassium 3.5-5.1 Normal (applies to non-numeric resul ts) [facility] Chloride 99 mmol/L 98-107 Normal (applies to non-numeric resul ts) [facility] Carbon Dioxide CO2 21-32 Normal (applies to non-numer ic results) [facility] Anion Gap 5.0-16.0 Normal (applies to non-numeric resul ts) [facility] BUN 9 mg/dL 7-18 Normal (applies to non-numeric results) [facility] Creatinine,Serum 0.8-1.5 Normal (applies to non-numeric results) [facility] GFR >60 Normal (applies to non-numeric results) [facility] Glucose Level 121 mg/dL 60-99 Above high normal [facility] Reference range is only applicable when patient is fasting Note the following drug interference: Sulfasalazine Sulfapyridine Can see falsely depressed Can see falsely elevated result with up to 17% results with up to 11% decrease in measurement increase in measurement Recommend patients be collected for this test prior to administration of either drug. Calcium 8.5-10.1 Below low normal [facility] Bilirubin,Total 0.1-1.9 Normal (applies to non-numeric results) [facility] SGOT(AST) 28 U/L 15-37 Normal (applies to non-numeric resul ts) [facility] Note the following drug interference: Sulfasalazine Sulfapyridine Can see falsely depressed Can see falsely elevated result with up to 10% results with up to 10% decrease in measurement increase in measurement Recommend patients be collected for this test prior to administration of either drug. SGPT(ALT) 24 U/L 12-78 Normal (applies to non-numeric resul ts) [facility] Note the following drug interference: Sulfasalazine Sulfapyridine Can see falsely depressed Can see falsely elevated result with up to 29% results with up to 10% decrease in measurement increase in measurement Recommend patients be collected for this test prior to administration of either drug. Alkaline Phosphatase 64 U/L 38-126 Normal (applies to non-num martin results) [facility] can increase Alkaline Phosp le vels up to 2 times the normal adult value. Normal values for children and adolescents are 2 to 3 times the normal adult value. Total Protein 6.0-8.2 Normal (applies to non-numeric re sults) [facility] Albumin Level 3.4-5.0 Below low normal [facility] ID Date Data Source [id number] 03/17/2020 08:34:00 AM EST [facility] Name Value Range Interpretation Code Description Data Elizabeth rce(s) Supporting Document(s) Bilirubin,Direct 0.05-0.20 Normal (applies to non-numeric results) [facility] ID Date Data Source [id number] 03/17/2020 08:34:00 AM [facility] Name Value Range Interpretation Code Description Data Elizabeth rce(s) Supporting Document(s) Thyroid Stimulate Hormone TSH 0.358-3.74 No rmal (applies to non-numeric results) [facility] ID Date Data Source [id number] 03/17/2020 08:31:00 AM [facility] Name Value Range Interpretation Code Description Data Elizabeth rce(s) Supporting Document(s) White Blood Count 3.5-10.5 Normal (applies to non-numeri c results) [facility] Red Blood Count 4.30-5.70 Below low normal [facility] Hemoglobin 13.5-17.5 Below low normal [facility] ospital Hematocrit 38.8-50.0 Normal (applies to non-numeric resul ts) [facility] Mean Corpuscular Volume 81.2-95.1 Above high normal [facility] Mean Corpuscular Hgb 25.6-32.2 Above high normal [facility] Mean Corpuscular Hgb Conc 32.0-36.0 Normal (applies to no n-numeric results) [facility] Red Cell Distribution Width 11.8-15.6 Normal (appli es to non-numeric results) [facility] Platelet Count 165 x10 3/uL 150-450 Normal (applies to non-numeric results) [facility] Mean Platelet Volume 9.4-12.4 Normal (applies to non-num martin results) [facility] Neutrophils% (Auto) 31.0-71.0 Normal (applies to non-nume conchita results) [facility] Lymphocytes% (Auto) 20.0-55.0 Below low normal [facility] Monocytes% (Auto) 4.0-12.0 Normal (applies to non-numeri c results) [facility] Eosinophils% (Auto) 1.0-8.0 Above high normal [facility] Basophils% (Auto) 0.0-2.0 Normal (applies to non-numeri c results) [facility] Immature Granulocytes% (Auto) 0.0-2.0 Normal (dmitry lies to non-numeric results) [facility] Neutrophils# (Auto) 1.50-6.20 Normal (applies to non-nume conchita results) [facility] Lymphocytes# (Auto) 1.20-4.00 Below low normal [facility] Monocytes# (Auto) 0.00-0.90 Normal (applies to non-numeri c results) [facility] Eosinophils# (Auto) 0.00-0.50 Above high normal [facility] Basophils# (Auto) 0.00-0.20 Normal (applies to non-numeri c results) [facility] Immature Granulocytes# (Auto) 0.00-7.00 No rmal (applies to non-numeric results) [facility] ID Date Data Source [id number] 01/26/2020 11:41:11 AM EDT [facility] Measurements & CalculationsHeight: 68 inches (5 [...] diagnosed with seizures 2.5 yrs ago at [facility]. 01/24/2020 on Mond ay was worst one. [...] program was about 1.5 yrs ago at [place], has detoxed 4 times for alcohol total. Pt has attended rehab at [facility] and [facility] previously. Currently with [facility], talks to [facility] once a week, next appointment is tomorrow. They suggested he meet with mental health there, he is considering this. Doesn't drive or "even ride a bike". Receives Vivitrol through [employer] monthly. Naltrexone as well that he takes twice daily prior to injections, but admits to not taking right now. Transitions of Care InboundProblem ReviewProblem List was reviewed and/or updated during this visit.Medication Reconciliation & ReviewMedication List was reviewed and/or updated during this visit, including review of any haqi-gih-yphhpmm medications, herbal therapies, and/or supplements.Allergy ReviewAllergy List [...] risk of alcohol with seizures.Alcohol abuse (ICD-305.00) (NBR56-U09.10) Assessment: Instructions: Continue with [facility], consider more aggressive treatment like rehab or detox.Low back pain (ICD-724.2) (HMT00-R53.5) Assessment: Instructions: Supportive measures: heat/ice, gentle stretching, consider physical therapy. No muscle relaxers due to alcohol intake.Spasm of back muscles (ICD-724.8) (KZI76-W88.830) Assessment: Instructions: As above.Allergic rhinitis (ICD-477.9) (ICD10- J30.9) Assessment: Instructions: Refilled allergy medication and ventolin inhaler.Removed:Acute frontal sinusitis, unspecified (HPH09-H76.10)Patient In structions/Care Plan: Other epilepsy- intractable- with [...] HFA 108 (90 BASE) MCG/ACT INHALATION AEROSOL LRSWVZAO-3-4 puffs q 4-6 hours prn wheezing Qty: [...] ZYRTEC ALLERGY 10 MG ORAL TABLET Qty: [id number] Refills: 90[Tablet] To: ZYRTEC ALLERGY 10 MG ORAL TABLET-1 tab po daily Qty: 90[Tablet] Refills: 0 To: FLONASE ALLERGY RELIEF 50 MCG/ACT NASAL SUSPENSION-one spray/nostril QD Qty: 3[Container] Refills: 0From: ORAL SINGULAIR 10 MG ORAL TABLET Qty: [id number] Refills: 90[Tablet] To: SINGULAIR 10 MG ORAL TABLET-1 tab po at bedtime Qty: 90[Tablet] Refills: 0Allergies:* SEASONAL (Critical)Orders:Neurology Consult [CPT-31646] Adult - Ofc Vst, EST, Level IV [CPT-32835] Follow-Up Return to clinic: in 30 days for preventive care visitAdditional Follow-Up: annual PE with Dr. Cifuentesinical Visit Summary Completed Name Value Range Interpretation Code Description Data Elizabeth rce(s) Supporting Document(s) Procedure Social History No Information Vital Signs ID Date Data Source UNK Name Value Range Interpretation Code Description Data Source(s) Diastolic blood pressure 76 mm[Hg] 76 mm[Hg] LINNEA ([facility]) Body height 68 [in_i] 68 [in_i] LINNEA ([facility]) Body mass index (BMI) [Ratio] 24.3 kg/m2 24.3 k g/m2 LINNEA ([facility]) Systolic blood pressure 111 mm[Hg] 111 mm[Hg] A LUIS ANTONIO ([facility]) Body weight 2552 [oz_av] 2552 [oz_av] LINNEA ([facility]) Body height 68 [in_i] 68 [in_i] LINNEA ([facility]) Body height 68 [in_i] 68 [in_i] LINNEA ([facility]) Body mass index (BMI) [Ratio] 24.9 kg/m2 24.9 k g/m2 LINNEA ([facility]) Systolic blood pressure 119 mm[Hg] 119 mm[Hg] A LUIS ANTONIOA ([facility]) Body weight 2624 [oz_av] 2624 [oz_av] LINNEA ([facility]) Diastolic blood pressure 80 mm[Hg] 80 mm[Hg] LINNEA ([facility]) Body height 68 [in_i] 68 [in_i] LINNEA ([facility]) Diastolic blood pressure 80 mm[Hg] 80 mm[Hg] LINNEA ([facility]) Body height 68 [in_i] 68 [in_i] LINNEA ([facility]) Body mass index (BMI) [Ratio] 24.9 kg/m2 24.9 k g/m2 LINNEA ([facility]) Systolic blood pressure 119 mm[Hg] 119 mm[Hg] A THENA ([facility]) Body weight 2624 [oz_av] 2624 [oz_av] LINNEA ([facility]) Diastolic blood pressure 80 mm[Hg] 80 mm[Hg] LINNEA ([facility]) Body height 68 [in_i] 68 [in_i] LINNEA ([facility]) Body mass index (BMI) [Ratio] 24.9 kg/m2 24.9 k g/m2 LINNEA ([facility]) Systolic blood pressure 119 mm[Hg] 119 mm[Hg] A THENA ([facility]) Body weight 2624 [oz_av] 2624 [oz_av] LINNEA ([facility]) Diastolic blood pressure 80 mm[Hg] 80 mm[Hg] LINNEA ([facility]) Body height 68 [in_i] 68 [in_i] LINNEA ([facility]) Body mass index (BMI) [Ratio] 24.9 kg/m2 24.9 k g/m2 LINNEA ([facility]) Systolic blood pressure 119 mm[Hg] 119 mm[Hg] A THENA ([facility]) Body weight 2624 [oz_av] 2624 [oz_av] LINNEA ([facility]) Diastolic blood pressure 87 mm[Hg] 87 mm[Hg] LINNEA ([facility]) Body height 68 [in_i] 68 [in_i] LINNEA ([facility]) Body mass index (BMI) [Ratio] 23.81 kg/m2 23.81 kg/m2 LINNEA ([facility]) Systolic blood pressure 125 mm[Hg] 125 mm[Hg] A THENA ([facility]) Body weight 2496 [oz_av] 2496 [oz_av] LINNEA ([facility]) Diastolic blood pressure 87 mm[Hg] 87 mm[Hg] LINNEA ([facility]) Body height 68 [in_i] 68 [in_i] LINNEA ([facility]) Body mass index (BMI) [Ratio] 23.81 kg/m2 23.81 kg/m2 LINNEA ([facility]) Systolic blood pressure 125 mm[Hg] 125 mm[Hg] A SCOTT ([facility]) Body weight 2496 [oz_av] 2496 [oz_av] LINNEA ([facility]) ID Date Data Source [id number] 11/03/2020 06:58:00 PM EDT [facility] Name Value Range Interpretation Code Description Data Source(s) Weight (Calculated Kilograms) 78.02 78.02 [facility] Height (Calculated Centimeters) 172.72 172. 72 [facility] Body Mass Index (BMI) [address] [facility] ID Date Data Source [id number] 11/06/2020 06:37:00 AM EDT [facility] Name Value Range Interpretation Code Description Data Source(s) Weight (Calculated Kilograms) 68.67 68.67 [facility] Weight 2422.4 2422.4 [facility] pital Temperature Source 7 7 [facility] Temperature 97.6 97.6 [facility] Respiratory Effort 1 1 [facility] Respiratory Rate 18 18 [facility] Pulse Assessment Method 4 4 [facility] Pulse [facility] 68 68 [facility] Height (Calculated Centimeters) 172.72 172. 72 [facility] Height 68 68 [facility] Blood Pressure 122/68 122/68 [facility] Body Mass Index (BMI) 23.0 23.0 [facility] Weight (Calculated Kilograms) 68.67 68.67 [facility] Weight 2422.4 2422.4 [facility] pital Temperature Source 7 7 [facility] Temperature 97.6 97.6 [facility] Respiratory Effort 1 1 [facility] Respiratory Rate 18 18 [facility] Pulse Assessment Method 4 4 [facility] Pulse Rate 68 68 [facility] pital Height (Calculated Centimeters) 172.72 172. 72 [facility] Height 68 68 [facility] Blood Pressure 122/68 122/68 [facility] Body Mass Index (BMI) 23.0 23.0 [facility] Weight (Calculated Kilograms) 68.67 68.67 [facility] Weight 2422.4 2422.4 [facility] pital Temperature Source 7 7 [facility] Temperature 97.6 97.6 [facility] sp[facility] Respiratory Effort 1 1 [facility] Respiratory Rate 18 18 [facility] Pulse Assessment Method 4 4 [facility] Pulse Rate 68 68 [facility] pital Height (Calculated Centimeters) 172.72 172. 72 [facility] Height 68 68 [facility] pital Blood Pressure 122/68 122/68 [facility] Body Mass Index (BMI) 23.0 23.0 [facility] Weight (Calculated Kilograms) 68.67 68.67 [facility] Weight 2422.4 2422.4 [facility] pital Temperature Source 7 7 [facility] Temperature 97.1 97.1 [facility] Respiratory Effort 1 1 [facility] Respiratory Rate 18 18 [facility] Pulse Assessment Method 4 4 [facility] Pulse Rate 86 86 [facility] pital Height (Calculated Centimeters) 172.72 172. 72 [facility] Height 68 68 [facility] pital Blood Pressure 114/78 114/78 [facility] Body Mass Index (BMI) 23.0 23.0 [facility] Weight (Calculated Kilograms) 68.67 68.67 [facility] Weight 2422.4 2422.4 [facility] pital Temperature Source 3 3 [facility] Temperature 97.7 97.7 [facility] Respiratory Effort 1 1 [facility] Respiratory Rate 18 18 [facility] Pulse Assessment Method 4 4 [facility] Pulse Rate 80 80 [facility] pital Height (Calculated Centimeters) 172.72 172. 72 [facility] Height 68 68 [facility] pital Blood Pressure 138/85 138/85 [facility] Body Mass Index (BMI) 23.0 23.0 [facility] Weight (Calculated Kilograms) 68.67 68.67 [facility] Weight 2422.4 2422.4 [facility] pital Temperature 97.1 97.1 [facility] sp[facility] Respiratory Effort 1 1 [facility] Respiratory Rate 18 18 [facility] Pulse Rate 90 90 [facility] Height (Calculated Centimeters) 172.72 172. 72 [facility] Height 68 68 [facility] Blood Pressure 141/92 141/92 [facility] Body Mass Index (BMI) 23.0 23.0 [facility] Weight (Calculated Kilograms) 74.84 74.84 [facility] Height (Calculated Centimeters) 177.8 177. 8 [facility] Body Mass Index (BMI) 23.6 23.6 [facility] ID Date Data Source [id number] 11/02/2020 12:05:00 AM EDT [facility] Name Value Range Interpretation Code Description Data Source(s) Weight (Calculated Kilograms) 74.84 74.84 [facility] Height (Calculated Centimeters) 177.8 177. 8 [facility] Body Mass Index (BMI) 23.6 23.6 [facility] ID Date Data Source [id number] 04/10/2020 11:50:00 PM [facility] Name Value Range Interpretation Code Description Data Source(s) Weight (Calculated Kilograms) 78.02 78.02 [facility] Height (Calculated Centimeters) 172.72 172. 72 [facility] Body Mass Index (BMI) [address] [facility] ID Date Data Source [id number] 11/22/2020 02:25:00 PM EDT [facility] spital Name Value Range Interpretation Code Description Data Source(s) Weight (Calculated Kilograms) 74.84 74.84 [facility] Weight 2528 2528 [facility] pital Temperature Source 7 7 [facility] Temperature 98.1 98.1 [facility] spital Respiratory Effort 1 1 [facility] Respiratory Rate 16 16 [facility] Pulse Assessment Method 4 4 [facility] Pulse Rate 70 70 [facility] pital Height (Calculated Centimeters) 177.8 177. 8 [facility] Height 68 68 [facility] pital Blood Pressure 100/65 100/65 [facility] Body Mass Index (BMI) 23.6 23.6 [facility] Weight (Calculated Kilograms) 74.84 74.84 [facility] Weight 2528 2528 [facility] pital Temperature Source 7 7 [facility] Temperature 98.1 98.1 [facility] spital Respiratory Effort 1 1 [facility] Respiratory Rate 16 16 [facility] Pulse Assessment Method 4 4 [facility] Pulse Rate 70 70 [facility] pital Height (Calculated Centimeters) 177.8 177. 8 [facility] Height 68 68 [facility] pital Blood Pressure 100/65 100/65 [facility] Body Mass Index (BMI) 23.6 23.6 [facility] Weight (Calculated Kilograms) 74.84 74.84 [facility] Weight 2528 2528 [facility] pital Temperature Source 7 7 [facility] Temperature 98.1 98.1 [facility] Respiratory Effort 1 1 [facility] Respiratory Rate 16 16 [facility] Pulse Assessment Method 4 4 [facility] Pulse Rate 70 70 [facility] pital Height (Calculated Centimeters) 177.8 177. 8 [facility]/65 100/65 [facility] Body Mass Index (BMI) 23.6 23.6 [facility] Weight (Calculated Kilograms) 74.84 74.84 [facility] Weight 2528 2528 [facility] pital Temperature Source 7 7 [facility] Temperature 98.1 98.1 [facility] spital Respiratory Effort 1 1 [facility] Respiratory Rate 16 16 [facility] Pulse Assessment Method 4 4 [facility] Pulse Rate 70 70 [facility] pital Height (Calculated Centimeters) 177.8 177. 8 [facility] Height 68 68 [facility] pital Blood Pressure 100/65 100/65 [facility] Body Mass Index (BMI) 23.6 23.6 [facility] Weight (Calculated Kilograms) 74.84 74.84 [facility] Temperature Source 7 7 [facility] Temperature 97.9 97.9 [facility] spital Respiratory Effort 1 1 [facility] Respiratory Rate 18 18 [facility] Pulse Assessment Method 4 4 [facility] Pulse Rate 77 77 [facility] pital Height (Calculated Centimeters) 177.8 177. 8 [facility] Blood Pressure 128/79 128/79 [facility] Body Mass Index (BMI) 23.6 23.6 [facility] Weight (Calculated Kilograms) 74.84 74.84 [facility] Temperature Source 7 7 [facility] Temperature 97.9 97.9 [facility] spital Respiratory Effort 1 1 [facility] Respiratory Rate 18 18 [facility] Pulse Assessment Method 4 4 [facility] Pulse Rate 77 77 [facility] Height (Calculated Centimeters) 177.8 177. 8 [facility] Blood Pressure 128/79 128/79 [facility] Body Mass Index (BMI) 23.[address] [place] [address] Weight (Calculated Kilograms) 74.84 74.84 [facility] Temperature Source 7 7 [facility] Temperature 97.9 97.9 [facility] spital Respiratory Effort 1 1 [facility] Respiratory Rate 16 16 [facility] Pulse Assessment Method 4 4 [facility] Pulse Rate 85 85 [facility] Height (Calculated Centimeters) 177.8 177. 8 [facility] Blood Pressure 150/91 150/91 [facility] Body Mass Index (BMI) 23.[address] Patient Treatment Plan of Care Planned Activity Planned Date Details Description Data Source (s) Cyclobenzaprine hydrochloride 5 MG Oral Tablet 10/12/2020 12:00:00 AM EDT [facility] ([facility]) paroxetine 10 mg tablet 05/11/2020 12:00:00 AM EST [facility] ([facility]) paroxetine 10 mg tablet 05/11/2020 12:00:00 AM EST [facility] ([facility]) paroxetine 10 mg tablet 05/11/2020 12:00:00 AM EST [facility] ([facility]) paroxetine 10 mg tablet 05/11/2020 12:00:00 AM EST [facility] ([facility]) Naltrexone 112 MG/ML Injectable Suspension [Vivitrol] [facility] ([facility]) Trazodone Hydrochloride 50 MG Oral Tablet [facility] ([facility]) Trazodone Hydrochloride 100 MG Oral Tablet [facility] ([facility]) Nicotine 4 MG Oral Lozenge A [facility] ([facility]) Naltrexone hydrochloride 50 MG Oral Tablet [facility] ([facility]) Folic Acid 1 MG Oral Tablet [facility] ([facility]) Carbamazepine 200 MG Oral Tablet [facility] ([facility]) Acamprosate calcium 333 MG Delayed Release Oral Tablet [facility] ([facility]) Trazodone Hydrochloride 50 MG Oral Tablet [facility] ([facility]) Trazodone Hydrochloride 100 MG Oral Tablet [facility] ([facility]) Trazodone Hydrochloride 50 MG Oral Tablet [facility] ([facility]) Trazodone Hydrochloride 100 MG Oral Tablet [facility] ([facility]) Trazodone Hydrochloride 50 MG Oral Tablet [facility] ([facility]) Trazodone Hydrochloride 100 MG Oral Tablet [facility] ([facility])
[2021-03-04] MEDS ORDERED: PANTOPRAZOLE 40MG VIAL (C9113 PER 1) IV ONE (16:10)
--- NOTE | 2021-03-04 16:18 | REP ---
INDICATION: trauma. COMPARISON: Right hip series 03/04/2021 TECHNIQUE: Axial soft tissue and bone windows the through the right hip with coronal and sagittal bone window reconstructions. FINDINGS: Rim osteophytes on the acetabular roof and femoral head are noted. Some minor spurring at the fovea. No evidence of the flattening of the femoral head or AVN. No hip fracture. There are sharply marginated ossific densities at the greater trochanter at tendinous insertions as well seen by radiograph and this is, old, nothing acute here. Slight narrowing of the hip joint space posteriorly on the axial images. There is a small bone island in the epiphysis of the femoral head anterior and posterior columns of the acetabulum intact the portion of iliac bone SI joint seen were unremarkable. Pubic rami, symphysis pubis, intertrochanteric and subtrochanteric femur were all unremarkable. 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 No pathologic sized inguinal adenopathy. Soft tissue show the ileo psoas, obturator internus and hamstring tendon insertions grossly intact. IMPRESSION: 1. Osteoarthritic changes of the hip joint space as described. There is no fracture or AVN. There is some hip joint space narrowing superiorly and posteriorly. 2. Sharply marginated sclerotic edges to multiple ossific densities adjacent to the greater trochanter representing sequelae of chronic tendinopathy at insertions on the greater trochanter. This does not represent fracture or acute finding. 3. The acetabulum, ischium and visualized portion of the right sacral ala and iliac bone were intact. <Electronically signed by Flavio Rainey > 03/04/21 1941
[2021-03-04 16:20] LABS: ALBUMIN 2.3 GM/DL (3.2-5.2); ALT/SGPT 30 U/L (12-78); BILIRUBIN,DIRECT 0.4 MG/DL (0.0-0.2); BILIRUBIN,TOTAL 0.8 MG/DL (0.2-1.0); BLOOD UREA NITROGEN 10 MG/DL (7-18); CALCIUM LEVEL 8.4 MG/DL (8.5-10.1); CARBON DIOXIDE LEVEL 28 MEQ/L (21-32); CHLORIDE LEVEL 87 MEQ/L (98-107); CK-MB VALUE MASS 1.8 NG/ML (<3.6); CPK CREATINE PHOSPHOKINASE 84 U/L (39-308); CREATININE FOR GFR 0.87 MG/DL (0.70-1.30); FREE T4 1.45 NG/DL (0.76-1.46); GLOMERULAR FILTRATION RATE > 60.0 (>56); GLUCOSE, FASTING 102 MG/DL (70-100); MB/CK RELATIVE INDEX 2.14 (< OR =4); POTASSIUM SERUM 3.3 MEQ/L (3.5-5.1); SODIUM LEVEL 129 MEQ/L (136-145); TROPONIN I < 0.02 NG/ML (< 0.10)
[2021-03-04] MEDS ORDERED: POTASSIUM CHLORIDE 10MEQ SR TABLET PO ONE (16:35)
[2021-03-04] MEDS ORDERED: POTASSIUM CHLORIDE 10% LIQ 20 MEQ/15 ML UDC PO ONE (17:00)
[2021-03-04] MEDS ORDERED: LORazepam 2 MG/ML VIAL IV PRN (17:25)
[2021-03-04] MEDS ORDERED: BUSP1TAB PO (17:35)
[2021-03-04 17:40] LABS: RSV AMPLIFICATION NEGATIVE (NEGATIVE)
--- OUTSIDE RECORDS SUMMARY | 2021-03-04 17:48 | CCD ---
Author Author [facility] Organization [facility] Address Unknown Phone Unavailable Care Team Providers Care E Commerce Solution Architect Name Role Phone GIO RUANO MD Unavailable [...] Yayo Gibbs MD Unavailable Unavailable Jailene Collado PROTOTYPE DEICER ASSEMBLER Unavailable Unavailable Drea Marcus MD Unavailable Unavailable Drea Marcus MD Unavailable Unavailable Drea Marcus MD Unavailable Unavailable Porcari, Torres MD Unavailable Unavailable Porcari, Torres MD Unavailable Unavailable Porcari, Torres MD Unavailable Unavailable Porcari, Torres MD Unavailable Unavailable Porcari, Torres MD Unavailable Unavailable Porcari, Torres MD Unavailable Unavailable Porcari, Torres MD Unavailable Unavailable Porcari, Torres MD Unavailable Unavailable Porcari, Trores MD Unavailable Unavailable Porcari, Torres MD Unavailable [...] Unavailable UNKNOWN Unavailable Unavailable Collado, F Jailene PROTOTYPE DEICER ASSEMBLER-BC Unavailable Unavailable Collado, F Jailene PROTOTYPE DEICER ASSEMBLER-BC Unavailable Unavailable Collado, F Jailene PROTOTYPE DEICER ASSEMBLER-BC Unavailable Unavailable Collado, F Jailene PROTOTYPE DEICER ASSEMBLER-BC Unavailable Unavailable Collado, F Jailene PROTOTYPE DEICER ASSEMBLER-BC Unavailable Unavailable Collado, F Jailene PROTOTYPE DEICER ASSEMBLER-BC Unavailable Unavailable Collado, F Jailene PROTOTYPE DEICER ASSEMBLER-BC Unavailable Unavailable Collado, F Jailene PROTOTYPE DEICER ASSEMBLER-BC Unavailable Unavailable Collado, F Jailene PROTOTYPE DEICER ASSEMBLER-BC Unavailable Unavailable Collado, F Jailene PROTOTYPE DEICER ASSEMBLER-BC Unavailable Unavailable Collado, F Jailene PROTOTYPE DEICER ASSEMBLER-BC Unavailable Unavailable Collado, F Jailene PROTOTYPE DEICER ASSEMBLER-BC Unavailable Unavailable Collado, F Jailene PROTOTYPE DEICER ASSEMBLER-BC Unavailable Unavailable Collado, F Jailene PROTOTYPE DEICER ASSEMBLER-BC Unavailable Unavailable Collado, F Jailene PROTOTYPE DEICER ASSEMBLER-BC Unavailable Unavailable Collado, F Jailene PROTOTYPE DEICER ASSEMBLER-BC Unavailable Unavailable Collado, F Jailene PROTOTYPE DEICER ASSEMBLER-BC Unavailable Unavailable Collado, F Jailene PROTOTYPE DEICER ASSEMBLER-BC Unavailable Unavailable Collado, F Jailene PROTOTYPE DEICER ASSEMBLER-BC Unavailable Unavailable Collado, F Jailene PROTOTYPE DEICER ASSEMBLER-BC Unavailable Unavailable Collado, F Jailene PROTOTYPE DEICER ASSEMBLER-BC Unavailable Unavailable Mahamed Collado PROTOTYPE DEICER ASSEMBLER-BC Unavailable Unavailable Mhaamed Collado PROTOTYPE DEICER ASSEMBLER-BC Unavailable Unavailable Re-disclosure Warning The records that [...] is protected by Article 27-F of the [facility] Public Health law. If you continue you may have access to information: Regarding HIV / AIDS; Provided by facilities licensed or operated by the [facility] Office of Mental Health; or Provided by the [facility] Office for People With Developmental Disabilities. If such information is present, then the following [facility] mandated warning applies: This information has been [...] law may result in a fine or residential sentence or both. A general authorization for the release of medical or other information is NOT sufficient authorization for further disc losure. Family History Family Member Name Family Member Gender Family Member Status Date o f Status Description Data Source(s) Unknown Unknown Problem [facility] ) Encounters Encounter Providers Location Date Indications Data Source(s ) Outpatient Attender: UNKNOWN [facility]PS[facility]ORT-LABEJN 11/01/2020 08:33:[address] [facility] Inpatient Attender: Torres Henley MDA ttender: GIO RUANO MDAdmitter: Torres Henley MD ED-[facility] 11/01/2020 07:03:00 PM EDT - 11/04/2020 01:55:00 PM EDT F10.20 [facility] F10.20 Patient discharged. Outpatient Attender: Torres Henley MD ED-LABPNP 10/2020 04:26:00 PM EDT - 11/01/2020 04:27:00 PM EDT DETOX [facility] DETOX Patient discharged. Alexx Gibbs MD: [address] [place] [address], Ph. Attender: Alexx Gibbs MD [facility] Medical 10/12/2020 12:00:00 AM EDT [facility] ([facility]) Alexx Gibbs MD: [address] [place] [address], Ph. Attender: Alexx Gibbs MD [facility] Medical 09/08/2020 12:00:00 AM EDT [facility] ([facility]) Alexx Gibbs MD: [address] [place] [address], Ph. Attender: Alexx Gibbs MD [facility] Medical 09/08/2020 12:00:00 AM EDT [facility] ([facility]) Alexx Gibbs MD: [address] [place] [address], Ph. Attender: Alexx Gibbs MD [facility] Medical 05/11/2020 12:00:00 AM EST [facility] ([facility]) Alexx Gibbs MD: [address] [place] [address], Ph. Attender: Alexx Gibbs MD [facility] Medical 05/11/2020 12:00:00 AM EST [facility] ([facility]) Alexx Gibbs MD: [address] [place] [address], Ph. Attender: Alexx Gibbs MD [facility] Medical 05/11/2020 12:00:00 AM EST [facility] ([facility]) Alexx Gibbs MD: [address] [place] [address], Ph. Attender: Alexx Gibbs MD [facility] Medical 05/11/2020 12:00:[address] [facility] ([facility]) Outpatient CPSCAORT-LABEJImani 04/10/2020 11:50:00 PM [facility] 03/05/2020 02:25:00 PM [facility] Inpatient Attender: GIO RUANO MDAd mitter: GIO RUANO MDConsultant: Drea Marcus MD ED-[facility] 03/01/2020 12:21:[address] [facility] - 03/08/2020 04:00:00 PM [facility] F1020 Patient discharged. Outpatient Attender: MICAELA HINOJOSA 01/26/2020 12:58:01 PM EDT [facility] Outpatient Attender: MICAELA HINOJOSA 01/26/2020 12:20:07 PM EDT [facility] Outpatient Attender: Jailene ELKINS 01/26/2020 12: 20:04 PM EDT [facility] Outpatient Attender: MICAELA HINOJOSA 01/26/2020 12:14:00 PM EDT [facility] Outpatient Attender: MICAELA HINOJOSA 01/26/2020 12:06:07 PM EDT [facility] Outpatient Attender: MICAELA HINOJOSA 01/10/2020 01:52:00 PM EDT [facility] Immunizations Vaccine Date Status Description Data Source(s) COVID-19 VACCINE July 09/08/2020 12:00:00 AM EDT completed [employer] Vaccine Series Complete: YESThis Data wa s Submitted to [facility] [employer]. COVID-19, mRNA, LNP-S, PF, 100 mcg/0.5 mL dose 09/06/2020 12 :00:00 AM EDT completed 09/06/[address] ([facility]) Medications Medication Brand Name Start Date Product Form Dose Route Admi nistrative Instructions Pharmacy Instructions Status Indications Reaction Description Data Source(s) Cyclobenzaprine hydrochloride 5 MG Oral Tablet cyclobe nzaprine 5 mg tablet cyclobenzaprine 5 mg tablet 10/12/2020 12:00:00 AM EDT completed cyclobenzaprine hydrochloride 5 MG Oral Tablet [facility] ([facility]) paroxetine 10 mg tablet [id number] 05/11/2020 12:00:00 AM EST completed paroxetine hydrochloride 10 MG Oral Tablet [facility] ([facility]) paroxetine 10 mg tablet [id number] 05/11/2020 12:00:00 AM EST completed paroxetine hydrochloride 10 MG Oral Tablet [facility] ([facility]) paroxetine 10 mg tablet [id number] 05/11/2020 12:00:00 AM EST completed paroxetine hydrochloride 10 MG Oral Tablet [facility] ([facility]) paroxetine 10 mg tablet [id number] 05/11/2020 12:00:00 AM EST completed paroxetine hydrochloride 10 MG Oral Tablet [address] [facility] ([facility]) Acamprosate calcium 333 MG Delayed Relea se Oral Tablet acamprosate 333 mg tablet,delayed release acamprosate 333 mg tablet,delayed release completed acamprosate calcium 333 MG Delay ed Release Oral Tablet [facility] [facility] ([facility]) Trazodone Hydrochloride 50 MG Oral Tablet trazodone 50 mg tablet trazodone 50 mg tablet completed trazodone hydro chloride 50 MG Oral Tablet [facility] ([facility]) Trazodone Hydrochloride 100 MG Oral Tablet trazodone 1 00 mg tablet trazodone 100 mg tablet completed trazodone hy drochloride 100 MG Oral Tablet [facility] ([facility]) Carbamazepine 200 MG Oral Tablet carbamazepine 200 mg tablet carbamazepine 200 mg tablet completed carbamazepin e 200 MG Oral Tablet [facility] ([facility]) Naltrexone hydrochloride 50 MG Oral Tablet naltrexone 50 mg tablet naltrexone 50 mg tablet completed naltrexone h ydrochloride 50 MG Oral Tablet [facility] ([facility]) Trazodone Hydrochloride 100 MG Oral Tablet trazodone 1 00 mg tablet trazodone 100 mg tablet completed trazodone hy drochloride 100 MG Oral Tablet [facility] ([facility]) Trazodone Hydrochloride 50 MG Oral Tablet trazodone 50 mg tablet trazodone 50 mg tablet completed trazodone hydro chloride 50 MG Oral Tablet [facility] ([facility]) Nicotine 4 MG Oral Lozenge nicotine (polacrilex) 4 mg buccal lozenge nicotine (polacrilex) 4 mg buccal lozenge compl eted nicotine 4 MG Oral Lozenge [facility] ([facility]) Trazodone Hydrochloride 50 MG Oral Tablet trazodone 50 mg tablet trazodone 50 mg tablet completed trazodone hydro chloride 50 MG Oral Tablet [facility] ([facility]) Naltrexone 112 MG/ML Injectable Suspensi on [Vivitrol] Vivitrol 380 mg intramuscular suspension,extended release Vivitrol 380 mg intramuscular suspension,extended release completed naltrexone 380 MG Injection [Vivitrol] [facility] ([facility]) Trazodone Hydrochloride 50 MG Oral Tablet trazodone 50 mg tablet trazodone 50 mg tablet completed trazodone hydr ochloride 50 MG Oral Tablet [facility] ([facility]) Trazodone Hydrochloride 100 MG Oral Tablet trazodone 1 00 mg tablet trazodone 100 mg tablet completed trazodone h ydrochloride 100 MG Oral Tablet [facility] ([facility]) Folic Acid 1 MG Oral Tablet folic acid 1 mg tablet folic acid 1 mg ta blet completed folic acid 1 MG Oral Tablet [facility] ([facility]) Trazodone Hydrochloride 100 MG Oral Tablet trazodone 1 00 mg tablet trazodone 100 mg tablet completed trazodone h ydrochloride 100 MG Oral Tablet [facility] ([facility]) Insurance Providers Payer name Policy type / Coverage type Policy ID Covered alliance party ID Covered alliance party's relationship to tsai Policy Tsai Plan Information [facility] [id number] SP [id number] [facility] [id number] SP [id number] [facility] [id number] SP [id number] Managed Care - Community Plan [facility] P [id number] S [id number] Medicaid S [id number] S [id number] Managed Care - Community Plan [facility] P [id number] S [id number] Medicaid S [id number] S [id number] [facility] COMMUNITY PL [id number] S [id number] [email or web address] PL [id number] S [id number] [facility] Care [facility] Community Plan P [id number] S [id number] [email or web address] PL [id number] Unknown [id number] Medicaid S [id number] S [id number] Managed Care [facility] Community Plan P [id number] S [id number] [employer] COMM[employer]ITY PLAN MCDHMO [id number] SP [id number] [facility] [[email or web address] PL [id number] Unemploye d [id number] EMEDNY [id number] SP [id number] [facility] [id number] SP [id number] [facility]) O [id number] S [id number] Self Pay P UNAVAILABLE S UNAVAILA BLE [facility] [[email or web address] PL [id number] S [id number] [facility] Care [facility] Community Plan P [id number] S [id number] Managed Care - Community Plan [facility] P [id number] S [id number] [facility]) O [id number] S [id number] [facility] [id number] SP [id number] [facility] Health Maintenance Organization (HMO) [id number] Self SELF PAY UNAVAILABLE SP UNAVAILA BLE Problems, Conditions, and Diagnoses Code Display Name Description Problem Type Effective Dates Data Source(s) Y90.8 Blood alcohol level of 240 mg/100 ml or more BLOOD ALCOHOL LEVEL OF 240 MG/100 ML OR MORE Diagnosis 11/01/2020 07:03:00 PM [facility] spital F12.10 Cannabis abuse, uncomplicated CANNABIS ABUSE, UNCOMPLI CATED Diagnosis 11/01/2020 07:03:00 PM [facility] G47.00 Insomnia, unspecified INSOMNIA, UNSPECIFIED Diagnosis 11/01/2020 07:03:00 PM [facility] F32.9 Major depressive disorder, single episod e, unspecified MAJOR DEPRESSIVE DISORDER, SINGLE EPISODE, UNSPECIFIED Diagnosis 11/01/2020 07:03:00 PM [facility] 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 THROMBOCYTOPENIA Diagnosis 11/01/2020 07:03:00 PM [facility] J30.2 Other seasonal allergic rhinitis OTHER SEASONAL ALLERGIC RHINITIS Diagnosis 11/01/2020 07:03:00 PM T [facility] F17.210 Nicotine dependence, cigarettes, uncompl icated NICOTINE DEPENDENCE, CIGARETTES, UNCOMPLICATED Diagnosis 11/01/2020 07:03:00 PM EDT [facility] F10.230 Alcohol dependence with withdrawal, unco mplicated ALCOHOL DEPENDENCE WITH WITHDRAWAL, UNCOMPLICATED Diagnosis 11/01/2020 07:03:00 PM EDT [facility] F17.200 Nicotine dependence, unspecified, uncomp licated NICOTINE DEPENDENCE, UNSPECIFIED, UNCOMPLICATED Diagnosis 03/01/2020 12:21:00 PM [facility] G40.509 Epileptic seizures related t o external causes, not intractable, without status epilepticus EPILEPTIC SEIZ REL TO EXTRN CAUSES, NOT NTRCT, W/O STA T EPI Diagnosis 03/01/2020 12:21:00 PM [facility] J30.9 Allergic rhinitis, unspecified ALLERGIC RHINITIS, UNSP ECIFIED Diagnosis 03/01/2020 12:21:00 PM [facility] F41.9 Anxiety disorder, unspecified ANXIETY DISORDER, UNSPEC IFIED Diagnosis 03/01/2020 12:21:00 PM [facility] F10.232 Alcohol dependence with withdrawal with perceptual disturbance ALCOHOL DEPENDENCE W WITHDRAWAL WITH PERCEPTUAL DISTURBANCE Diagnosis 12:21:00 PM [facility] [id number] Epilepsy Epilepsy Problem 05/11/2020 12:00:00 AM PERCY YARBROUGH ([facility]) [id number] 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 Problem 05/11/2020 12:00:00 AM LOURDES YARBROUGH ([facility]) [id number] Insomnia Insomnia Problem 05/11/2020 12:00:00 AM PERCY YARBROUGH ([facility]) [id number] Epilepsy Epilepsy Problem 05/11/2020 12:00:00 AM PERCY YARBROUGH ([facility]) [id number] 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 Problem 05/11/2020 12:00:00 AM LOURDES YARBROUGH ([facility]) [id number] Insomnia Insomnia Problem 05/11/2020 12:00:00 AM PERCY YARBROUGH ([facility]) [id number] Epilepsy Epilepsy Problem 05/11/2020 12:00:00 AM PERCY YARBROUGH ([facility]) [id number] 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 Problem 05/11/2020 12:00:00 AM LOURDES YARBROUGH ([facility]) [id number] Insomnia Insomnia Problem 05/11/2020 12:00:00 AM PERCY YARBROUGH ([facility]) [id number] Epilepsy Epilepsy Problem 05/11/2020 12:00:00 AM PERCY YARBROUGH ([facility]) [id number] 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 Problem 05/11/2020 12:00:00 AM LOURDES YARBROUGH ([facility]) [id number] Insomnia Insomnia Problem 05/11/2020 12:00:00 AM PERCY YARBROUGH ([facility]) V85.1 BMI 23.0-23.9 BMI 23.0-23.9 01/26/2020 12:19:11 PM EDT [facility] [id number] Body measurement finding Body Measurement Finding Prob marc 01/26/2020 12:00:00 AM EDT [facility] ([facility]) [id number] Body measurement finding Body Measurement Finding Prob marc 01/26/2020 12:00:00 AM EDT [facility] ([facility]) [id number] 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 Status Epilepticus Due to Refractory Epilepsy Problem 09/04/2017 12:00:00 AM EDT - 05/11/2020 12:00:00 AM EST [facility] ([facility]) [id number] 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 Status Epilepticus Due to Refractory Epilepsy Problem 09/04/2017 12:00:00 AM EDT - 05/11/2020 12:00:00 AM EST [facility] ([facility]) [id number] 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 Status Epilepticus Due to Refractory Epilepsy Problem 09/04/2017 12:00:00 AM EDT - 05/11/2020 12:00:00 AM EST [facility] ([facility]) [id number] 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 Status Epilepticus Due to Refractory Epilepsy Problem 09/04/2017 12:00:00 AM EDT - 05/11/2020 12:00:00 AM EST [facility] ([facility]) Surgeries/Procedures Procedure Description Date Indications Data Source(s) Detoxification Services for Substance Abuse Treatment DETOXIFICATION SERVICES FOR SUBSTANCE ABUSE TREATMENT 11/01/2020 12:00:00 AM EDT [facility] Individual Counseling for Substance Abuse [facility], [facility] INDIV PASSPORT SUPPORT ASSOCIATE FOR SUBSTANCE ABUSE TREATMENT, CONTINUING CARE 03/03/2020 12:00:00 AM [facility] Results ID Date Data Source [id number] 01/10/2021 12:00:00 AM EDT [facility] Name Value Range Interpretation Code Description Data Elizabeth rce(s) Supporting Document(s) SARS-CoV2 Rapid Antigen Negative [facility] This lab was ordered by [facility] and r eported by [facility]. ID Date Data Source [id number] 11/04/2020 02:34:00 AM EDT [facility] Name Value Range Interpretation Code Description Data Elizabeth rce(s) Supporting Document(s) Hepatitis A Ab,IgG result Normal (applies to no n-numeric results) [facility] Result indicates immunity to hepatitis A infection from either vaccination or past exposure to hepatitis A. False-positive results may be observed in patients with CMV antibodies or heterophilic antibodies. REFERENCE VALUE Unvaccinated: Negative Vaccinated: Positive Test Performed by: [facility] [place] [address] Dobby Loom Fixer: Nadeem Mancia M.D. Ph.D.; CLIA# [id number] ID Date Data Source [id number] 11/03/2020 06:58:00 PM EDT [facility] Name Value Range Interpretation Code Description Data Elizabeth rce(s) Supporting Document(s) Hepatitis A Ab,IgG result Normal (applies to no n-numeric results) [facility] Result indicates immunity to hepatitis A infection from either vaccination or past exposure to hepatitis A. False-positive results may be observed in patients with CMV antibodies or heterophilic antibodies. REFERENCE VALUE Unvaccinated: Negative Vaccinated: Positive Test Performed by: [facility] [address] [place] [address] Dobby Loom Fixer: Nadeem Mancia M.D. Ph.D.; IA# [id number] ID Date Data Source [id number] 11/01/2020 08:27:00 PM EDT [facility] Name Value Range Interpretation Code Description Data Elizabeth rce(s) Supporting Document(s) Sodium 140 mmol/L 136-145 Normal (applies to non-numeric resul ts) [facility] Potassium 3.5-5.1 Normal (applies to non-numeric resul ts) [facility] Chloride 97 mmol/L 98-107 Below low normal [facility] spital Carbon Dioxide CO2 21-32 Normal (applies to non-numer ic results) [facility] Anion Gap 5.0-16.0 Normal (applies to non-numeric resul ts) [facility] BUN 9 mg/dL 7-18 Normal (applies to non-numeric results) [facility] Creatinine,Serum 0.8-1.5 Normal (applies to non-numeric results) [facility] GFR >60 Normal (applies to non-numeric results) [facility] Glucose Level 142 mg/dL 60-99 Above high normal [facility] Reference range is only applicable when patient is fasting Note the following drug interference: Sulfasalazine Sulfapyridine Can see falsely depressed Can see falsely elevated result with up to 17% results with up to 11% decrease in measurement increase in measurement Recommend patients be collected for this test prior to administration of either drug. Calcium 8.5-10.1 Below low normal [facility] spital Bilirubin,Total 0.1-1.9 Normal (applies to non-numeric results) [facility] SGOT(AST) 64 U/L 15-37 Above high normal [facility] ospital Note the following drug interference: Sulfasalazine Sulfapyridine Can see falsely depressed Can see falsely elevated result with up to 10% results with up to 10% decrease in measurement increase in measurement Recommend patients be collected for this test prior to administration of either drug. SGPT(ALT) 43 U/L 12-78 Normal (applies to non-numeric resul ts) [facility] Note the following drug interference: Sulfasalazine Sulfapyridine Can see falsely depressed Can see falsely elevated result with up to 29% results with up to 10% decrease in measurement increase in measurement Recommend patients be collected for this test prior to administration of either drug. Alkaline Phosphatase 58 U/L 38-126 Normal (applies to non-num martin results) [facility] can increase Alkaline Phosp le vels up to 2 times the normal adult value. Normal values for children and adolescents are 2 to 3 times the normal adult value. Total Protein 6.0-8.2 Above high normal [facility] Albumin Level 3.4-5.0 Normal (applies to non-numeric re sults) [facility] ID Date Data Source [id number] 11/01/2020 08:27:00 PM EDT [facility] Name Value Range Interpretation Code Description Data Elizabeth rce(s) Supporting Document(s) Bilirubin,Direct 0.05-0.20 Normal (applies to non-numeric results) [facility] ID Date Data Source [id number] 11/01/2020 08:27:00 PM EDT [facility] Value Range Interpretation Code Description Data Elizabeth rce(s) Supporting Document(s) Phosphorus 2.5-4.9 Normal (applies to non-numeric resul ts) [facility] ID Date Data Source [id number] 11/01/2020 08:27:00 PM EDT [facility] Value Range Interpretation Code Description Data Elizabeth rce(s) Supporting Document(s) Magnesium 1.8-2.4 Above high normal [facility] ID Date Data Source [id number] [facility] Code Description Data Elizabeth rce(s) Supporting Document(s) Thyroid Stimulate Hormone TSH 0.358-3.74 No rmal (applies to non-numeric results) [facility] ID Date Data Source [id number] 11/02/2020 03:54:00 AM EDT [facility] Value Range Interpretation Code Description Data Elizabeth rce(s) Supporting Document(s) CPK result 131 U/L 39-308 Normal (applies to non-numeric resul ts) [facility] Test Performed By: [facility] [address] [place] [address] Director: Agustin Lawrence MD ID Date Data Source [id number] 11/02/2020 03:54:00 AM EDT [facility] [facility] Value Range Interpretation Code Description Data Elizabeth rce(s) Supporting Document(s) Hepatitis C Virus Ab result Nonreactive Norm al (applies to non-numeric results) [facility] Test Performed By: [facility] [address] [place] [address] Director: Agustin Lawrence MD ID Date Data Source [id number] 11/02/2020 03:54:00 AM EDT [facility] Value Range Interpretation Code Description Data Elizabeth rce(s) Supporting Document(s) Hep Bs Ag result T-Test Nonreactive Normal (applies to non -numeric results) [facility] Test Performed By: [facility] [address] [place] [address] Director: Agustin Lawrence MD ID Date Data Source [id number] 11/02/2020 03:54:00 AM EDT [facility] Value Range Interpretation Code Description Data Elizabeth rce(s) Supporting Document(s) Syphilis Serology result Nonreactive Normal (applies to non-numeric results) [facility] Test Performed By: [facility] [address] [place] [address] Director: Agustin Lawrence MD ID Date Data Source [id number] 11/01/2020 08:37:00 PM EDT [facility] Name Value Range Interpretation Code Description Data Elizabeth rce(s) Supporting Document(s) Ethanol Less than 10.0 Above high normal [facility] ID Date Data Source [id number] 11/01/2020 08:02:00 PM EDT [facility] Name Value Range Interpretation Code Description Data Elizabeth rce(s) Supporting Document(s) White Blood Count 3.5-10.5 Normal (applies to non-numeri c results) [facility] Red Blood Count 4.30-5.70 Below low normal [facility] Hemoglobin 13.5-17.5 Normal (applies to non-numeric resul ts) [facility] Hematocrit 38.8-50.0 Normal (applies to non-numeric resul ts) [facility] Mean Corpuscular Volume 81.2-95.1 Above high normal [facility] Mean Corpuscular Hgb 25.6-32.2 Above high normal [facility] Mean Corpuscular Hgb Conc 32.0-36.0 Normal (applies to no n-numeric results) [facility] Red Cell Distribution Width 11.8-15.6 Normal (appli es to non-numeric results) [facility] Platelet Count 108 x10 3/uL 150-450 Below low normal [facility] Mean Platelet Volume 9.4-12.4 Normal (applies to non-num martin results) [facility] Neutrophils% (Auto) 31.0-71.0 Normal (applies to non-nume conchita results) [facility] Lymphocytes% (Auto) 20.0-55.0 Normal (applies to non-nume conchita results) [facility] Monocytes% (Auto) 4.0-12.0 Normal (applies to non-numeri c results) [facility] Eosinophils% (Auto) 1.0-8.0 Normal (applies to non-nume conchita results) [facility] Basophils% (Auto) 0.0-2.0 Normal (applies to non-numeri c results) [facility] Immature Granulocytes% (Auto) 0.0-2.0 Normal (dmitry lies to non-numeric results) [facility] Neutrophils# (Auto) 1.50-6.20 Below low normal [facility] Lymphocytes# (Auto) 1.20-4.00 Normal (applies to non-nume conchita results) [facility] Monocytes# (Auto) 0.00-0.90 Normal (applies to non-numeri c results) [facility] Eosinophils# (Auto) 0.00-0.50 Normal (applies to non-nume conchita results) [facility] Basophils# (Auto) 0.00-0.20 Normal (applies to non-numeri c results) [facility] Immature Granulocytes# (Auto) 0.00-7.00 No rmal (applies to non-numeric results) [facility] ID Date Data Source [id number] 11/04/2020 02:50:00 AM EDT [facility] Name Value Range Interpretation Code Description Data Elizabeth rce(s) Supporting Document(s) Chlamydia,Urine result Negative Normal (applies to non-n umeric results) [facility] Test Performed By: [facility] [address] [place] [address] Director: Agustin Lawrence MD . GC Urine result Negative Normal (applies to non-numeric results) [facility] Test Performed By: [place] [address] Director: Agustin Lawrence MD . Methodology: Second generation nucleic acid amplification. ID Date Data Source [id number] 11/03/2020 04:39:00 PM EDT [facility] Name Value Range Interpretation Code Description Data Elizabeth rce(s) Supporting Document(s) Chlamydia,Urine Negative Normal (applies to non-numeric results) [facility] Test Performed By: [facility] [address] [place] [address] Director: Agustin Lawrence MD . GC Urine Negative Normal (applies to non-numeric resul ts) [facility] Test Performed By: [facility] [address] [place] [address] Director: Agustin Lawrence MD . Methodology: Second generation nucleic acid amplification. ID Date Data Source [id number] 11/01/2020 08:39:00 PM EDT [facility] Collected By: Nurse's Aide Initials: dn Name Value Range Interpretation Code Description Data Elizabeth rce(s) Supporting Document(s) Color,Urine Colorl-Dk Y Normal (applies to non-numeric res ults) [facility] Clarity,Urine Clear Normal (applies to non-numeric re sults) [facility] Specific Oliver,Urine 1.005-1.030 Normal (applies to non- numeric results) [facility] pH,Urine 5.0-8.0 Normal (applies to non-numeric resul ts) [facility] Protein,Urine Negative Normal (applies to non-numeric re sults) [facility] Glucose,Urine Negative Normal (applies to non-numeric re sults) [facility] Ketones,Urine Negative Normal (applies to non-numeric re sults) [facility] Blood,Urine Negative Normal (applies to non-numeric resu lts) [facility] Bilirubin,Urine Negative Normal (applies to non-numeric results) [facility] Urobilinogen,Urine 0.2-1.0 Normal (applies to non-numer ic results) [facility] Leukocyte Esterase,Urine Negative Normal (applies to non -numeric results) [facility] Nitrite,Urine Negative Normal (applies to non-numeric re sults) [facility] ID Date Data Source [id number] 11/01/2020 08:33:00 PM EDT [facility] Name Value Range Interpretation Code Description Data Elizabeth rce(s) Supporting Document(s) UDS Benzodiazepines Screen Negative Normal (applies to n on-numeric results) [facility] UDS Cocaine Screen Negative Normal (applies to non-numer ic results) [facility] UDS Ampetamine Screen Negative Normal (applies to non-nu meric results) [facility] UDS Cannabinoids Screen Negative Normal (applies to non- numeric results) [facility] UDS Opiates Screen Negative Normal (applies to non-numer ic results) [facility] UDS Barbiturates Screen Negative Normal (applies to non- numeric results) [facility] Threshold Levels Benzodiazepine 200 ng/mL Cocaine 300 ng/mL Amphetamines 1000 ng/mL Cannabinoids (THC) 50 ng/mL Opiates 300 ng/mL Barbiturates 200 ng/mL All positive findings are presumptive and unconfirmed. Confirmation of positive results are performed only at request of provider. Unconfirmed results must not be used for non-medical purposes (i.e. preemployment and legal purposes) ID Date Data Source [id number] 11/02/2020 01:04:00 AM EDT [facility] Value Range Interpretation Code Description Data Elizabeth rce(s) Supporting Document(s) Hep C Ab-T Test Nonreactive Normal (applies to non-numeric results) [facility] Test Performed By: [place] [address] Director: Agustin Lawrence MD ID Date Data Source [id number] 11/02/2020 01:04:00 AM EDT [facility] Value Range Interpretation Code Description Data Elizabeth rce(s) Supporting Document(s) Hep Bs Ag Result T-Test Nonreactive Normal (applies to non -numeric results) [facility] Test Performed By: [place] [address] Director: Agustin Lawrence MD ID Date Data Source [id number] 11/02/2020 01:04:00 AM EDT [facility] Value Range Interpretation Code Description Data Elizabeth rce(s) Supporting Document(s) Syphilis Serology Nonreactive Normal (applies to non-numer ic results) [facility] Test Performed By: [facility] [address] [place] [address] Director: Agustin Lawrence MD ID Date Data Source [id number] 11/01/2020 10:55:00 PM EDT [facility] Value Range Interpretation Code Description Data Elizabeth rce(s) Supporting Document(s) CPK 131 U/L 39-308 Normal (applies to non-numeric resul ts) [facility] Test Performed By: [facility] [address] [place] [address] Director: Agustin Lawrence MD ID Date Data Source [id number] 11/01/2020 04:15:00 PM EDT [facility] Name Value Range Interpretation Code Description Data Elizabeth rce(s) Supporting Document(s) Respiratory specimen severe acute respir atory syndrome coronavirus 2 (SARS-CoV-2) RNA Negative (qualifier value) [facility] This lab was ordered by [facility] and reported by . ID Date Data Source [id number] 11/01/2020 04:47:00 PM EDT [facility] Name Value Range Interpretation Code Description Data Elizabeth rce(s) Supporting Document(s) SARS-CoV-2 RNA Negative Normal (applies to non-numeric r esults) [facility] Negative results should be treated as pr [...] Certificate of Accreditation. Factsheets for healthcare providers: https://www.fda.gov/media/353783/download Factsheets for patients: https://www.fda.gov/media/602223/download The ID NOW Instrument is a rapid molecular in vitro diagnostic test utilizing an isothermal nucleic acid amplification technology intended for the qualitative detection of nucleic acid from the SARS-CoV-2 viral RNA. THIS IS A STATE REPORTABLE COMMUNICABLE DISEASE. Manual entry verified by Lori Morrison 11/01/20 1644 ID Date Data Source [id number] 10/05/2020 04:45:[address] [facility]) Name Value Range Interpretation Code Description Data Elizabeth rce(s) Supporting Document(s) barbiturates urine negative negative Barbiturates Urin e LINNEA ([facility]) amphetamines level urine negative negative Amphetamine s Level Urine LINNEA ([facility]) benzodiazepines urine negative negative Benzodiazepine s Urine LINNEA ([facility]) cocaine metabolite urine negative negative Cocaine Met abolite Urine LINNEA ([facility]) methadone urine negative negative Methadone Urine ATHE ([facility]) cannabinoids urine negative negative Cannabinoids Urin e LINNEA ([facility]) opiates urine negative negative Opiates Urine LINNEA ( [facility]) phencyclidine urine negative negative Phencyclidine Ur ine [address] [facility] ([facility]) ID Date Data Source [id number] 10/05/2020 04:11:[address] [address] [facility]) Name Value Range Interpretation Code Description Data Elizabeth rce(s) Supporting Document(s) thyroid stimulating hormone 3.120 uIU/mL 0.358-3.740 Thyroid Stimulating Hormone LINNEA ([facility]) ID Date Data Source [id number] 10/05/2020 04:11:[address] [address] [facility]) Name Value Range Interpretation Code Description Data Elizabeth rce(s) Supporting Document(s) acetaminophen level < 2.0 10.0-30.0 Below low normal Acetaminop hen Level [facility] [address] [facility] ([facility]) ID Date Data Source [id number] 10/05/2020 04:11:[address] [address] [facility] ([facility]) Name Value Range Interpretation Code Description Data Elizabeth rce(s) Supporting Document(s) salicylate level 7.9 mg/dL 5.0-30.0 Salicylate Level AT LAUREN ([facility]) ID Date Data Source [id number] 10/05/2020 04:11:00 PM EDT [facility] ([facility]) Name Value Range Interpretation Code Description Data Elizabeth rce(s) Supporting Document(s) ethyl alcohol (ethanol) 0.497 % 0.000-0.010 Above high normal Ethyl Alcohol (Ethanol) [facility] ([facility]) ID Date Data Source [id number] 10/05/2020 04:11:00 PM EDT [facility] ([facility]) Name Value Range Interpretation Code Description Data Elizabeth rce(s) Supporting Document(s) glucose, fasting 108 mg/dL 70-100 Above high normal Glucose, Fas ting [facility]NEA ([facility]) creatinine for GFR 0.65 mg/dL 0.70-1.30 Below low normal Creatinine for GFR [facility] [address] [facility] ([facility]) blood urea nitrogen 6 mg/dL 7-18 Below low normal Blood Urea Nitrogen LINNEA ([facility]) potassium serum 3.8 mEq/L 3.5-5.1 Potassium Serum ATHE NA ([facility]) sodium level 135 mEq/L 136-145 Below low normal Sodium Level ATHE NA ([facility]) glomerular filtration rate > 60.0 >56 Glomerula r Filtration Rate LINNEA ([facility]) carbon dioxide level 26 mEq/L 21-32 Carbon Dioxide Level LINNEA ([facility]) chloride level 98 mEq/L 98-107 Chloride Level LINNEA ([facility]) anion gap 11 mEq/L 8-16 Anion Gap [facility] ([facility]) calcium level 8.6 mg/dL 8.5-10.1 Calcium Level LINNEA ( [facility]) ID Date Data Source [id number] 10/05/2020 04:11:00 PM EDT [facility] ([facility]) Name Value Range Interpretation Code Description Data Elizabeth rce(s) Supporting Document(s) AST/SGOT 36 U/L 7-37 AST/SGOT [facility] ([facility]) ALT/SGPT 27 U/L 12-78 ALT/SGPT [facility] ([facility]) bilirubin,direct 0.2 mg/dL 0.0-0.2 Bilirubin,direct AT LAUREN ([facility]) alkaline phosphatase 56 U/L 45-117 Alkaline Phosph atase LINNEA ([facility]) bilirubin,total 0.4 mg/dL 0.2-1.0 Bilirubin,total ATHE NA ([facility]) albumin/globulin ratio Albumin/globu maik Ratio LINNEA ([facility]) albumin 4.1 gm/dL 3.2-5.2 Albumin [facility]NEA ([facility]) total protein 8.3 gm/dL 6.4-8.2 Above high normal Total Protein A THEN ([facility]) ID Date Data Source [id number] 10/05/2020 04:11:[address] [facility] ([facility]) Name Value Range Interpretation Code Description Data Elizabeth rce(s) Supporting Document(s) white blood count 7.2 10 4.0-10.0 White Blood Count LIN[facility] ([facility]) red blood count 4.21 10 4.30-6.10 Below low normal Red Blood Coun t LINNEA ([facility]) hemoglobin 13.9 g/dL 13.5-17.5 Hemoglobin LINNEA ([facility]) hematocrit 41.0 % 42.0-52.0 Below low normal Hematocrit LINNEA ( [facility]) mean corpuscular volume 97.4 fL 80.0-96.0 Above high normal Mean Corpuscular Volume LINNEA ([facility]) mean corpuscular hemoglobin 33.0 pg 27.0-33.0 Mean Cor puscular Hemoglobin LINNEA ([facility]) mean corpuscular HGB conc 33.9 g/dL 32.0-36.5 Mean Corpu scular HGB Conc LINNEA ([facility]) red cell distribution width 12.7 % 11.5-14.5 Red Cell Distribution Width [facility] [address] [facility] ([facility]) nucleated red blood cell % 0.0 % 0-0 Nucleated Red Blood Cell % [facility] [facility] ([facility]) platelet count, automated 179 10 150-450 Platelet C ount, Automated [facility] ([facility]) ID Date Data Source [id number] 10/05/2020 04:05:00 PM EDT [facility] Name Value Range Interpretation Code Description Data Elizabeth rce(s) Supporting Document(s) SARS coronavirus 2 RNA [Presence] in Res piratory specimen by MADDY with probe detection NEGATIVE [facility] This lab was ordered by [facility] a nd reported by [facility]. ID Date Data Source [id number] 10/05/2020 04:05:[address] [facility] ([facility]) Name Value Range Interpretation Code Description Data Elizabeth rce(s) Supporting Document(s) influenza B amplification negative negative Influenza B Amplification [facility] [address] [facility] ([facility]) influenza A amplification negative negative Influenza a Amplification [facility] [address] [facility] ([facility]) RSV amplification negative negative RSV Amplification [facility] [address] [facility] ([facility]) sars covid-19 amplification negative negative Sars Cov id-[address] [facility] ([facility]) ID Date Data Source [id number] 09/08/2020 10:42:00 AM EDT [facility]) Name Value Range Interpretation Code Description Data Elizabeth rce(s) Supporting Document(s) Urea nitrogen [Mass/volume] in Serum or Plasma 5 mg/dL 7-25 Below low normal Urea Nitrogen (BUN) [facility] ([facility]) Glucose [Mass/volume] in Serum or Plasma 84 mg/dL 65-[address] [facility] ([facility]) Creatinine [Mass/volume] in Serum or Plasma 0.68 mg/dL 0.70 -1.33 Below low normal Creatinine [facility] ([facility]) Glomerular filtration rate/1.73 sq M.pre dicted among blacks [Volume Rate/Area] in Serum, Plasma or Blood by Creatinine-based formula (CKD-EPI) 124 mL/min/1.73m2 > or = 60 eGFR LINNEA ([facility]) Glomerular filtration rate/1.73 sq M.pre dicted among non-blacks [Volume Rate/Area] in Serum, Plasma or Blood by Creatinine-based formula (CKD-EPI) 107 mL/min/1.73m2 > or = 60 eGFR Non-afr. Spanish LINNEA ([facility]) Urea nitrogen/Creatinine [Mass Ratio] in Serum or Plasma 7 (calc) 6-22 BUN/creatinine Ratio LINNEA ([facility]) Chloride [Moles/volume] in Serum or Plasma 102 mmol/L 98-110 Chloride LINNEA ([facility]) Sodium [Moles/volume] in Serum or Plasma 141 mmol/L 135-146 Sodium LINNEA ([facility]) Potassium [Moles/volume] in Serum or Plasma 4.6 mmol/L 3.5-5.3 Potassium LINNEA ([facility]) Carbon dioxide, total [Moles/volume] in Serum or Plasma 20 mmol/L 20-32 Carbon Dioxide LINNEA ([facility]) Calcium [Mass/volume] in Serum or Plasma 8.6 mg/dL 8.6-10.3 Calcium LINNEA ([facility]) Protein [Mass/volume] in Serum or Plasma 7.8 g/dL 6.1-8.1 Protein, [facility] Albumin/Globulin [Mass Ratio] in Serum or Plasma 1.3 (calc) 1.0-2 .5 Albumin/globulin Ratio LINNEA ([facility]) Albumin [Mass/volume] in Serum or Plasma 4.4 g/dL 3.6-5.1 Albumin LINNEA ([facility]) Globulin [Mass/volume] in Serum by calculation 3.4 g/dL_(calc) 1.9- 3.7 Globulin LINNEA ([facility]) Alkaline phosphatase [Enzymatic activity/volume] in Serum or Plasma 55 U/L 35-144 Alkaline Phosphatase LINNEA ([facility]) Aspartate aminotransferase [Enzymatic activity/volume] in Serum or Plasma 50 U/L 10-35 Above high normal Ast LINNEA ([facility]) Bilirubin.total [Mass/volume] in Serum or Plasma 0.3 mg/dL 0.2-1 .2 Bilirubin, Total LINNEA ([facility]) Alanine aminotransferase [Enzymatic activity/volume] in Seru m or Plasma 36 U/L 9-46 Alt LINNEA ([facility]) ID Date Data Source [id number] 09/08/2020 10:42:[address] [facility] ([facility]) Name Value Range Interpretation Code Description Data Elizabeth rce(s) Supporting Document(s) Cholesterol [Mass/volume] in Serum or Plasma 251 mg/dL <200 Above high normal Cholesterol, Total LINNEA ([facility]) Cholesterol in HDL [Mass/volume] in Serum or Plasma 116 mg/dL > or = [address] [facility] ([facility]) Cholesterol.total/Cholesterol in HDL [Mass Ratio] in Serum o r Plasma 2.2 calc <5.0 Chol/hdlc Ratio LINNEA ([facility]) Triglyceride [Mass/volume] in Serum or Plasma 65 mg/dL <150 Triglycerides LINNEA ([facility]) Cholesterol non HDL [Mass/volume] in Serum or Plasma 135 mg/dL_( calc) <130 Above high normal Non HDL Cholesterol LIN[facility] ([facility]) Cholesterol in LDL [Mass/volume] in Serum or Plasma by calculation 119 mg/dL_(calc) <100 Above high normal LDL-cholesterol LINNEA ([facility]) Lipoprotein.alpha 3 [Moles/volume] in Serum 170 nmol/L <215 LDL Medium LIN[facility]A ([facility]) Lipoprotein.beta.subparticle [Moles/volume] in Serum or Plas ma 1138 nmol/L <1138 Above high normal LDL Particle Number [facility] ([facility]) Lipoprotein.beta.subparticle.small [Moles/volume] in Serum o r Plasma 177 nmol/L <142 Above high normal LDL Small LINNEA ([facility]) Lipoprotein.alpha.subparticle.large [Moles/volume] in Serum or Plasma 9929 nmol/L >6729 HDL Large LINNEA ([facility]) Lipoprotein.beta.subparticle [Entitic length] in Serum or Pl asma 228.6 angstrom >222.9 LDL Peak Size LIN[facility]A ([facility]) Cholesterol in LDL real size pattern [Identifier] in Serum or Plasm a A A LDL Pattern LIN[facility]A ([facility]) Apolipoprotein B [Mass/volume] in Serum or Plasma 83 mg/dL Apolipoprotein B [address] [facility] ([facility]) Lipoprotein a [Moles/volume] in Serum or Plasma <10 <75 Lipoprotein (a) LINNEA ([facility]) ID Date Data Source [id number] 09/08/2020 10:42:00 AM EDT [facility]) Name Value Range Interpretation Code Description Data Elizabeth rce(s) Supporting Document(s) Triiodothyronine resin uptake (T3RU) in Serum or Plasma 33 % 22 -35 T3 Uptake LINNEA ([facility]) Thyroxine (T4) free index in Serum or Plasma by calculation 1.4-3.8 Free T4 Index (T7) [facility] [facility] ([facility]) Thyroxine (T4) [Mass/volume] in Serum or Plasma 6.3 mcg/dL 4.9-10 .5 T4 (Thyroxine), Total LINNEA ([facility]) Thyrotropin [Units/volume] in Serum or Plasma 2.28 mIU/L 0.40-4.50 Tsh [facility]) ID Date Data Source [id number] 03/06/2020 03:06:00 AM [facility] Name Value Range Interpretation Code Description Data Elizabeth rce(s) Supporting Document(s) Carbamazepine (Tegretol) 4.0-12.0 Normal (applies to non -numeric results) [facility] Test Performed By: [facility] [address] [place] [address] Director: Agustin Lawrence MD ID Date Data Source [id number] 03/06/2020 07:49:00 AM [facility] Name Value Range Interpretation Code Description Data Elizabeth rce(s) Supporting Document(s) Carbamazepine result 4.0-12.0 Normal (applies to non-num martin results) [facility] Test Performed By: [facility] [address] [place] [address] Director: Agustin Lawrence MD ID Date Data Source [id number] 03/05/2020 07:55:00 AM EST [facility] Name Value Range Interpretation Code Description Data Elizabeth rce(s) Supporting Document(s) Sodium 137 mmol/L 136-145 Normal (applies to non-numeric resul ts) [facility] Potassium 3.5-5.1 Normal (applies to non-numeric resul ts) [facility] Chloride 99 mmol/L 98-107 Normal (applies to non-numeric resul ts) [facility] Carbon Dioxide CO2 21-32 Normal (applies to non-numer ic results) [facility] Anion Gap 5.0-16.0 Normal (applies to non-numeric resul ts) [facility] BUN 14 mg/dL 7-18 Normal (applies to non-numeric results) [facility] Creatinine,Serum 0.8-1.5 Below low normal [facility] GFR >60 Normal (applies to non-numeric results) [facility] Glucose Level 91 mg/dL 60-99 Normal (applies to non-numeric re sults) [facility] Reference range is only applicable when patient is fasting Note the following drug interference: Sulfasalazine Sulfapyridine Can see falsely depressed Can see falsely elevated result with up to 17% results with up to 11% decrease in measurement increase in measurement Recommend patients be collected for this test prior to administration of either drug. Calcium 8.5-10.1 Normal (applies to non-numeric resul ts) [facility] Bilirubin,Total 0.1-1.9 Normal (applies to non-numeric results) [facility] SGOT(AST) 15 U/L 15-37 Normal (applies to non-numeric resul ts) [facility] Note the following drug interference: Sulfasalazine Sulfapyridine Can see falsely depressed Can see falsely elevated result with up to 10% results with up to 10% decrease in measurement increase in measurement Recommend patients be collected for this test prior to administration of either drug. SGPT(ALT) 16 U/L 12-78 Normal (applies to non-numeric resul ts) [facility] Note the following drug interference: Sulfasalazine Sulfapyridine Can see falsely depressed Can see falsely elevated result with up to 29% results with up to 10% decrease in measurement increase in measurement Recommend patients be collected for this test prior to administration of either drug. Alkaline Phosphatase 45 U/L 38-126 Normal (applies to non-num martin results) [facility] can increase Alkaline Phosp le vels up to 2 times the normal adult value. Normal values for children and adolescents are 2 to 3 times the normal adult value. Total Protein 6.0-8.2 Normal (applies to non-numeric re sults) [facility] Albumin Level 3.4-5.0 Below low normal [facility] ID Date Data Source [id number] 11/22/2020 02:25:00 PM EDT [facility] Name Value Range Interpretation Code Description Data Elizabeth rce(s) Supporting Document(s) CPK result Normal (applies to non-numeric results) [facility] ID Date Data Source [id number] 11/22/2020 02:25:00 PM [facility] Value Range Interpretation Code Description Data Elizabeth rce(s) Supporting Document(s) Hepatitis C Virus Ab result Normal (applies to non-numeric results) [facility] ID Date Data Source [id number] 11/22/2020 02:25:00 PM T [facility] Value Range Interpretation Code Description Data Elizabeth rce(s) Supporting Document(s) Hep Bs Ag result T-Test Normal (applies to non- numeric results) [facility] TESTS MISSED BY [facility] DURING CYBER ATTACK/ DOWNTIME ID Date Data Source [id number] 03/17/2020 08:36:00 AM EST [facility] Value Range Interpretation Code Description Data Elizabeth rce(s) Supporting Document(s) Color,Urine Colorl-Dk Y Normal (applies to non-numeric res ults) [facility] Clarity,Urine Clear Normal (applies to non-numeric re sults) [facility] Specific Oliver,Urine 1.005-1.030 Normal (applies to non- numeric results) [facility] pH,Urine 5.0-8.0 Normal (applies to non-numeric resul ts) [facility] Protein,Urine Negative Normal (applies to non-numeric re sults) [facility] Glucose,Urine Negative Normal (applies to non-numeric re sults) [facility] Ketones,Urine Negative Normal (applies to non-numeric re sults) [facility] Blood,Urine Negative Normal (applies to non-numeric resu lts) [facility] Bilirubin,Urine Negative Normal (applies to non-numeric results) [facility] Urobilinogen,Urine 0.2-1.0 Normal (applies to non-numer ic results) [facility] Leukocyte Esterase,Urine Negative Normal (applies to non -numeric results) [facility] Nitrite,Urine Negative Normal (applies to non-numeric re sults) [facility] ID Date Data Source [id number] 03/17/2020 08:35:00 AM EST [facility] Name Value Range Interpretation Code Description Data Elizabeth rce(s) Supporting Document(s) UDS Benzodiazepines Screen Negative Normal (applies to n on-numeric results) [facility] UDS Cocaine Screen Negative Normal (applies to non-numer ic results) [facility] UDS Ampetamine Screen Negative Normal (applies to non-nu meric results) [facility] UDS Cannabinoids Screen Negative [facility] UDS Opiates Screen Negative Normal (applies to non-numer ic results) [facility] UDS Barbiturates Screen Negative Normal (applies to non- numeric results) [facility] ID Date Data Source [id number] 03/17/2020 08:34:00 AM EST [facility] Name Value Range Interpretation Code Description Data Elizabeth rce(s) Supporting Document(s) Sodium 138 mmol/L 136-145 Normal (applies to non-numeric resul ts) [facility] Potassium 3.5-5.1 Normal (applies to non-numeric resul ts) [facility] Chloride 99 mmol/L 98-107 Normal (applies to non-numeric resul ts) [facility] Carbon Dioxide CO2 21-32 Normal (applies to non-numer ic results) [facility] Anion Gap 5.0-16.0 Normal (applies to non-numeric resul ts) [facility] BUN 9 mg/dL 7-18 Normal (applies to non-numeric results) [facility] Creatinine,Serum 0.8-1.5 Normal (applies to non-numeric results) [facility] GFR >60 Normal (applies to non-numeric results) [facility] Glucose Level 121 mg/dL 60-99 Above high normal [facility] Reference range is only applicable when patient is fasting Note the following drug interference: Sulfasalazine Sulfapyridine Can see falsely depressed Can see falsely elevated result with up to 17% results with up to 11% decrease in measurement increase in measurement Recommend patients be collected for this test prior to administration of either drug. Calcium 8.5-10.1 Below low normal [facility] spital Bilirubin,Total 0.1-1.9 Normal (applies to non-numeric results) [facility] SGOT(AST) 28 U/L 15-37 Normal (applies to non-numeric resul ts) [facility] Note the following drug interference: Sulfasalazine Sulfapyridine Can see falsely depressed Can see falsely elevated result with up to 10% results with up to 10% decrease in measurement increase in measurement Recommend patients be collected for this test prior to administration of either drug. SGPT(ALT) 24 U/L 12-78 Normal (applies to non-numeric resul ts) [facility] Note the following drug interference: Sulfasalazine Sulfapyridine Can see falsely depressed Can see falsely elevated result with up to 29% results with up to 10% decrease in measurement increase in measurement Recommend patients be collected for this test prior to administration of either drug. Alkaline Phosphatase 64 U/L 38-126 Normal (applies to non-num martin results) [facility] can increase Alkaline Phosp le vels up to 2 times the normal adult value. Normal values for children and adolescents are 2 to 3 times the normal adult value. Total Protein 6.0-8.2 Normal (applies to non-numeric re sults) [facility] Albumin Level 3.4-5.0 Below low normal [facility] ID Date Data Source [id number] 03/17/2020 08:34:00 AM EST [facility] Name Value Range Interpretation Code Description Data Elizabeth rce(s) Supporting Document(s) Bilirubin,Direct 0.05-0.20 Normal (applies to non-numeric results) [facility] ID Date Data Source [id number] 03/17/2020 08:34:00 AM [facility] Name Value Range Interpretation Code Description Data Elizabeth rce(s) Supporting Document(s) Thyroid Stimulate Hormone TSH 0.358-3.74 No rmal (applies to non-numeric results) [facility] ID Date Data Source [id number] 03/17/2020 08:31:00 AM [facility] Name Value Range Interpretation Code Description Data Elizabeth rce(s) Supporting Document(s) White Blood Count 3.5-10.5 Normal (applies to non-numeri c results) [facility] Red Blood Count 4.30-5.70 Below low normal [facility] Hemoglobin 13.5-17.5 Below low normal [facility] ospital Hematocrit 38.8-50.0 Normal (applies to non-numeric resul ts) [facility] Mean Corpuscular Volume 81.2-95.1 Above high normal [facility] Mean Corpuscular Hgb 25.6-32.2 Above high normal [facility] Mean Corpuscular Hgb Conc 32.0-36.0 Normal (applies to no n-numeric results) [facility] Red Cell Distribution Width 11.8-15.6 Normal (appli es to non-numeric results) [facility] Platelet Count 165 x10 3/uL 150-450 Normal (applies to non-numeric results) [facility] Mean Platelet Volume 9.4-12.4 Normal (applies to non-num martin results) [facility] Neutrophils% (Auto) 31.0-71.0 Normal (applies to non-nume conchita results) [facility] Lymphocytes% (Auto) 20.0-55.0 Below low normal [facility] Monocytes% (Auto) 4.0-12.0 Normal (applies to non-numeri c results) [facility] Eosinophils% (Auto) 1.0-8.0 Above high normal [facility] Basophils% (Auto) 0.0-2.0 Normal (applies to non-numeri c results) [facility] Immature Granulocytes% (Auto) 0.0-2.0 Normal (dmitry lies to non-numeric results) [facility] Neutrophils# (Auto) 1.50-6.20 Normal (applies to non-nume conchita results) [facility] Lymphocytes# (Auto) 1.20-4.00 Below low normal [facility] Monocytes# (Auto) 0.00-0.90 Normal (applies to non-numeri c results) [facility] Eosinophils# (Auto) 0.00-0.50 Above high normal [facility] Basophils# (Auto) 0.00-0.20 Normal (applies to non-numeri c results) [facility] Immature Granulocytes# (Auto) 0.00-7.00 No rmal (applies to non-numeric results) [facility] ID Date Data Source [id number] 01/26/2020 11:41:11 AM EDT [facility] Measurements & CalculationsHeight: 68 inches (5 [...] diagnosed with seizures 2.5 yrs ago at [facility]. 01/24/2020 on Mond ay was worst [...] program was about 1.5 yrs ago at [place], has detoxed 4 times for alcohol total. Pt has attended rehab at [facility] and [facility] previously. Currently with [facility], talks to [facility] once a week, next appointment is tomorrow. They suggested he meet with mental health there, he is considering this. Doesn't drive or "even ride a bike". Receives Vivitrol through [employer] monthly. Naltrexone as well that he takes twice daily prior to injections, but admits to not taking right now. Transitions of Care InboundProblem ReviewProblem List was reviewed and/or updated during this visit.Medication Reconciliation & ReviewMedication List was reviewed and/or updated during this visit, including review of any [id number] medications, herbal therapies, and/or supplements.Allergy ReviewAllergy List [...] risk of alcohol with seizures.Alcohol abuse (ICD-305.00) (KKD92-B40.10) Assessment: Instructions: Continue with [facility], consider more aggressive treatment like rehab or detox.Low back pain (ICD-724.2) (ECR41-L54.5) Assessment: Instructions: Supportive measures: heat/ice, gentle stretching, consider physical therapy. No muscle relaxers due to alcohol intake.Spasm of back muscles (ICD-724.8) ([id number]-E47.830) Assessment: Instructions: As above.Allergic rhinitis (ICD-477.9) (ICD10- J30.9) Assessment: Instructions: Refilled allergy medication and ventolin inhaler.Removed:Acute frontal sinusitis, unspecified (YVP62-Y57.10)Patient In structions/Care Plan: Other epilepsy- intractable- with [...] HFA 108 (90 BASE) MCG/ACT INHALATION AEROSOL [id number] puffs q 4-6 hours prn wheezing Qty: [...] ZYRTEC ALLERGY 10 MG ORAL TABLET Qty: [id number] Refills: 90[Tablet] To: ZYRTEC ALLERGY 10 MG ORAL TABLET-1 tab po daily Qty: 90[Tablet] Refills: 0 To: FLONASE ALLERGY RELIEF 50 MCG/ACT NASAL SUSPENSION-one spray/nostril QD Qty: 3[Container] Refills: 0From: ORAL SINGULAIR 10 MG ORAL TABLET Qty: [id number] Refills: 90[Tablet] To: SINGULAIR 10 MG ORAL TABLET-1 tab po at bedtime Qty: 90[Tablet] Refills: 0Allergies:* SEASONAL (Critical)Orders:Neurology Consult [CPT-29470] Adult - Ofc Vst, EST, Level IV [CPT-96590] Follow-Up Return to clinic: in 30 days for preventive care visitAdditional Follow-Up: annual PE with Dr. Cifuentesinical Visit Summary Completed Name Value Range Interpretation Code Description Data Elizabeth rce(s) Supporting Document(s) Procedure Social History No Information Vital Signs ID Date Data Source UNK Name Value Range Interpretation Code Description Data Source(s) Diastolic blood pressure 76 mm[Hg] 76 mm[Hg] [facility] ([facility]) Body height 68 [in_i] 68 [in_i] [facility] ([facility]) Body mass index (BMI) [Ratio] 24.3 kg/m2 24.3 k g/m2 [facility] ([facility]) Systolic blood pressure 111 mm[Hg] 111 mm[Hg] [facility] ([facility]) Body weight 2552 [oz_av] 2552 [oz_av] [facility] ([facility]) Body height 68 [in_i] 68 [in_i] [facility] ([facility]) Body height 68 [in_i] 68 [in_i] [facility] ([facility]) Diastolic blood pressure 80 mm[Hg] 80 mm[Hg] [facility] ([facility]) Body height 68 [in_i] 68 [in_i] [facility] ([facility]) Diastolic blood pressure 80 mm[Hg] 80 mm[Hg] [facility] ([facility]) Body height 68 [in_i] 68 [in_i] [facility] ([facility]) Body mass index (BMI) [Ratio] 24.9 kg/m2 24.9 k g/m2 [facility] ([facility]) Systolic blood pressure 119 mm[Hg] 119 mm[Hg] A THENA ([facility]) Body weight 2624 [oz_av] 2624 [oz_av] [facility] ([facility]) Body mass index (BMI) [Ratio] 24.9 kg/m2 24.9 k g/m2 [facility] ([facility]) Systolic blood pressure 119 mm[Hg] 119 mm[Hg] A THE[facility] ([facility]) Body weight 2624 [oz_av] 2624 [oz_av] [facility] ([facility]) Diastolic blood pressure 80 mm[Hg] 80 mm[Hg] [facility] ([facility]) Body height 68 [in_i] 68 [in_i] [facility] ([facility]) Body mass index (BMI) [Ratio] 24.9 kg/m2 24.9 k g/m2 [facility] ([facility]) Systolic blood pressure 119 mm[Hg] 119 mm[Hg] A THENA ([facility]) Body weight 2624 [oz_av] 2624 [oz_av] [facility] ([facility]) Diastolic blood pressure 80 mm[Hg] 80 mm[Hg] [facility] ([facility]) Body height 68 [in_i] 68 [in_i] [facility] ([facility]) Body mass index (BMI) [Ratio] 24.9 kg/m2 24.9 k g/m2 [facility] ([facility]) Systolic blood pressure 119 mm[Hg] 119 mm[Hg] A THENA ([facility]) Body weight 2624 [oz_av] 2624 [oz_av] [facility] ([facility]) Diastolic blood pressure 87 mm[Hg] 87 mm[Hg] [facility] ([facility]) Body height 68 [in_i] 68 [in_i] [facility] ([facility]) Body mass index (BMI) [Ratio] 23.81 kg/m2 23.81 kg/m2 [facility] ([facility]) Systolic blood pressure 125 mm[Hg] 125 mm[Hg] A THENA ([facility]) Body weight 2496 [oz_av] 2496 [oz_av] [facility] ([facility]) Diastolic blood pressure 87 mm[Hg] 87 mm[Hg] [facility] ([facility]) Body height 68 [in_i] 68 [in_i] [facility] ([facility]) Body mass index (BMI) [Ratio] 23.81 kg/m2 23.81 kg/m2 [facility] ([facility]) Systolic blood pressure 125 mm[Hg] 125 mm[Hg] A SC[facility] ([facility]) Body weight 2496 [oz_av] 2496 [oz_av] [facility] ([facility]) ID Date Data Source [id number] 11/03/2020 06:58:00 PM EDT [facility] Name Value Range Interpretation Code Description Data Source(s) Weight (Calculated Kilograms) 78.[address] [facility] Height (Calculated Centimeters) 172.[address] [facility] Body Mass Index (BMI) 26.1 26.1 [facility] ID Date Data Source [id number] 11/06/2020 06:37:00 AM EDT [facility] spital Name Value Range Interpretation Code Description Data Source(s) Weight (Calculated Kilograms) 68.67 68.67 [facility] Weight 2422.4 2422.4 [facility] pital Temperature Source 7 7 [facility] Temperature 97.6 97.6 [facility] spital Respiratory Effort 1 1 [facility] Respiratory Rate 18 18 [facility] Pulse Assessment Method 4 4 [facility] 68 68 [facility] Height (Calculated Centimeters) 172.72 172. 72 [facility] Height 68 68 [facility] Blood Pressure 122/68 122/68 [facility] Body Mass Index (BMI) 23.0 23.0 [facility] Weight (Calculated Kilograms) 68.67 68.67 [facility] Weight 2422.4 2422.4 [facility] pital Temperature Source 7 7 [facility] Temperature 97.6 97.6 [facility] spital Respiratory Effort 1 1 [facility] Respiratory Rate 18 18 [facility] Pulse Assessment Method 4 4 [facility] Pulse Rate 68 68 [facility] pital Height (Calculated Centimeters) 172.72 172. 72 [facility] Height 68 68 [facility] Blood Pressure 122/68 122/68 [facility] Body Mass Index (BMI) 23.0 23.0 [facility] Weight (Calculated Kilograms) 68.67 68.67 [facility] Weight 2422.4 2422.4 [facility] pital Temperature Source 7 7 [facility] Temperature 97.6 97.6 [facility] spital Respiratory Effort 1 1 [facility] Respiratory Rate 18 18 [facility] Pulse Assessment Method 4 4 [facility] Pulse Rate 68 68 [facility] pital Height (Calculated Centimeters) 172.72 172. 72 [facility] Height 68 68 [facility] pital Blood Pressure 122/68 122/68 [facility] Body Mass Index (BMI) 23.0 23.0 [facility] Weight (Calculated Kilograms) 68.67 68.67 [facility] Weight 2422.4 2422.4 [facility] pital Temperature Source 7 7 [facility] Temperature 97.1 97.1 [facility] spital Respiratory Effort 1 1 [facility] Respiratory Rate 18 18 [facility] Pulse Assessment Method 4 4 [facility] Pulse Rate 86 86 [facility] pital Height (Calculated Centimeters) 172.72 172. 72 [facility] Height 68 68 [facility] pital Blood Pressure 114/78 114/78 [facility] Body Mass Index (BMI) 23.0 23.0 [facility] Weight (Calculated Kilograms) 68.67 68.67 [facility] Weight 2422.4 2422.4 [facility] pital Temperature Source 3 3 [facility] Temperature 97.7 97.7 [facility] spital Respiratory Effort 1 1 [facility] Respiratory Rate 18 18 [facility] Pulse Assessment Method 4 4 [facility] Pulse Rate 80 80 [facility] pital Height (Calculated Centimeters) 172.72 172. 72 [facility] Height 68 68 [facility] pital Blood Pressure 138/85 138/85 [facility] Body Mass Index (BMI) 23.0 23.0 [facility] Weight (Calculated Kilograms) 68.67 68.67 [facility] Weight 2422.4 2422.4 [facility] pital Temperature 97.1 97.1 [facility] spital Respiratory Effort 1 1 [facility] Respiratory Rate 18 18 [facility] Pulse Rate 90 90 [facility] Height (Calculated Centimeters) 172.72 172. 72 [facility] Height 68 68 [facility] Blood Pressure 141/92 141/92 [facility] Body Mass Index (BMI) 23.0 23.0 [facility] Weight (Calculated Kilograms) 74.84 74.84 [facility] Height (Calculated Centimeters) 177.8 177. 8 [facility] Body Mass Index (BMI) 23.6 23.6 [facility] ID Date Data Source [id number] 11/02/2020 12:05:00 AM EDT [facility] spital Name Value Range Interpretation Code Description Data Source(s) Weight (Calculated Kilograms) 74.84 74.84 [facility] Height (Calculated Centimeters) 177.8 177. 8 [facility] Body Mass Index (BMI) 23.6 23.6 [facility] ID Date Data Source [id number] 04/10/2020 11:50:00 PM [facility] Name Value Range Interpretation Code Description Data Source(s) Weight (Calculated Kilograms) 78.[address] [facility] Height (Calculated Centimeters) 172.[address] [facility] Body Mass Index (BMI) 26.1 26.1 [facility] ID Date Data Source [id number] 11/22/2020 02:25:00 PM EDT [facility] spital Name Value Range Interpretation Code Description Data Source(s) Weight (Calculated Kilograms) 74.84 74.84 [facility] Weight 2528 2528 [facility] pital Temperature Source 7 7 [facility] Temperature 98.1 98.1 [facility] spital Respiratory Effort 1 1 [facility] Respiratory Rate 16 16 [facility] Pulse Assessment Method 4 4 [facility] Pulse Rate 70 70 [facility] pital Height (Calculated Centimeters) 177.8 177. 8 [facility] Height 68 68 [facility] pital Blood Pressure 100/65 100/65 [facility] Body Mass Index (BMI) 23.6 23.6 [facility] Weight (Calculated Kilograms) 74.84 74.84 [facility] Weight 2528 2528 [facility] pital Temperature Source 7 7 [facility] Temperature 98.1 98.1 [facility] spital Respiratory Effort 1 1 [facility] Respiratory Rate 16 16 [facility] Pulse Assessment Method 4 4 [facility] Pulse Rate 70 70 [facility] pital Height (Calculated Centimeters) 177.8 177. 8 [facility] Height 68 68 [facility] pital Blood Pressure 100/65 100/65 [facility] Body Mass Index (BMI) 23.6 23.6 [facility] Weight (Calculated Kilograms) 74.84 74.84 [facility] Weight 2528 2528 [facility] pital Temperature Source 7 7 [facility] Temperature [address] [facility] Respiratory Effort 1 1 [facility] Respiratory Rate 16 16 [facility] Pulse Assessment Method 4 4 [facility] Pulse Rate 70 70 [facility] pital Height (Calculated Centimeters) 177.8 177. 8 [facility] Height 68 68 [facility] Blood Pressure 100/65 100/65 [facility] Body Mass Index (BMI) 23.6 23.6 [facility] Weight (Calculated Kilograms) 74.84 74.84 [facility] Weight 2528 2528 [facility] pital Temperature Source 7 7 [facility] Temperature 98.1 98.1 [facility] spital Respiratory Effort 1 1 [facility] Respiratory Rate 16 16 [facility] Pulse Assessment Method 4 4 [facility] Pulse Rate 70 70 [facility] pital Height (Calculated Centimeters) 177.8 177. 8 [facility] Height 68 68 [facility] pital Blood Pressure 100/65 100/65 [facility] Body Mass Index (BMI) 23.6 23.6 [facility] Weight (Calculated Kilograms) 74.84 74.84 [facility] Temperature Source 7 7 [facility] Temperature 97.9 97.9 [facility] spital Respiratory Effort 1 1 [facility] Respiratory Rate 18 18 [facility] Pulse Assessment Method 4 4 [facility] Pulse Rate 77 77 [facility] pital Height (Calculated Centimeters) 177.8 177. 8 [facility] Blood Pressure 128/79 128/79 [facility] Body Mass Index (BMI) 23.6 23.6 [facility] Weight (Calculated Kilograms) 74.84 74.84 [facility] Temperature Source 7 7 [facility] Temperature 97.9 97.9 [facility] spital Respiratory Effort 1 1 [facility] Respiratory Rate 18 18 [facility] Pulse Assessment Method 4 4 [facility] Rate 77 77 [facility] Height (Calculated Centimeters) 177.8 177. 8 [facility] Blood Pressure 128/79 128/79 [facility] Body Mass Index (BMI) 23.[address] [place] [address] Weight (Calculated Kilograms) 74.84 74.84 [facility] Temperature Source 7 7 [facility] Temperature 97.9 97.9 [facility] spital Respiratory Effort 1 1 [facility] Respiratory Rate 16 16 [facility] Pulse Assessment Method 4 4 [facility] Pulse Rate 85 85 [facility] Height (Calculated Centimeters) 177.8 177. 8 [facility] Blood Pressure 150/91 150/91 [facility] Body Mass Index (BMI) 23.[address] Patient Treatment Plan of Care Planned Activity Planned Date Details Description Data Source (s) Cyclobenzaprine hydrochloride 5 MG Oral Tablet 10/12/2020 12:00:00 AM EDT LINNEA ([facility]) paroxetine 10 mg tablet 05/11/2020 12:00:00 AM EST [facility] ([facility]) paroxetine 10 mg tablet 05/11/2020 12:00:00 AM EST [facility] ([facility]) paroxetine 10 mg tablet 05/11/2020 12:00:00 AM EST [facility] ([facility]) paroxetine 10 mg tablet 05/11/2020 12:00:00 AM EST [facility] ([facility]) Naltrexone 112 MG/ML Injectable Suspension [Vivitrol] [facility]NEA ([facility]) Trazodone Hydrochloride 50 MG Oral Tablet [facility]NEA ([facility]) Trazodone Hydrochloride 100 MG Oral Tablet [facility]NEA ([facility]) Nicotine 4 MG Oral Lozenge A THENA ([facility]) Naltrexone hydrochloride 50 MG Oral Tablet [facility]NE[facility] ([facility]) Folic Acid 1 MG Oral Tablet [facility]NE[facility] ([facility]) Carbamazepine 200 MG Oral Tablet [facility] ([facility]) Acamprosate calcium 333 MG Delayed Release Oral Tablet [facility]NE[facility] ([facility]) Trazodone Hydrochloride 50 MG Oral Tablet [facility] ([facility]) Trazodone Hydrochloride 100 MG Oral Tablet [facility]NEA ([facility]) Trazodone Hydrochloride 50 MG Oral Tablet [facility]NE[facility] ([facility]) Trazodone Hydrochloride 100 MG Oral Tablet [facility]NE[facility] ([facility]) Trazodone Hydrochloride 50 MG Oral Tablet [facility]NE[facility] ([facility]) Trazodone Hydrochloride 100 MG Oral Tablet [facility]NE[facility] ([facility])
--- NOTE | 2021-03-04 17:56 | HPEPDOC ---
General Date of Admission Mar 04, 2021 Date of Service: Mar 04, 2021 Chief Complaint The patient is a 55-year-old male admitted with a reason for visit of Hip Pain From Fall. Source: Patient History of Present Illness Mr. Dorantes is a 55 year old male with anxiety/depression, chronic back pain, and alcohol use who presents with lightheadedness with standing, frequent falls, and melena. He denies any recent trauma, coughing up blood, or seeing blood in stool. He does notices about two weeks ago, he started to have melena. He also reports dizziness with standing which results in frequent falls. He has been having right hip pain because of these falls. He also started to notice left thigh numbness. Today, he came into the ED for evaluation. While here, his blood pressure has been stable, and he has been afebrile. He does have mild sinus tachycardia of 101. Labs were significant for a hemoglobin of 5.5, WBC 17.4, sodium of 129, chloride of 87, and an undetectable level of carbamazepine. When I spoke with patient, he tells me he also has nausea and poor appetite. He has not eaten much in the past few days. I reached out to GI. Due to his age, patient will most likely need both an EGD and colonoscopy. Patient will be admitted for acute symptomatic anemia with suspected GI bleed. Home Medications Scheduled Folic Acid (Folic Acid) 1 Mg Tablet, PO DAILY, (Reported) Montelukast Sodium (Montelukast Sodium) 10 Mg Tablet, PO DAILY, (Reported) Paroxetine HCl (Paxil) 10 Mg Tablet, 1 TAB PO DAILY, (Reported) Thiamine HCl (Vitamin B-1) 100 Mg Tablet, PO DAILY, (Reported) Miscellaneous Medications Carbamazepine (Tegretol) 200 Mg Tablet, 200 MG PO, (Reported) Cetirizine HCl (Cetirizine HCl) 10 Mg Tablet, (Reported) Naltrexone HCl (Naltrexone HCl) 50 Mg Tablet, (Reported) Allergies Coded Allergies: No Known Allergies (Unverified , 07/12/16) Past Medical History Medical History 1. Seizure disorder 2. Chronic back pain 3. Anxiety/depression Surgical History Denies any past surgeries Family History Father: Does not know father's medical history. He is . Mother: History of unknown caner. Alive. Social History * Smoker: current smoker (46 years about 2ppd) Alcohol: occationally (Drinks mostly on the weekends) Drugs: marijuana A-FIB/CHADSVASC A-FIB History Current/History of A-Fib/PAF?: No Review of Systems Constitutional: Denies: Chills, Fever Eyes: Reports: Other (Sometimes have white spots in his vision. When he has these white spots, he knows he's going to have a seizure) ENT: Denies: Sore Throat Skin: Denies: Rash Pulmonary: Reports: Cough (chronic dry cough); Denies: Dyspnea Cardiovascular: Denies: Chest Pain Gastrointestinal: Reports: Nausea, Melena; Denies: Abdominal Pain Genitourinary: Denies: Dysuria Hematologic: Denies: Bruising Musculoskeletal: Reports: Muscle Pain (right hip) Neurological: Reports: Numbness (Left thigh) Psych: Reports: Anxiety, Depression Physical Examination General Exam: Positive: Alert, Cooperative Eye Exam: Positive: EOMI; Negative: Sclera icteric ENT Exam: Positive: Atraumatic Neck Exam: Positive: Supple Chest Exam: Positive: Clear to auscultation Heart Exam: Positive: Tachycardic, Regular Rhythm Extremity Exam: Negative: Edema Skin Exam: Positive: Other skin issue (No bruising of right hip) Neuro Exam: Positive: Normal Speech, Cranial Nerves 3-12 NL Psych Exam: Positive: Mental status NL, Anxiety Vital Signs Vital Signs Date Time Temp Pulse Resp B/P (MAP) Pulse Ox O2 Delivery O2 Flow Rate FiO2 03/04/21 15:30 101 16 142/74 (96) 96 Room Air 03/04/21 13:48 99.4 Laboratory Data Labs 24H Laboratory Tests 2 03/04/21 15:02: Immature Granulocyte % (Auto) 2.8, Neutrophils (%) (Auto) 79.3H, Lymphocytes (%) (Auto) 10.3L, Monocytes (%) (Auto) 7.3, Eosinophils (%) (Auto) 0.1, Basophils (%) (Auto) 0.2, Neutrophils # (Auto) 13.8H, Lymphocytes # (Auto) 1.8, Monocytes # (Auto) 1.3H, Eosinophils # (Auto) 0.0, Basophils # (Auto) 0.0, Nucleated Red Blood Cells % (auto) 0.7H, Anion Gap 14, Glomerular Filtration Rate > 60.0, Calcium Level 8.4L, Total Bilirubin 0.8, Direct Bilirubin 0.4H, Aspartate Amino Transf (AST/SGOT) 24, Alanine Aminotransferase (ALT/SGPT) 30, Alkaline Phosphatase 62, Total Creatine Kinase 84, Creatine Kinase MB 1.8, Creatine Kinase MB Relative Index 2.14, Troponin I < 0.02, Total Protein 7.0, Albumin 2.3L, Albumin/Globulin Ratio 0.5, Thyroid Stimulating Hormone (TSH) 1.820, Free Thyroxine 1.45 03/04/21 15:03: Carbamazepine (Tegretol) Level < 0.5L 03/04/21 16:22: CBC/BMP Laboratory Tests 03/04/21 15:02 Assessment/Plan Mr. Dorantes is a 55 year old male with anxiety/depression, chronic back pain, and alcohol use who presents with lightheadedness with standing, frequent falls, and melena. Patient most likely has a GI bleed leading to symptomatic anemia leading to his frequent falls. GI has been consulted. Plan for GolT-Quad 22 tonight and EGD and colonoscopy tomorrow. GI requests patient finishes GolT-Quad 22 by 6AM. Plan / VTE VTE Prophylaxis Ordered?: Yes Plan Plan 1. Symptomatic blood loss anemia -Suspecting GI bleed given change in stool -GI consulted, recommendations appreciated -Golytely and EGD/Colonoscopy tomorrow -Protonix BID -2u pRBC 2. Alcohol use disorder -CIWA -Banana bag 3. Hyponatremia -Suspecting from poor oral intake -Banana bag has NS -Repeat BMP later tonight 4. Hypokalemia -Possibly secondary to poor oral intake -Potassium supplementation -Will check magnesium level 5. Seizure disorder -Pending med rec -When completed, will add medication 6. Anxiety/depression -Pending med rec -When completed, will add 7. DVT ppx -TEDs Disposition: Pending stability of H&H and EGD/colonoscopy JASMEET GREGORY DO Mar 04, 2021 17:56
[2021-03-04] MEDS ORDERED: BISACODYL 5 MG TAB PO ONE (18:00)
[2021-03-04 18:14] LABS: FERRITIN 809 NG/ML (26-388); IRON (FE) 15 UG/DL (65-175); LDH LACTATE DEHYDROGENASE 246 U/L (87-241); MAGNESIUM LEVEL 2.6 MG/DL (1.8-2.4); PERCENT SATURATION 6.3 % (19.7-50.0); TOTAL IRON BINDING CAPACITY 239 UG/DL (250-450)
[2021-03-04] MEDS ORDERED: FLUTISP NARES (18:18)
[2021-03-04] MEDS ORDERED: ALBU8.5H INH (18:18)
[2021-03-04] MEDS ORDERED: HOME MED LIST COMPLETE! XX SCH (18:20)
[2021-03-04 18:36] LABS: INR 1.1; PROTHROMBIN TIME 14.6 SECONDS (12.7-14.5)
[2021-03-04 18:37] LABS: PARTIAL THROMBOPLASTIN TIME 22.7 SECONDS (25.9-37.0)
[2021-03-04 19:40] VITALS: BP 111/58
[2021-03-04 19:51] VITALS: BP 102/59
[2021-03-04] MEDS ORDERED: MULTIVITAMIN -ADULT INJECTION 10 ML, THIAMINE INJection 100 MG, FOLIC ACID 1 MG in NS 1... IV ONE (20:00)
--- NOTE | 2021-03-04 20:32 | ECGEPIP ---
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
[2021-03-04 20:51] VITALS: BP 104/79
[2021-03-04 21:23] LABS: BLOOD UREA NITROGEN 8 MG/DL (7-18); CALCIUM LEVEL 7.8 MG/DL (8.5-10.1); CARBON DIOXIDE LEVEL 30 MEQ/L (21-32); CHLORIDE LEVEL 92 MEQ/L (98-107); CREATININE FOR GFR 0.59 MG/DL (0.70-1.30); GLOMERULAR FILTRATION RATE > 60.0 (>56); GLUCOSE, FASTING 95 MG/DL (70-100); MAGNESIUM LEVEL 2.7 MG/DL (1.8-2.4); POTASSIUM SERUM 4.4 MEQ/L (3.5-5.1); SODIUM LEVEL 131 MEQ/L (136-145)
[2021-03-04 21:30] VITALS: BP 107/58
[2021-03-05] VITALS (11 sets, daily range): BP systolic 103–135; BP diastolic 60–74
[2021-03-05] MEDS ORDERED: GOLYTELY SOLN 4000 ML BTL PO ONE ×2 (02:00→10:00)
[2021-03-05] MEDS: PANTOPRAZOLE 40MG VIAL (C9113 PER 1) IV SCH ×2 (06:23→20:07)
[2021-03-05 06:28] LABS: MEAN CORPUSCULAR HEMOGLOBIN 31.3 pg (27.0-33.0); MEAN CORPUSCULAR HGB CONC 32.2 g/dl (32.0-36.5); MEAN CORPUSCULAR VOLUME 97.2 fl (80.0-96.0); PLATELET COUNT, AUTOMATED 459 10^3/uL (150-450); RED BLOOD COUNT 1.79 10^6/uL (4.30-6.10); WHITE BLOOD COUNT 9.7 10^3/uL (4.0-10.0)
[2021-03-05 06:46] LABS: HEMATOCRIT 17.4 % (42.0-52.0); HEMOGLOBIN 5.6 g/dl (13.5-17.5)
[2021-03-05 06:53] LABS: BLOOD UREA NITROGEN 6 MG/DL (7-18); CALCIUM LEVEL 7.7 MG/DL (8.5-10.1); CARBON DIOXIDE LEVEL 28 MEQ/L (21-32); CHLORIDE LEVEL 94 MEQ/L (98-107); CREATININE FOR GFR 0.61 MG/DL (0.70-1.30); GLOMERULAR FILTRATION RATE > 60.0 (>56); GLUCOSE, FASTING 91 MG/DL (70-100); POTASSIUM SERUM 3.2 MEQ/L (3.5-5.1); SODIUM LEVEL 131 MEQ/L (136-145)
[2021-03-05] MEDS ORDERED: POTASSIUM CHLORIDE 10% LIQ 20 MEQ/15 ML UDC PO ONE (07:10)
[2021-03-05] MEDS: NS 1,000 ML IV SCH ×4 (08:17→20:11)
[2021-03-05] MEDS: PARoxetine 10MG TABLET PO SCH (09:00)
[2021-03-05] MEDS: CETIRIZINE (ZyrTEC) 10 MG TAB PO SCH (09:00)
[2021-03-05] MEDS ORDERED: FLUTICASONE PROP 0.05% NASAL SPRAY 16 GM (FLONASE) NARES PRN (10:00)
--- NOTE | 2021-03-05 10:00 | IPNPDOC ---
Subjective Date Seen The patient was seen on 03/05/21. Subjective Chief Complaint/HPI Mr. Dorantes is a 55 year old male with anxiety/depression, chronic back pain, and alcohol use who presents with lightheadedness with standing, frequent falls, and melena. Last night, he was only able to receive 1u pRBC. Unclear why he only got 1u rather than the 2u ordered. His hemoglobin remained the same after the 1u. Requested that another 2u be given using the ED transfusion order. Otherwise, he had refused the Golytely because he has had a bad experience with it. He had a colonoscopy about 4 years ago. This morning, I explained the important of having the colonoscopy. He agree to the Golytely if he could have a bedside commode, toilet paper, and baby wipes. Objective Physical Examination General Exam: Positive: Alert, Cooperative Eye Exam: Positive: EOMI; Negative: Sclera icteric ENT Exam: Positive: Atraumatic Neck Exam: Positive: Supple Chest Exam: Positive: Clear to auscultation Heart Exam: Positive: Rate Normal, Regular Rhythm Extremity Exam: Negative: Edema Skin Exam: Positive: Other skin issue (No bruising of right hip) Neuro Exam: Positive: Normal Speech, Cranial Nerves 3-12 NL Psych Exam: Positive: Mental status NL, Anxiety Assessment /Plan Assessment Mr. Dorantes is a 55 year old male with anxiety/depression, chronic back pain, and alcohol use who presents with lightheadedness with standing, frequent falls, and melena. Patient most likely has a GI bleed leading to symptomatic anemia leading to his frequent falls. GI has been consulted. Patient will drink Golytely this morning. Hopeful that he will make it in time for the colonoscopy. Otherwise, his hemoglobin did not respond appropriately to the 1u pRBC. Will request another 2u to be given. Plan/VTE VTE Prophylaxis Ordered?: Yes Plan 1. Symptomatic blood loss anemia -Suspecting GI bleed given change in stool -GI consulted, recommendations appreciated -Protonix BID -1u pRBC given, ordered for 2u more 2. Alcohol use disorder -CIWA -Banana bag 3. Hyponatremia -Suspecting from poor oral intake -Banana bag has NS -Running NS -Improved 4. Hypokalemia -Possibly secondary to poor oral intake -Potassium supplementation -Magnesium is not low (2.7) 5. Seizure disorder -Continue carbamazepine 6. Anxiety/depression -Continue paroxetine and buspirone 7. DVT ppx -TEDs Disposition: Pending improvement of H&H and EGD/colonoscopy VS, I&O, 24H, [facility] Vital Signs/I&O Vital Signs Date Time Temp Pulse Resp B/P (MAP) Pulse Ox O2 Delivery O2 Flow Rate FiO2 03/05/21 09:30 81 98 03/05/21 09:00 97.2 18 104/66 (79) Room Air I&O- Last 24 Hours up to 6 AM 03/05/21 06:00 Intake Total 528 ml Balance 528 ml Laboratory Data 24H LABS Laboratory Tests 2 03/04/21 15:02: Immature Granulocyte % (Auto) 2.8, Neutrophils (%) (Auto) 79.3H, Lymphocytes (%) (Auto) 10.3L, Monocytes (%) (Auto) 7.3, Eosinophils (%) (Auto) 0.1, Basophils (%) (Auto) 0.2, Neutrophils # (Auto) 13.8H, Lymphocytes # (Auto) 1.8, Monocytes # (Auto) 1.3H, Eosinophils # (Auto) 0.0, Basophils # (Auto) 0.0, Reticulocyte # (auto) 250.6H, Nucleated Red Blood Cells % (auto) 0.7H, Percent Reticulocyte Count 14.6H, Reticulocyte Hemoglobin Equivalent 30.0, Anion Gap 14, Glomerular Filtration Rate > 60.0, Calcium Level 8.4L, Magnesium Level 2.6H, Iron Level 15L, Total Iron Binding Capacity 239L, Transferrin % Saturation 6.3L, Ferritin 809H, Total Bilirubin 0.8, Direct Bilirubin 0.4H, Aspartate Amino Transf (AST/SGOT) 24, Alanine Aminotransferase (ALT/SGPT) 30, Alkaline Phosphatase 62, Lactate Dehydrogenase 246H, Total Creatine Kinase 84, Creatine Kinase MB 1.8, Creatine Kinase MB Relative Index 2.14, Troponin I < 0.02, Total Protein 7.0, Albumin 2.3L, Albumin/Globulin Ratio 0.5, Thyroid Stimulating Hormone (TSH) 1.820, Free Thyroxine 1.45 03/04/21 15:03: Carbamazepine (Tegretol) Level < 0.5L 03/04/21 15:08: 03/04/21 16:22: Coronavirus (COVID-19)(PCR) NEGATIVE, Influenza Type A (RT-PCR) NEGATIVE, Influenza Type B (RT-PCR) NEGATIVE, Respiratory Syncytial Virus (PCR) NEGATIVE 03/04/21 18:13: Prothrombin Time 14.6H, Prothromb Time International Ratio 1.10, Activated Partial Thromboplast Time 22.7L, Anion Gap 9, Glomerular Filtration Rate > 60.0, Calcium Level 7.8L, Magnesium Level 2.7H 03/05/21 06:08: Anion Gap 9, Glomerular Filtration Rate > 60.0, Calcium Level 7.7L, Nucleated Red Blood Cells % (auto) 0.6H CBC/BMP Laboratory Tests 03/04/21 15:02 03/04/21 18:13 03/05/21 06:08 JASMEET GREGORY DO Mar 05, 2021 10:00
[2021-03-05] MEDS ORDERED: PILL CUTTER 1 EACH XX PRN (10:25)
[2021-03-05 10:28] LABS: VITAMIN B12 LEVEL 794 PG/ML (247-911)
[2021-03-05] MEDS: ALBUTEROL 90 MCG/ACT 8GM HFA INHALER INH SCH ×3 (12:00→20:00)
[2021-03-05 17:32] LABS: HEMATOCRIT 27.4 % (42.0-52.0); MEAN CORPUSCULAR HEMOGLOBIN 30.1 pg (27.0-33.0); MEAN CORPUSCULAR HGB CONC 32.8 g/dl (32.0-36.5); MEAN CORPUSCULAR VOLUME 91.6 fl (80.0-96.0); PLATELET COUNT, AUTOMATED 478 10^3/uL (150-450); RED BLOOD COUNT 2.99 10^6/uL (4.30-6.10); WHITE BLOOD COUNT 9.2 10^3/uL (4.0-10.0)
[2021-03-05 17:39] LABS: BLOOD UREA NITROGEN 5 MG/DL (7-18); CALCIUM LEVEL 8.2 MG/DL (8.5-10.1); CARBON DIOXIDE LEVEL 29 MEQ/L (21-32); CHLORIDE LEVEL 100 MEQ/L (98-107); CREATININE FOR GFR 0.62 MG/DL (0.70-1.30); GLOMERULAR FILTRATION RATE > 60.0 (>56); GLUCOSE, FASTING 84 MG/DL (70-100); POTASSIUM SERUM 3.8 MEQ/L (3.5-5.1); SODIUM LEVEL 134 MEQ/L (136-145)
[2021-03-05] MEDS ORDERED: fentaNYL 100 MCG/2 ML INJECTION (J3010) As Ordered ONE (17:51)
[2021-03-05] MEDS ORDERED: MIDAZOLAM INJ 2MG/2ML VIAL (J2250 PER 1MG) As Ordered ONE (17:51)
[2021-03-05] MEDS ORDERED: propofoL 200 MG/20 ML VIAL As Ordered ONE (17:52)
[2021-03-05] MEDS ORDERED: LIDOCAINE 2% 100MG/5ML SDV (FOR ANES.) As Ordered ONE (17:56)
--- NOTE | 2021-03-05 18:28 | ROOR ---
Patient Name: Sanya Dorantes Procedure Date: 03/05/2021 2:42 PM Date of : 1965 Age: 55 Room: Main OR Gender: Male Note Status: Finalized Procedure: Upper GI endoscopy Indications: Acute post hemorrhagic anemia Providers: Kenny Snyder MD Referring MD: Aden Alves Do Requesting Provider: Medicines: Monitored Anesthesia Care Complications: No immediate complications. Procedure: Pre-Anesthesia Assessment: - Prior to the procedure, a History and Physical was performed, and patient medications and allergies were reviewed. The patient is competent. The risks and benefits of the procedure and the sedation options and risks were discussed with the patient. All questions were answered and informed consent was obtained. Patient identification and proposed procedure were verified by the physician, the nurse and the anesthesiologist in the procedure room. Mental Status Examination: alert and oriented. Airway Examination: normal oropharyngeal airway and neck mobility. Respiratory Examination: clear to auscultation. CV Examination: normal. Prophylactic Antibiotics: The patient does not require prophylactic antibiotics. Prior Anticoagulants: The patient has taken no previous anticoagulant or antiplatelet agents. ASA Grade Assessment: II - A patient with mild systemic disease. After reviewing the risks and benefits, the patient was deemed in satisfactory condition to undergo the procedure. The anesthesia plan was to use monitored anesthesia care (MAC). Immediately prior to administration of medications, the patient was re-assessed for adequacy to receive sedatives. The heart rate, respiratory rate, oxygen saturations, blood pressure, adequacy of pulmonary ventilation, and response to care were monitored throughout the procedure. The physical status of the patient was re-assessed after the procedure. The Endoscope was introduced through the mouth, and advanced to the second part of duodenum. The upper GI endoscopy was accomplished without difficulty. The patient tolerated the procedure well. Findings: The examined esophagus was normal. The Z-line was regular and was found at the gastroesophageal junction. Scattered mild inflammation characterized by erosions and granularity was found in the gastric antrum. Decreased folds were found in the duodenal bulb, decreased folds were found in the second portion of the duodenum and thickened folds were found in the second portion of the duodenum. Biopsies for histology were taken with a cold forceps for evaluation of celiac disease. Verification of patient identification for the specimen was done by the physician and nurse using the patient's name, date and medical record number. Estimated blood loss was minimal. Impression: - Normal esophagus. - Z-line regular, at the gastroesophageal junction. - Gastritis. - Duodenal mucosal changes seen, suspicious for celiac disease. Biopsied. Recommendation: - Patient has a contact number available for emergencies. The signs and symptoms of potential delayed complications were discussed with the patient. Return to normal activities tomorrow. Written discharge instructions were provided to the patient. - High fiber diet. - Continue present medications. - Await pathology results. - Use Prilosec (omeprazole) 40 mg PO daily for 6 weeks. - Perform a colonoscopy based on the clinical course. Patient is recommended inpatient Colonsocopy but he refused and wanted to get it outpatient. - Observe patient's clinical course and Monitor hemoglobin and hematocrit. ( if unstable hemoglobin or symptoms consider sooner colonoscopy) - Please call GI clinic @ # [phone] to make follow up appointment for Colonoscopy electively. - Return to GI clinic. - Return to primary care physician. Procedure Code(s): --- Professional --- 34002, Esophagogastroduodenoscopy, flexible, transoral; with biopsy, single or multiple Diagnosis Code(s): --- Professional --- K29.70, Gastritis, unspecified, without bleeding K31.89, Other diseases of stomach and duodenum D62, Acute posthemorrhagic anemia CPT copyright 2019 [employer]. All rights reserved. The codes documented in this report are preliminary and upon linen supervisor review may be revised to meet current compliance requirements. Kenny Snyder MD Kenny Snyder MD 03/05/2021 6:27:15 PM Electronically signed by Kenny Snyder MD Number of Addenda: 0 Note Initiated On: 03/05/2021 2:42 PM Estimated Blood Loss: Estimated blood loss was minimal.
--- NOTE | 2021-03-05 18:39 | CR.PDOC ---
General Date of Consultation: Mar 04, 2021 Referring Provider: JASMEET GREGROY DO Attending Physician: KENNY GARCIA MD Consultation Referring physician / PCP : Dr. Gregory Reason for consult: New onset symptomatic anemia HPI: 55 year old male patient with anxiety/depression, chronic back pain, and heavy alcohol use presented to ER for symptoms of lightheadedness with standing, frequent falls, and dark stools. Patient was noted to have severe anemia in labs showing hemoglobin level of 5.5. Gi was consulted for the same. Patient reported having symptoms of dark stools over the past 1-2 weeks and he noted having increasing dizziness and frequent falls over this period. Patient denies any recent trauma, coughing up blood, or seeing blood in stool. He reported nausea and poor appetite and is not eating well lately but is still drinking alcohol almost daily. 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 : No blood in urine, No burning sensation of the urine ENT: No ear discharge/ pain, No dysphagia. Eyes: No photophobia. Skin: No rash Home medications: reviewed. No Plavix and No anticoagulants Medical h/o: As above. Surgical h/o: None on abdomen. Social h/o: Social Alcohol, Denies smoking, IVDA/ drugs. Family h/o of GI cancers reviewed. Prior Endoscopies: Colonoscopy for screening by Dr. Helms in 2017 which showed tubular adenoams- removed and recommended repeat colonoscopy in 3 years. . Prior GI evaluation: Follows with Dr. Helms. Exam: Vitals: reviewed General: Alert and oriented x 3, not in acute distress HEENT: No pallor, No icterus. Normal oropharynx, NO cervical lymphadenopathy. Chest: symmetric with bilateral air entry, CVS: S1, S2 heard, Abdomen: non-distended, soft, non-tender, no rigidity or guarding, no palpable masses, normal bowel sounds heard. Rectal exam: Patient refused. Extremities: pulses palpable, no pedal edema, BAKED GOODS STOCK CLERK: no focal motor or sensory deficits. Moves all extremities Skin: no rash. Labs: reviewed. Imaging: reviewed. Impression: -- New onset symptomatic anemia with dark stools in past 1-2 weeks and no diarrhea and no overt bleeding Needs further evaluation -- DDxPUD vs AVMs vs less likely Variceal bleeding and rule out lower GI bleeding. Recommendations: -- Patient educated about the prior test results and all questions answered. -- NPO for now -- IV hydration and correction of the electrolytes -- Monitor Hemoglobin levels and transfuse to hemoglobin level of 8-9. -- Patient is recommended EGD and Colonsocopy but due to his past colonoscopy , patient just wanted to do EGD and refused Colonoscopy as inpatient. -- Patient educated about the procedure, indications, risks (including but not limited to pancreatitis, bleeding, infection, perforation, anesthesia risks, including ), benefits and all alternatives including conservative measures without intervention. Patient verbalized understanding and consented for the procedure. -- Please follow operative note for post procedure recommendations. -- Plan of care educated to patient and patient verbalized understanding and agreed. All questions answered. -- Recommendations communicated to primary team. Vital Signs/I&O Vital Signs Date Time Temp Pulse Resp B/P (MAP) Pulse Ox O2 Delivery O2 Flow Rate FiO2 03/05/21 17:37 97.9 79 18 121/74 (90) 100 Room Air I&O- Last 24 Hours up to 6 AM 03/05/21 06:00 Intake Total 528 ml Balance 528 ml Laboratory Data Labs 24H Laboratory Tests 2 03/05/21 06:08: Nucleated Red Blood Cells % (auto) 0.6H, Anion Gap 9, Glomerular Filtration Rate > 60.0, Calcium Level 7.7L 03/05/21 17:04: Nucleated Red Blood Cells % (auto) 0.4H, Anion Gap 5L, Glomerular Filtration Rate > 60.0, Calcium Level 8.2L CBC/BMP Laboratory Tests 03/05/21 06:08 03/05/21 17:04 Allergies Coded Allergies: No Known Allergies (Unverified , 07/12/16) Home Medications Scheduled Albuterol Sulfate (Albuterol Sulfate Hfa) 8.5 Gm Hfa.aer.ad, 2 PUFF INH QID, (Reported) Buspirone HCl (Buspirone HCl) 7.5 Mg Tablet, 7.5 MG PO BID, (Reported) Carbamazepine (Tegretol) 200 Mg Tablet, 200 MG PO BID, (Reported) Cetirizine HCl (Cetirizine HCl) 10 Mg Tablet, 10 MG PO DAILY, (Reported) Montelukast Sodium (Montelukast Sodium) 10 Mg Tablet, 10 MG PO QHS, (Reported) Naltrexone HCl (Naltrexone HCl) 50 Mg Tablet, 50 MG PO QHS, (Reported) Paroxetine HCl (Paxil) 10 Mg Tablet, 10 MG PO DAILY, (Reported) Scheduled PRN Fluticasone Propionate (Fluticasone Propionate) 16 Gm Louin.susp, 1 SPRAY NARES BID PRN for CONGESTION, (Reported) KENNY GARCIA MD Mar 05, 2021 18:38
[2021-03-05] MEDS ORDERED: ONDANSETRON 4MG/2ML VIAL IV PRN (18:40)
[2021-03-05] MEDS: busPIRone 5 MG TAB PO SCH ×2 (19:50→20:06)
[2021-03-05] MEDS: carBAMazepine 200MG TABLET PO SCH ×2 (19:51→20:16)
[2021-03-05] MEDS ORDERED: MONTELUKAST 10 MG TAB PO SCH (21:00)
[2021-03-06] VITALS: BP 100/55
[2021-03-06] MEDS: NS 1,000 ML IV SCH (01:22)
[2021-03-06 04:00] VITALS: BP 127/72
[2021-03-06] MEDS: PANTOPRAZOLE 40MG VIAL (C9113 PER 1) IV SCH (04:01)
[2021-03-06 05:25] LABS: HEMATOCRIT 24.3 % (42.0-52.0); MEAN CORPUSCULAR HEMOGLOBIN 30.1 pg (27.0-33.0); MEAN CORPUSCULAR HGB CONC 32.9 g/dl (32.0-36.5); MEAN CORPUSCULAR VOLUME 91.4 fl (80.0-96.0); PLATELET COUNT, AUTOMATED 404 10^3/uL (150-450); RED BLOOD COUNT 2.66 10^6/uL (4.30-6.10); WHITE BLOOD COUNT 7.2 10^3/uL (4.0-10.0)
[2021-03-06 06:09] LABS: BLOOD UREA NITROGEN 5 MG/DL (7-18); CALCIUM LEVEL 7.8 MG/DL (8.5-10.1); CARBON DIOXIDE LEVEL 24 MEQ/L (21-32); CHLORIDE LEVEL 101 MEQ/L (98-107); CREATININE FOR GFR 0.58 MG/DL (0.70-1.30); GLOMERULAR FILTRATION RATE > 60.0 (>56); GLUCOSE, FASTING 87 MG/DL (70-100); POTASSIUM SERUM 3.2 MEQ/L (3.5-5.1); SODIUM LEVEL 134 MEQ/L (136-145)
[2021-03-06] MEDS: ALBUTEROL 90 MCG/ACT 8GM HFA INHALER INH SCH ×2 (07:27→10:42)
[2021-03-06 08:00] VITALS: BP_SYST 100
[2021-03-06] MEDS ORDERED: POTASSIUM CHLORIDE 10MEQ SR TABLET PO ONE (08:00)
[2021-03-06] MEDS: carBAMazepine 200MG TABLET PO SCH (08:17)
[2021-03-06] MEDS: busPIRone 5 MG TAB PO SCH (08:17)
[2021-03-06] MEDS: PARoxetine 10MG TABLET PO SCH (08:18)
[2021-03-06] MEDS: CETIRIZINE (ZyrTEC) 10 MG TAB PO SCH (08:18)
[2021-03-06 12:00] VITALS: BP 103/63
[2021-03-06 12:11] LABS: HEMOGLOBIN 8.9 g/dl (13.5-17.5); MEAN CORPUSCULAR HEMOGLOBIN 30.1 pg (27.0-33.0); MEAN CORPUSCULAR VOLUME 91.2 fl (80.0-96.0); PLATELET COUNT, AUTOMATED 419 10^3/uL (150-450); RED BLOOD COUNT 2.96 10^6/uL (4.30-6.10); WHITE BLOOD COUNT 6.8 10^3/uL (4.0-10.0)
[2021-03-06] MEDS ORDERED: OMEP40CA4 PO (13:05)
--- NOTE | 2021-03-06 15:34 | DS.PDOC ---
Discharge Summary General Date of Admission Mar 04, 2021 at 17:22 Date of Discharge 03/06/21 Discharge Summary PROCEDURES PERFORMED DURING STAY: EGD: Impression: - Normal esophagus. - Z-line regular, at the gastroesophageal junction. - Gastritis. - Duodenal mucosal changes seen, suspicious for celiac disease. Biopsied. DISCHARGE DIAGNOSES: GIB Acute Symptomatic Post Hemorrhagic anemia Gastritis Hypokalemia Hyponatremia SECONDARY DIAGNOSIS: Seizure disorder Alcohol abuse Anxiety/depression, chronic back pain, HOSPITAL COURSE: Mr. Dorantes is a 55 year old male with anxiety/depression, chron ic back pain, and alcohol use who presented with lightheadedness with standing, frequent falls, and melena. Patient had GI bleed leading to symptomatic post hemorrhagic anemia leading to his frequent falls. Had EGD. Colonoscopy to be done as outpatient. Symptomatic Acute blood loss anemia From GIB. EGD with gastritis no active bleeding and possible celiac disease. Awaiting biopsy results continue omeprazole received 4 units of prbc will need colonoscopy as outpatient Alcohol use disorder No withdrawal in hospital. Hyponatremia resolved Hypokalemia replaced Seizure disorder Continue carbamazepine Anxiety/depression Continue paroxetine and buspirone DISCHARGE MEDICATIONS: Please see below. ALLERGIES: Please see below. PHYSICAL EXAMINATION ON DISCHARGE: VITAL SIGNS: Please see below. General Exam: Positive: Alert, Cooperative Eye Exam: Positive: EOMI; Negative: Sclera icteric ENT Exam: Positive: Atraumatic Neck Exam: Positive: Supple Chest Exam: Positive: Clear to auscultation Heart Exam: Positive: Rate Normal, Regular Rhythm Extremity Exam: Negative: Edema Skin Exam: Positive: Other skin issue (No bruising of right hip) Neuro Exam: Positive: Normal Speech, Cranial Nerves 3-12 NL Psych Exam: Positive: Mental status NL, Anxiety LABORATORY DATA: Please see below. ACTIVITY: [As tolerated]. DIET:High fiber DISPOSITION: 01 Home, Self-Care. DISCHARGE INSTRUCTIONS: PMD in 1 week Follow up with [facility] for colonoscopy and biopsy results. DISCHARGE CONDITION: [Stable]. TIME SPENT ON DISCHARGE: 35 minutes. Vital Signs/I&Os Vital Signs Date Time Temp Pulse Resp B/P (MAP) Pulse Ox O2 Delivery O2 Flow Rate FiO2 03/06/21 12:00 98.0 86 18 103/63 (76) 96 Room Air I&O- Last 24 Hours up to 6 AM 03/06/21 07:00 Intake Total 3294 ml Balance 3294 ml Laboratory Data Labs 24H Laboratory Tests 2 03/05/21 17:04: Nucleated Red Blood Cells % (auto) 0.4H, Anion Gap 5L, Glomerular Filtration Rate > 60.0, Calcium Level 8.2L 03/06/21 04:55: Nucleated Red Blood Cells % (auto) 0.3H, Anion Gap 9, Glomerular Filtration Rate > 60.0, Calcium Level 7.8L 03/06/21 12:03: Nucleated Red Blood Cells % (auto) 0.3H CBC/BMP Laboratory Tests 03/05/21 17:04 03/06/21 04:55 03/06/21 12:03 Discharge Medications Scheduled Albuterol Sulfate (Albuterol Sulfate Hfa) 8.5 Gm Hfa.aer.ad, 2 PUFF INH QID, (Reported) Buspirone HCl (Buspirone HCl) 7.5 Mg Tablet, 7.5 MG PO BID, (Reported) Carbamazepine (Tegretol) 200 Mg Tablet, 200 MG PO BID, (Reported) Cetirizine HCl (Cetirizine HCl) 10 Mg Tablet, 10 MG PO DAILY, (Reported) Montelukast Sodium (Montelukast Sodium) 10 Mg Tablet, 10 MG PO QHS, (Reported) Naltrexone HCl (Naltrexone HCl) 50 Mg Tablet, 50 MG PO QHS, (Reported) Omeprazole (Omeprazole) 40 Mg Capsule.dr, 1 CAP PO DAILY Paroxetine HCl (Paxil) 10 Mg Tablet, 10 MG PO DAILY, (Reported) Scheduled PRN Fluticasone Propionate (Fluticasone Propionate) 16 Gm Bentley.susp, 1 SPRAY NARES BID PRN for CONGESTION, (Reported) Allergies Coded Allergies: No Known Allergies (Unverified , 07/12/16) Stephanie Fitzpatrick MD Mar 06, 2021 15:34
== END 2021-03-06 14:40 | disposition home or self-care (01) | DRG 253 ==
LOC: M ED 13:37 → M ED INP 17:22 → ENRESERV 03-05 15:00 → M PCU 03-05 19:08
PROVIDERS: ADMIT Internal Medicine; ATTEND Internal Medicine Nephrology
PROC: 30233N1 Transfusion of Nonautologous Red Blood Cells into Peripheral Vein, Percutaneous Approach (ICD-10-PCS; 2021-03-04)
PROC: 0DB98ZX Excision of Duodenum, Via Natural or Artificial Opening Endoscopic, Diagnostic (ICD-10-PCS; principal; 2021-03-05 16:30)
DX: K92.2 Gastrointestinal hemorrhage, unspecified (principal); E87.1 Hypo-osmolality and hyponatremia; G40.909 Epilepsy, unspecified, not intractable, without status epilepticus; F41.9 Anxiety disorder, unspecified; D62 Acute posthemorrhagic anemia; R29.6 Repeated falls; F32.A Depression, unspecified; K31.89 Other diseases of stomach and duodenum; F17.200 Nicotine dependence, unspecified, uncomplicated; K29.70 Gastritis, unspecified, without bleeding; F10.10 Alcohol abuse, uncomplicated; E87.6 Hypokalemia; Z79.899 Other long term (current) drug therapy

== ENCOUNTER → 2023-04-03 | Outpatient (REF) | payer OTHER, MEDICAID ==
[~2023-04-03] MED LIST changes: +ALBU8.5H INH; +B-1100TA2 PO; +BUSP1TAB PO; +FLUTISP NARES; -KETO0.02; +KETO5DRO33; +MONT-5 PO; +MONT10TA97 PO; +OMEP40CA4 PO; -PAXI10TA12 PO; +PAXI10TA13 PO; -SING10TA32 PO
[2023-04-03 15:08] LABS: BASO # 0.1 10^3/uL (0.0-0.2); BASO % 1.3 % (0.0-1.0); EOS # 0.1 10^3/uL (0.0-0.5); EOS % 1.6 % (0.0-3.0); HEMATOCRIT 45.7 % (42.0-52.0); HEMOGLOBIN 15.3 g/dl (13.5-17.5); LYMPH # 2.3 10^3/uL (1.5-5.0); LYMPH % 34.8 % (24.0-44.0); MEAN CORPUSCULAR HGB CONC 33.5 g/dl (32.0-36.5); MEAN CORPUSCULAR VOLUME 98.5 fl (80.0-96.0); MONO # 0.6 10^3/uL (0.0-0.8); MONO % 9.3 % (2.0-8.0); NEUTROPHILS # 3.5 10^3/uL (1.5-8.5); NEUTROPHILS % 52.9 % (36.0-66.0); PLATELET COUNT, AUTOMATED 210 10^3/uL (150-450); RED BLOOD COUNT 4.64 10^6/uL (4.30-6.10); WHITE BLOOD COUNT 6.7 10^3/uL (4.0-10.0)
[2023-04-03 15:33] LABS: ALBUMIN 4.1 G/DL (3.2-5.2); ALKALINE PHOSPHATASE 50 U/L (46-116); ALT/SGPT 27 U/L (7.0-40); AST/SGOT 36 U/L (<34); BILIRUBIN,TOTAL 0.5 MG/DL (0.3-1.2); BLOOD UREA NITROGEN 7 MG/DL (9-23); CARBON DIOXIDE LEVEL 30 MMOL/L (20-31); CHLORIDE LEVEL 104 MMOL/L (98-107); CHOLESTEROL LEVEL 221 MG/DL (<200); CHOLESTEROL RISK RATIO 2.09 (<5); CREATININE FOR GFR 0.71 MG/DL (0.70-1.30); GLOMERULAR FILTRATION RATE > 60.0 (>56); GLUCOSE, FASTING 86 MG/DL (60-100); HDL CHOLESTEROL 105.5 MG/DL (>40); LDL CHOLESTEROL 103.9 MG/DL (<100); NON-HDL-C 115.5 MG/DL; POTASSIUM SERUM 4.9 MMOL/L (3.5-5.1); SODIUM LEVEL 140 MMOL/L (136-145); THYROID STIMULATING HORMONE 1.926 uIU/ML (0.55-4.78); TOTAL PROTEIN 7.8 G/DL (5.7-8.2); TRIGLYCERIDES LEVEL 58 MG/DL (<150)
== END ==
LOC: M LAB REF 12:50
PROVIDERS: ATTEND Family Medicine Addiction Medicine
DX: D64.9 Anemia, unspecified (principal); Z13.228 Encounter for screening for other metabolic disorders

== ENCOUNTER 2023-08-29 17:03 | Emergency (ER) | payer MEDICAID, OTHER ==
[~2023-08-29] VITALS: Ht 172.7 cm; Wt 75.0 kg
[~2023-08-29 17:03] MED LIST changes: +DOXY-323 PO; -DOXY-443 PO
[2023-08-29 17:16] VITALS: BP 156/89; TEMP 97.8; O2SAT 92
[2023-08-29 17:26] LABS: VENOUS BASE EXCESS 0.4 (-2.0-2.0); VENOUS O2 SATURATION 95.6 % (60.0-80.0); VENOUS PARTIAL PRESSURE CO2 39.9 mmHg (38.0-50.0); VENOUS PH 7.414 UNITS (7.330-7.430); VENOUS STANDARD HCO3 24.8 MMOL/L; VENOUS TOTAL CO2 26.2 MMOL/L (24.0-28.0)
[2023-08-29 17:34] LABS: BASO # 0.1 10^3/uL (0.0-0.2); EOS # 0.1 10^3/uL (0.0-0.5); EOS % 1.4 % (0.0-3.0); HEMATOCRIT 42.2 % (42.0-52.0); HEMOGLOBIN 14.6 g/dl (13.5-17.5); LYMPH # 2.3 10^3/uL (1.5-5.0); LYMPH % 41.3 % (24.0-44.0); MEAN CORPUSCULAR HEMOGLOBIN 32.2 pg (27.0-33.0); MEAN CORPUSCULAR HGB CONC 34.6 g/dl (32.0-36.5); MONO # 0.5 10^3/uL (0.0-0.8); MONO % 8.6 % (2.0-8.0); NEUTROPHILS # 2.6 10^3/uL (1.5-8.5); NEUTROPHILS % 46.5 % (36.0-66.0); PLATELET COUNT, AUTOMATED 152 10^3/uL (150-450); RED BLOOD COUNT 4.54 10^6/uL (4.30-6.10); WHITE BLOOD COUNT 5.6 10^3/uL (4.0-10.0)
[2023-08-29 18:04] LABS: SALICYLATE LEVEL < 3.0 MG/DL (<30)
[2023-08-29 18:05] LABS: ALBUMIN 4.3 G/DL (3.2-5.2); ALKALINE PHOSPHATASE 60 U/L (46-116); ALT/SGPT 51 U/L (7.0-40); AST/SGOT 72 U/L (<34); BILIRUBIN,DIRECT 0.2 MG/DL (<0.4); BILIRUBIN,TOTAL 0.7 MG/DL (0.3-1.2); BLOOD UREA NITROGEN 6 MG/DL (9-23); CALCIUM LEVEL 8.2 MG/DL (8.5-10.1); CARBON DIOXIDE LEVEL 23 MMOL/L (20-31); CHLORIDE LEVEL 98 MMOL/L (98-107); CREATININE FOR GFR 0.75 MG/DL (0.70-1.30); GLOMERULAR FILTRATION RATE > 60.0 (>56); GLUCOSE, FASTING 100 MG/DL (60-100); POTASSIUM SERUM 4.1 MMOL/L (3.5-5.1); SODIUM LEVEL 134 MMOL/L (136-145); TOTAL PROTEIN 8.1 G/DL (5.7-8.2)
[2023-08-29 18:07] LABS: THYROID STIMULATING HORMONE 4.722 uIU/ML (0.55-4.78)
[2023-08-29 18:11] LABS: CPK CREATINE PHOSPHOKINASE 243 U/L (46-171)
== END 2023-08-29 18:01 | disposition left against medical advice (07) ==
LOC: EDBD 17:03 → M ED 17:03
DX: F10.120 Alcohol abuse with intoxication, uncomplicated (principal); I10 Essential (primary) hypertension; F32.A Depression, unspecified; F41.9 Anxiety disorder, unspecified; F17.210 Nicotine dependence, cigarettes, uncomplicated; Z79.51 Long term (current) use of inhaled steroids; Z79.899 Other long term (current) drug therapy; Z53.9 Procedure and treatment not carried out, unspecified reason

== ENCOUNTER → 2024-07-19 | Outpatient (REF) | payer MEDICAID ==
[~2024-07-19] MED LIST changes: -CYCL5TAB; +CYCL5TAB4; -DOXY-323 PO; +DOXY-441 PO
== END ==
LOC: M LAB REF 18:24
PROVIDERS: ATTEND Family Medicine Addiction Medicine
DX: F10.10 Alcohol abuse, uncomplicated (principal)

== ENCOUNTER → 2024-12-07 | Outpatient (REF) | LOC: M RAD 13:43 | PROVIDERS: ATTEND Internal Medicine | DX: R52 Pain, unspecified (principal) ==